=== PATIENT | female | born 1980 | race Caucasian/White ===

== ENCOUNTER 2017-11-11 | Emergency (ER) | payer SELFPAY ==
[2017-11-11 00:01] VITALS: BP 154/90; PULSE 91; RESP 21; TEMP 36.4; O2SAT 94; BMI 41.5
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
[2017-11-11] MEDS: fentaNYL 100 MCG/2 ML Ampul 50 MCG IV (00:20)
[2017-11-11] MEDS: 0.9% Normal Saline 1,000 ML 150 ML IV ×2 (00:20→03:51)
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
[2017-11-11 00:50] LABS: Absolute Lymphocyte Count 5.98 X10^3/ul (0.83-4.51); Absolute Neutrophil Count 21.8 X10^3/uL (2.0-7.7); Basophil# 0.06 X10^3/uL; Basophil% 0.2 % (0-1); Differential Indicated SCAN CRITERIA MET; Eosinophil# 0.43 X10^3/uL; Eosinophils% 1.4 % (0-5); Hemoglobin 13.6 g/dl (12.0-15.0); Lymphocyte # 5.98 X10^3/ul (4.0); Mean Corp Hgb Conc 33.2 g/gl (32-36); Mean Corpuscular Hgb 29.6 pg (27.0-32.0); Mean Corpuscular Volume 89.3 fL (81-99); Mean Platelet Vol. 11.4 fl (6.2-12.0); Monocyte# 1.32 X10^3/uL; Monocyte% 4.4 % (0-10); Neutrophil # 21.78 X10^3/uL (2.7-7.7); Neutrophil % 72.8 % (47-70); POSITIVE COUNT NO; POSITIVE DIFFERENTIAL YES; POSITIVE MORPHOLOGY YES; Platelet Count 308 K/mm3 (150-450); RBC Distribution Width CV 13.6 % (11.6-14.6); RBC Distribution Width SD 44.3 fl (35.1-43.9); Red Blood Count 4.59 M/mm3 (4.2-5.4); White Blood Count 29.9 K/mm3 (4.4-11.0)
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
[2017-11-11 01:06] LABS: Anion Gap 7 (5-15); BUN 13 mg/dL (7-18); BUN/Creat Ratio 19.5 RATIO (10-20); Calcium,Total 8.3 mg/dL (8.5-10.1); Chloride 107 mmol/L (98-107); Creatinine, Serum 0.67 mg/dL (0.55-1.02); EST Glomerular Filtration Rate 106 mL/min (>60); Est Glom Filt Rate - Afr Amer 129 mL/min (>60); Estimated Creatinine Clearance 118.22 ml/min; Glucose 211 mg/dL (70-110); Potassium 3.8 mmol/L (3.5-5.1); Sodium Level 140 mmol/L (136-145)
[2017-11-11 01:09] LABS: International Normalized Ratio 1.1; Prothrombin Time (Protime)PT. 13.4 SECONDS (11.7-14.9)
[2017-11-11 01:10] LABS: Partial Thromboplast Time 28.6 Seconds (24.1-36.2)
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
[2017-11-11 01:12] VITALS: BP 128/73; PULSE 82; RESP 18; O2SAT 94
[2017-11-11 02:10] VITALS: BP 145/80; PULSE 76; RESP 14; O2SAT 92
--- NOTE | 2017-11-11 02:35 | ED.RN ---
[facility] CONTACT FOR TRANSFER OF PATIENT AT THIS TIME
[2017-11-11 02:42] LABS: Bacteria 0 SEEN /hpf (None Seen); Color, Urine Red (Yellow); Glucose, Dipstick 50 mg/dl (Normal); Ketone-Dipstick 5 mg/dl (Negative); Leukocyte Esterase-Dipstick 100 /ul (Negative); Mucous, Urine 0 SEEN /hpf (<or=2+); Nitrite-Dipstick Positive (Negative); Occult Blood-Urine 250 /ul (Negative); Protein-Dipstick 100 mg/dl (Negative); Urine Bilirubin Dipstick Negative (Negative); Urine Clarity Cloudy (Clear); Urine Urobilinogen 1 mg/dl (Normal)
[2017-11-11 02:48] LABS: Red Blood Cells-Urine 25-50 SEEN /hpf (0-5); Squamous Epithelial Cells - UA 5-10 SEEN /hpf (5-10); White Blood Cells 10-25 SEEN /hpf (0-5)
--- NOTE | 2017-11-11 02:54 | ED.RN ---
[facility] CALLED FOR TRANSPORT AT THIS TIME
[2017-11-11 03:08] VITALS: BP 153/79; PULSE 78; PULSE 79; RESP 21; TEMP 37; O2SAT 93; O2SAT 94
[2017-11-11 03:09] VITALS: O2SAT 94
--- NOTE | 2017-11-11 03:20 | NURSING ---
REPORT CALLED TO SHAHANA ROBISON
== END 2017-11-11 04:07 | disposition short-term general hospital (02) ==
PROVIDERS: Emergency Provider Emergency Medicine
DX: S37.012A Minor contusion of left kidney, initial encounter (principal); S37.011A Minor contusion of right kidney, initial encounter; S36.029A Unspecified contusion of spleen, initial encounter; S22.32XA Fracture of one rib, left side, initial encounter for closed fracture; S60.212A Contusion of left wrist, initial encounter; S80.12XA Contusion of left lower leg, initial encounter; S80.11XA Contusion of right lower leg, initial encounter; R51 Headache; M54.2 Cervicalgia; E66.9 Obesity, unspecified; E11.9 Type 2 diabetes mellitus without complications; V89.2XXA Person injured in unspecified motor-vehicle accident, traffic, initial encounter; Y93.9 Activity, unspecified; Y92.9 Unspecified place or not applicable; Z79.84 Long term (current) use of oral hypoglycemic drugs; Z79.4 Long term (current) use of insulin
CPT/HCPCS: 70450; 71045; 71260; 72125; 72170; 73110; 73590; 74177; 80048; 81001; 85025; 85610; 85730; 86850; 86900; 93005; 96361; 96374; 99285; J7030; Q9967; A4216

== ENCOUNTER 2017-11-24 16:32 | Emergency (ER) | payer SELFPAY ==
[2017-11-24 16:32] VITALS: BP 124/86; PULSE 88; RESP 16; TEMP 36.7; O2SAT 97; BMI 36.9
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
== END 2017-11-24 18:32 | disposition home or self-care (01) ==
PROVIDERS: Emergency Provider Emergency Medicine
DX: S22.32XA Fracture of one rib, left side, initial encounter for closed fracture (principal); V89.2XXA Person injured in unspecified motor-vehicle accident, traffic, initial encounter; W19.XXXA Unspecified fall, initial encounter; Y93.9 Activity, unspecified; Y92.9 Unspecified place or not applicable; J98.11 Atelectasis; E66.9 Obesity, unspecified; E11.9 Type 2 diabetes mellitus without complications; Z79.84 Long term (current) use of oral hypoglycemic drugs; Z79.4 Long term (current) use of insulin; Z72.0 Tobacco use
CPT/HCPCS: 71250; 99282

== ENCOUNTER 2017-12-29 18:33 | Emergency (ER) | payer OTHER, SELFPAY ==
[2017-12-29 18:34] VITALS: BP 133/82; PULSE 82; RESP 14; TEMP 36.8; O2SAT 97; BMI 35.9
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
--- NOTE | 2017-12-29 19:24 | ED.DEP ---
ED Disposition - Plan for ED Patient: Chief Complaint: Ear Problem Instructions: ED Otitis Externa Prescriptions: Hydrocodone Bitart/Apap 5-325 [[place] 5/325] 1 tab PO Q6H PRN PRN 3 Days #12 tab PRN Reason: Pain Ciprofloxacin HCl/Dexameth [Ciprodex Otic Suspension] 4 drp RIGHT EAR BID 7 Days drops.susp
[2017-12-29 19:40] VITALS: PULSE 87; RESP 14; O2SAT 96
== END 2017-12-29 19:42 | disposition home or self-care (01) ==
PROVIDERS: Emergency Provider Emergency Medicine
DX: M26.601 Right temporomandibular joint disorder, unspecified (principal); H60.91 Unspecified otitis externa, right ear; Z87.828 Personal history of other (healed) physical injury and trauma; E11.9 Type 2 diabetes mellitus without complications; Z79.4 Long term (current) use of insulin; Z79.84 Long term (current) use of oral hypoglycemic drugs; Z72.0 Tobacco use
CPT/HCPCS: 99282

== ENCOUNTER 2018-03-06 20:05 | Emergency (ER) | payer OTHER, SELFPAY ==
[2018-03-06 20:06] VITALS: BP 121/57; PULSE 76; RESP 20; TEMP 36.7; O2SAT 97; BMI 35.8
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
[2018-03-06 20:57] LABS: Bacteria 0 SEEN /hpf (None Seen); Mucous, Urine 0 SEEN /hpf (<or=2+); White Blood Cells 0 SEEN /hpf (0-5)
[2018-03-06 20:58] LABS: Color, Urine Yellow (Yellow); Glucose, Dipstick Normal (Normal); Ketone-Dipstick Negative (Negative); Leukocyte Esterase-Dipstick Negative /ul (Negative); Nitrite-Dipstick Negative (Negative); Occult Blood-Urine 25 /ul (Negative); Protein-Dipstick Negative (Negative); Specific Gravity, Urine 1.015 (1.002-1.030); Urine Bilirubin Dipstick Negative (Negative); Urine Clarity Clear (Clear); Urine Urobilinogen Normal (Normal)
[2018-03-06] MEDS: 0.9% Normal Saline 1,000 ML 250 ML IV (21:02)
[2018-03-06] MEDS: Ondansetron 4 MG/2 ML Vial IV (21:02)
[2018-03-06] MEDS: Ketorolac 30 MG/ML Syringe IV (21:02)
[2018-03-06 21:12] LABS: Absolute Lymphocyte Count 4.09 X10^3/ul (0.83-4.51); Absolute Neutrophil Count 5.6 X10^3/uL (2.0-7.7); Basophil# 0.05 X10^3/uL; Basophil% 0.5 % (0-1); Eosinophils% 4.6 % (0-5); Hematocrit 46.2 % (37-47); Hemoglobin 15.8 g/dl (12.0-15.0); Lymphocyte # 4.09 X10^3/ul (4.0); Lymphocyte % 37.6 % (19-41); Mean Corp Hgb Conc 34.2 g/gl (32-36); Mean Corpuscular Hgb 29.4 pg (27.0-32.0); Mean Corpuscular Volume 85.9 fL (81-99); Mean Platelet Vol. 11.6 fl (6.2-12.0); Monocyte# 0.63 X10^3/uL; Monocyte% 5.8 % (0-10); Neutrophil # 5.57 X10^3/uL (2.7-7.7); POSITIVE COUNT NO; POSITIVE DIFFERENTIAL NO; POSITIVE MORPHOLOGY NO; Platelet Count 301 K/mm3 (150-450); RBC Distribution Width CV 13.8 % (11.6-14.6); RBC Distribution Width SD 43.1 fl (35.1-43.9); Red Blood Count 5.38 M/mm3 (4.2-5.4); White Blood Count 10.9 K/mm3 (4.4-11.0)
[2018-03-06 21:16] LABS: Red Blood Cells-Urine 0-5 SEEN /hpf (0-5); Squamous Epithelial Cells - UA 0-5 SEEN /hpf (5-10)
[2018-03-06 21:23] LABS: Anion Gap 6 (5-15); BUN 5 mg/dL (7-18); BUN/Creat Ratio 9.6 RATIO (10-20); Calcium,Total 8.7 mg/dL (8.5-10.1); Chloride 103 mmol/L (98-107); Creatinine, Serum 0.52 mg/dL (0.55-1.02); EST Glomerular Filtration Rate 141 mL/min (>60); Est Glom Filt Rate - Afr Amer 171 mL/min (>60); Estimated Creatinine Clearance 140.01 ml/min; Glucose 113 mg/dL (74-106); Potassium 3.6 mmol/L (3.5-5.1); Sodium Level 138 mmol/L (136-145)
[2018-03-06 21:28] LABS: Pregnancy, Serum, hCG Quali. NEGATIVE Negative (0-9 Nonpreg)
[2018-03-06 22:49] VITALS: BP 108/69; PULSE 71; RESP 16; O2SAT 100
== END 2018-03-06 22:51 | disposition home or self-care (01) ==
PROVIDERS: Emergency Provider Emergency Medicine
DX: S22.42XK Multiple fractures of ribs, left side, subsequent encounter for fracture with nonunion (principal); V89.2XXD Person injured in unspecified motor-vehicle accident, traffic, subsequent encounter; R30.0 Dysuria; R35.0 Frequency of micturition; M54.9 Dorsalgia, unspecified; E11.9 Type 2 diabetes mellitus without complications; Z87.891 Personal history of nicotine dependence; Z79.84 Long term (current) use of oral hypoglycemic drugs; Z79.4 Long term (current) use of insulin
CPT/HCPCS: 74176; 80048; 81001; 84703; 85025; 96361; 96374; 96375; 99284; J7030; A4216; J2405

== ENCOUNTER 2018-04-11 14:18 | Emergency (ER) | payer OTHER, SELFPAY ==
[2018-04-11 14:18] VITALS: BP 138/79; PULSE 85; RESP 18; TEMP 37.1; O2SAT 98; BMI 35.8
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
[2018-04-11 17:02] VITALS: BP 132/78; PULSE 76; RESP 16; O2SAT 98
== END 2018-04-11 17:07 | disposition home or self-care (01) ==
LOC: ED 15:29
PROVIDERS: Emergency Provider Emergency Medicine
DX: S80.02XA Contusion of left knee, initial encounter (principal); M25.511 Pain in right shoulder; M54.2 Cervicalgia; W01.0XXA Fall on same level from slipping, tripping and stumbling without subsequent striking against object, initial encounter; W50.0XXA Accidental hit or strike by another person, initial encounter; Y93.9 Activity, unspecified; Y92.9 Unspecified place or not applicable; J45.909 Unspecified asthma, uncomplicated; E11.9 Type 2 diabetes mellitus without complications; Z79.4 Long term (current) use of insulin; Z79.84 Long term (current) use of oral hypoglycemic drugs; Z72.0 Tobacco use
CPT/HCPCS: 72040; 73030; 73564; 99282

== ENCOUNTER 2018-08-22 23:35 | Emergency (ER) | payer OTHER, SELFPAY ==
[2018-08-22 23:36] VITALS: BP 114/87; PULSE 83; RESP 18; TEMP 37; O2SAT 97; BMI 35.5
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
[2018-08-23 01:06] LABS: Bedside Glucose 319 mg/dL (70-110)
[2018-08-23 02:22] VITALS: BP 138/78; PULSE 78; RESP 16; O2SAT 98
--- NOTE | 2018-08-23 02:25 | ED.DEP ---
ED Disposition - Plan for ED Patient: Chief Complaint: Lower Extremity Injury Instructions: ED Sprain Ankle W X Ray, ED Hyperglycemia Diabetic Prescriptions: Glipizide 10 mg PO DAILY #60 tab Metformin HCl 1,000 mg PO BID #60 tab Referrals: Care Physician,No Primary [Primary Care Provider] - Additional Instructions: Follow-up with your doctor on September 07 as scheduled. Continue using ibuprofen for ankle pain. Wear the splint as needed for comfort. Rest the ankle, elevate the leg and apply ice to the ankle 3-4 times a day for 20 minutes each time to help with pain and swelling. Take your diabetic medications as prescribed until you follow-up with your doctor and have a reevaluation for any needed changes. If you have any worsening of your condition or any new concerning symptoms, please return immediately to the emergency department for another evaluation.
== END 2018-08-23 02:32 | disposition home or self-care (01) ==
PROVIDERS: Emergency Provider Emergency Medicine
DX: S93.401A Sprain of unspecified ligament of right ankle, initial encounter (principal); W01.0XXA Fall on same level from slipping, tripping and stumbling without subsequent striking against object, initial encounter; Y93.9 Activity, unspecified; Y92.9 Unspecified place or not applicable; E11.65 Type 2 diabetes mellitus with hyperglycemia; Z91.14 Patient's other noncompliance with medication regimen; Z79.84 Long term (current) use of oral hypoglycemic drugs
CPT/HCPCS: 73590; 73610; 82962; 99283

== ENCOUNTER 2019-01-07 08:19 | Emergency (ER) | payer OTHER, SELFPAY ==
[2019-01-07 08:19] VITALS: BMI 36.9
[2019-01-07 08:21] VITALS: BP 155/100; PULSE 89; RESP 20; TEMP 36.4; O2SAT 98; BMI 35.0
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
--- NOTE | 2019-01-07 08:39 | ED.DCSUM_ITS ---
- ER Visit Summary Date of Service: 01/07/19 Chief Complaint: Right facial pain History of Present Illness: The patient is a 38 F who states she has a history of TMJ pain and since yesterday afternoon she has been crying with pain. She states that all over the right side of her face and into her ear. She states she recently had a right otitis media for which she took antibiotics. She denies any rash. Her pain is worse with chewing. She notes that she has very bad dentition but cannot afford to have her teeth pulled. She denies any new dental pain. No recent rhinorrhea or sinus issues. No fevers. She states my is somewhere and hates me. She denies any physical abuse she denies any emotional abuse. She denies any suicidal or homicidal ideation. Physical Examination: Afebrile vital signs are stable Gen: Well-nourished well-developed Head: Normocephalic atraumatic Eyes: Perrl EOMI ENT: TMs clear no rhinorrhea moist mucous membranes extremely poor dentition. There is no dental abscess noted. There is no trismus. There is no rash of the face or ear canal. There is no neck swelling or significant lymphadenopathy. Neck: Supple no lymphadenopathy no JVD nontender CVS: Regular rate rhythm no murmurs normal S1-S2 Respiratory: No distress clear to auscultation bilaterally chest nontender Abdomen: Soft nontender nondistended normal bowel sounds no masses Back: Nontender Extremity: Nontender no edema Skin: Normal color no rash Neuro: alert orientated ?3 CN II-XII intact normal strength sensation reflexes gait cerebellar Psych: Patient stops crying to give an angry response Emergency Department Course and Treatment: Patient will be given a dose of Toradol and Norflex IM. I will write for Toradol and Flexeril at home. She wishes to see ENT for consultation I will give her ENT medical scientific liaison. She is a diabet ic and states she does not have a primary care physician. She states that she has no time to see one. Patient was advised that she really should establish with one. Impression: 1. Right facial pain This note was generated with [employer] dictation software. It may contain incorrect words, spelling, and punctuation that were not noted in review of the chart prior to signing ED Disposition - Plan for ED Patient: Disposition: Home or Assisted Living Instructions: ED TMJ Syndrome Prescriptions: Ketorolac [Toradol] 10 mg PO Q8H PRN #15 tab PRN Reason: Pain Cyclobenzaprine [Flexeril] 10 mg PO TID PRN #15 tab PRN Reason: Muscle Spasm Referrals: Richard Sandoval MD [STAFF PHYSICIAN] - (CALL FOR ENT EVALUATION OF YOUR TMJ)
[2019-01-07] MEDS: Ketorolac 60 MG/2 ML Vial IM (08:40)
[2019-01-07] MEDS: Orphenadrine 60 MG/2 ML Ampul IM (08:40)
[2019-01-07 09:03] VITALS: BP 145/78; PULSE 80; RESP 16; O2SAT 97
== END 2019-01-07 09:11 | disposition home or self-care (01) ==
LOC: ED 09:06
PROVIDERS: Emergency Provider Emergency Medicine
DX: R51 Headache (principal); E11.9 Type 2 diabetes mellitus without complications; Z72.0 Tobacco use
CPT/HCPCS: 96372; 99282

== ENCOUNTER 2019-04-16 17:10 | Emergency (ER) | payer OTHER, SELFPAY ==
[2019-04-16 17:11] VITALS: BP 107/62; PULSE 84; RESP 16; TEMP 35.7; O2SAT 96; BMI 32.8
[2019-04-16] MEDS: morphine 8 MG/ML Syringe IV (18:39)
[2019-04-16] MEDS: Ondansetron 4 MG/2 ML Vial IV (18:39)
[2019-04-16] MEDS: 0.9% Normal Saline 1,000 ML 1000 ML IV (18:39)
[2019-04-16 18:50] LABS: Bedside Glucose 357 mg/dL (70-110)
[2019-04-16 18:50] LABS: Bedside Glucose 338 mg/dL (70-110)
--- NOTE | 2019-04-16 19:35 | ED.VISSUMM ---
- ER Visit Summary Date of Service: 04/16/19 Chief Complaint: Abscess History of Present Illness: The patient is a 38 F presenting with abscess on her buttock. She states she noticed this on Tuesday. She complains of pain with sitting. She states she noticed drainage from the abscess today. She has been using warm compresses. She has a history of similar complaints. She has a history of diabetes. She presents due to concern of possibly needing antibiotics. Denies other complaints. Physical Examination: Vitals are stable. Patient is afebrile. Alert no acute distress. HEENT exam is unremarkable. Neck is supple. Lungs are clear and equal bilaterally. Heart is regular rate and rhythm. Abdomen is soft nontender nondistended. Right buttock 3 cm abscess with drainage, does not track toward the rectum Extremities are unremarkable. Skin is warm and dry. No focal neurologic deficit. Remainder of exam is unremarkable. Emergency Department Course and Treatment: Abscess is already draining. She was offered I&D. Patient declines this procedure. BGT was 338. She was given IV fluids, morphine, Zofran. She was given Bactrim and Keflex. She is advised to watch this closely for worsening infection. Advised to follow-up with primary care physician. Advised return to ED if worsening complaints. Disposition: Discharge home Impression: Abscess, buttock This note was generated with [employer] dictation software. It may contain incorrect words, spelling, and punctuation that were not noted in review of the chart prior to signing ED Disposition - Plan for ED Patient: Referrals: Care Physician,No Primary [Primary Care Provider] -
--- NOTE | 2019-04-16 19:35 | ED.RN ---
DR. FOSTER SAID I COULD STOP DOING SEPSIS SCREENS ON THIS PATIENT.
[2019-04-16] MEDS: Insulin Lispro 100 UNIT/ML INSULN.PEN 10 UNIT SC (19:40)
[2019-04-16] MEDS: Smz/Tmp Ds Tablet 1 TABLET PO (19:40)
[2019-04-16] MEDS: Cephalexin 250 MG Capsule 500 MG PO (19:41)
[2019-04-16 19:45] VITALS: BP 97/55; PULSE 85; RESP 20; O2SAT 95
[2019-04-16 20:36] LABS: Bedside Glucose 311 mg/dL (70-110)
--- NOTE | 2019-04-16 21:12 | ED.DEP ---
ED Disposition - Plan for ED Patient: Instructions: ABSCESS, Antiobiotic Treatment Only Prescriptions: Smz/Tmp Ds [Bactrim Ds] 1 tablet PO BID #14 tablet Cephalexin [Keflex] 500 mg PO Q6 #40 capsule Referrals: Douglas Gutierrez III, MD [STAFF PHYSICIAN] -
[2019-04-16 21:47] LABS: Anion Gap 6 (5-15); BUN 7 mg/dL (7-18); BUN/Creat Ratio 12.3 RATIO (10-20); Calcium,Total 8.4 mg/dL (8.5-10.1); Chloride 101 mmol/L (98-107); Creatinine, Serum 0.57 mg/dL (0.55-1.02); EST Glomerular Filtration Rate 127 mL/min (>60); Est Glom Filt Rate - Afr Amer 154 mL/min (>60); Glucose 272 mg/dL (74-106); Potassium 3.9 mmol/L (3.5-5.1); Sodium Level 134 mmol/L (136-145)
[2019-04-16 22:03] VITALS: BP 116/53; PULSE 62; RESP 18; O2SAT 93
== END 2019-04-16 22:05 | disposition home or self-care (01) ==
PROVIDERS: Emergency Provider Emergency Medicine
DX: L02.31 Cutaneous abscess of buttock (principal); E11.9 Type 2 diabetes mellitus without complications; Z79.84 Long term (current) use of oral hypoglycemic drugs; Z79.4 Long term (current) use of insulin
CPT/HCPCS: 80048; 82962; 96361; 96372; 96374; 96375; 99284; J7030; A4216; J2405

== ENCOUNTER 2019-04-22 18:03 | Inpatient (IN) | payer OTHER, SELFPAY ==
[2019-04-22] VITALS (10 sets, daily range): BP systolic 117–139; BP diastolic 70–91; PULSE 89–102; RESP 16–18; TEMP 36.9–37.7; O2SAT 92–98; BMI 33.3
--- NOTE | 2019-04-22 | ABS_PTH ---
PATIENT: SYDNEY SILVER LOC: [facility] U#:[id number] AGE/SX: 38/F ROOM: ICU02 RE04/22/[address]: Dr. Krissy Dumont DO : 1980 BED: 1 DIS: 04/25/2019 SPEC #: [id number] RECD: 04/23/19 07:47 STATUS: BOB REQ #: [id number] MARY: 04/22/19 00:[address]: Bryce Huynh DEPT: SURGICAL PATHOLOGY RECD BY: Tc Shepard ENTERED: 04/23/19 11:02 SP TYPE: Abscess OTHR DR: DO Dr. Tevin Driscoll MD Dr. Marc Fiorentino, MD Dr. Richard Guttman, MD Julie Podlogar, SHOT LIGHTER-C Tissues: Perineum, NOS Procedures: PAS Fungus (control) Special Stain Group I Surgery Specimen Level III AFB Stain (control) Comments: @ Ordering doctor for SUIII edited from to @ chelsea GASPAR at 04/23/19 1424 @ Submitting doctor edited from to @ by HUBERT at 04/23/19 1424 HEADER OPERATION: Incision and drainage perirectal abscess PRE-OP DIAGNOSIS: Perirectal abscess TISSUE SUBMITTED: Skin and fat, necrotizing fasciitis MICROSCOPIC DIAGNOSIS Skin and fat, necrotizing fasciitis: Pieces of skin and fibroadipose and fibroconnective tissue with acute inflammation and abscess formation. Special stains for acid fast bacilli and fungi are negative for organisms; matched controls are appropriate. CORRIE:patrick 04/24/19 MICROSCOPIC DESCRIPTION Slides are reviewed. GROSS DESCRIPTION Received in fixative is one container labeled with the patient's name and designated skin and fat, necrotizing fasciitis. The specimen consists of multiple irregular fragments of skin with underlying tissue that in aggregate measure 15 x 13 x 5 cm. Sections of the underlying tissue reveal congested, hemorrhagic and necrotic cut surfaces. Gang Worker sections are submitted in three cassettes. / CORRIE:patrick 04/23/19 TC:2 CPT: 68428, 52947 x2
--- NOTE | 2019-04-22 18:14 | CT_ITS ---
STUDY: CT PELVIS WITHOUT CONTRAST REASON FOR EXAM: Female, 38 years old. Right buttock abscess, one week, leukocytosis, on antibiotics, previously seen April 16. RADIATION DOSAGE (If Supplied By Facility): CTDIvol = ( 28.20 ) mGy, DLP = ( 1169.16 ) mGycm TECHNIQUE: Transaxial imaging of the pelvis was performed without oral contrast, and without intravenous administration of contrast material. Coronal and sagittal 2-D MPR Individualized dose optimization techniques were used for this CT. COMPARISON: CT abdomen and pelvis 03/06/2018, 11/11/2017 FINDINGS: Body wall soft tissues: There is diffuse severe edema throughout the inferior most aspect of the right gluteal superficial soft tissues, involving the subcutaneous fat, extending into the proximal medial thigh, associated with prominent skin thickening, with mild edema extending into the right labia. Moderate edema extending upward in the right inguinal canal. There is no defined abscess. Shotty right and left inguinal lymph nodes not pathologically enlarged. Right iliac chain lymph node just deep to the internal inguinal ring, enlarged, 19 mm. Osseous structures: No acute process. Intrapelvic: Esparza catheter in place. No acute intrapelvic process is evident. CT/Pelvis without IV Contrast IMPRESSION: Extensive cellulitis of the inferior right buttock soft tissues extending into the proximal medial thigh, perineum and right labia. Without abscess. Associated with mild lymphadenopathy. Electronically Signed: Bryce Macedo MD at 19:27 EDT Tel , Service support ,
[2019-04-22] MEDS: 0.9% Normal Saline 1,000 ML 150 ML IV (18:21)
[2019-04-22] MEDS: Ondansetron 4 MG/2 ML Vial IV (18:22)
[2019-04-22] MEDS: Morphine 4 MG/ML Syringe IV (18:23)
[2019-04-22 18:45] LABS: Absolute Lymphocyte Count 1.88 X10^3/ul (0.83-4.51); Absolute Neutrophil Count 14.9 X10^3/uL (2.0-7.7); Basophil# 0.06 X10^3/uL; Basophil% 0.3 % (0-1); Eosinophil# 0.14 X10^3/uL; Eosinophils% 0.7 % (0-5); Hematocrit 40.8 % (37-47); Hemoglobin 14.3 g/dl (12.0-15.0); Lymphocyte # 1.88 X10^3/ul (4.0); Lymphocyte % 9.9 % (19-41); Mean Corpuscular Hgb 30.1 pg (27.0-32.0); Mean Corpuscular Volume 85.9 fL (81-99); Mean Platelet Vol. 12.1 fl (6.2-12.0); Monocyte# 1.66 X10^3/uL; Monocyte% 8.8 % (0-10); Neutrophil # 14.92 X10^3/uL (2.7-7.7); Neutrophil % 78.7 % (47-70); Platelet Count 319 K/mm3 (150-450); RBC Distribution Width CV 13.1 % (11.6-14.6); RBC Distribution Width SD 41.3 fl (35.1-43.9); Red Blood Count 4.75 M/mm3 (4.2-5.4)
[2019-04-22 18:46] LABS: Anion Gap 7 (5-15); BUN 11 mg/dL (7-18); BUN/Creat Ratio 18.1 RATIO (10-20); Calcium,Total 9.1 mg/dL (8.5-10.1); Chloride 98 mmol/L (98-107); Creatinine, Serum 0.61 mg/dL (0.55-1.02); Differential Indicated SCAN CRITERIA MET; EST Glomerular Filtration Rate 117 mL/min (>60); Est Glom Filt Rate - Afr Amer 142 mL/min (>60); Estimated Creatinine Clearance 118.21 ml/min; Glucose 343 mg/dL (74-106); POSITIVE COUNT NO; POSITIVE DIFFERENTIAL YES; POSITIVE MORPHOLOGY NO; Potassium 3.7 mmol/L (3.5-5.1); Sodium Level 130 mmol/L (136-145)
[2019-04-22 19:13] LABS: Differential Comment SCANNED
--- NOTE | 2019-04-22 19:52 | ED.VISSUMM ---
- ER Visit Summary Date of Service: 04/22/19 Chief Complaint: [Abscess on right buttock] History of Present Illness: The patient is a 38 F [resents to the emergency department complaint of an abscess to the right buttock that she has had there for about 9 days. Patient was seen in the emergency department about 6 days ago started on Bactrim and cephalexin. At that time patient states that the wound was draining. Patient states that she is not getting better and now has severe pain and having a hard time getting out of bed secondary to pain. Patient is having a hard time moving around because of the pain. The wound continues to drain. Patient has had subjective fever and sweats at home. Patient is a diabetic. She denies prior surgical history.] Physical Examination: [HEENT-PERRLA, EOMI. Cranial nerves II through XII grossly intact. TMs clear. Mucous membranes moist. No adenopathy. Cardiovascular-regular rate and rhythm without murmur or ectopy Lungs-clear to auscultation, chest wall stable without crepitus or subcu emphysema Abdomen-normoactive bowel sounds, soft, nontender, no rebound or rigidity, no peritoneal signs. Right buttock-patient has diffuse erythema, induration, and cellulitic changes. Patient has blistering of the skin. There is a foul-smelling odor and drainage noted from the wound. Extremities-intact ?4, normal range of motion, normal pulses, atraumatic] Test Results: [CBC with differential obtained showed a white blood cell count of 19,000, hemoglobin 14, hematocrit 41, platelets 319. Chemistries unremarkable. CT scan of the pelvis without contrast showed cellulitic changes however no discrete abscess.] Emergency Department Course and Treatment: [Patient was started on vancomycin and Zosyn. Patient was given morphine and Zofran for pain. Case was discussed with Dr. Bryce Gregorio who is on-call for general surgery who evaluated patient and believes that the wound will require surgical debridement. Patient will be taken to the operating room and then admitted.] Treatment Plan: [to OR for surgical incision and drainage and debridement.] Disposition: [Admit] Impression: [Right buttock abscess/cellulitis] This note was generated with Tomfooleryation software. It may contain incorrect words, spelling, and punctuation that were not noted in review of the chart prior to signing ED Disposition - Plan for ED Patient: Referrals: DanylogYusra blas DIRECTOR OF RESEARCH-C [Primary Care Provider] -
[2019-04-22 20:21] LABS: Bedside Glucose 303 mg/dL (70-110)
[2019-04-22 20:45] LABS: Internal QC Validated? YES +Cl - CLEAR BKGD; Pregnancy, Serum, hCG Quali. NEGATIVE Negative
--- NOTE | 2019-04-22 21:22 | PCM.CONS.GEN ---
Reason for Consult Date of Consultation: 04/22/19 Reason for Consultation: BUTTOCK ABSCESS/RULE OUT NECROTIZING INFECTION History of Present Illness: The patient is a 38 year old F with a 9 day history of a right buttock/peroneal abscess. She was seen in the ER 6 days previously and started on oral antibiotics - Bactrim and Keflex. She is now noting poorly controlled blood glucose, purulent drainage and spreading, painful redness. She presented to the ER. WBC count 19,000, blood glucose>300. CT scan of the pelvis was obtained. There was noted to have diffuse severe edema throughout the inferior aspect of the right gluteal soft tissue areas involving the saphenous fat extending the proximal medial thigh with associated skin thickening and edema extending the right labia. There was edema extending up regarding the right inguinal canal without blood was listed as defined abscess. the patient has a history of type 2 diabetes. She denies other significant past medical history. She has no past surgical history. she smokes with history of one half pack of cigarettes per day. She notes very rare alcohol use. She denies other substances. Past Medical History Past Medical History (Chronic Problems): Chronic Problems Asthma (Chronic) Type 2 diabetes mellitus (Chronic) Allergies clindamycin Allergy (Verified 04/22/19 18:04) Hives BURING AND ITCHING SKIN WITH HIVES Home Medications: Ambulatory Orders Medication Instructions Recorded Glipizide 10 mg PO DAILY #60 tab 08/23/18 Metformin HCl 1,000 mg PO BID #60 tab 08/23/18 Cephalexin [Keflex] 500 mg PO Q6 #40 cap 04/16/19 Insulin NPH Human Isophane 10 units SQ BID 04/16/19 [Novolin N] Smz/Tmp Ds [Bactrim Ds] 1 tab PO BID #14 tab 04/16/19 Surgical History: no surgical history Smoking Status: Current every day smoker - *Family History Maternal History Items: Unknown - Adopted. Paternal History Items: Unknown - Patient is adopted. Review of Systems Constitutional: Reports: Fever, Weakness, Fatigue Cardiovascular: Denies: Chest Pain, Palpitations Respiratory: Denies: Cough Gastrointestinal: Denies: Abdominal Pain, Nausea, Vomiting Genitourinary: Denies: Dysuria Musculoskeletal: Denies: Joint Pain, Joint Tenderness Skin: Reports: Skin Changes Neurological: Denies: Numbness, Tingling, Focal weakness Patient Problems: Active and Suspected Problems Acute right gluteal cellulitis (Acute) - Physical Exam General: Alert, Oriented x3, Cooperative, - - tearful Lungs: Clear to auscultation, Normal air movement Cardiovascular: Regular rate, No murmurs Abdomen: Bowel Sounds Present, Soft, Non Tender Extremities: - - right buttock and perineal area-large spreading bright red erythematous area with 3 sinuses draining purulent reddish brown pus just lateral to the right posterior labial area. This has edema on the entire labia and some edema on the inner thigh Vital Signs Temp Pulse Resp BP Pulse Ox 99.0 F 95 18 121/80 H 97 04/22/19 20:04 04/22/19 20:04 04/22/19 20:04 04/22/19 20:04 04/22/19 20:04 Oxygen Delivery Method Room Air Weight: 93.5 kg Body Mass Index (BMI) 33.3 Finger Stick Blood Glucose 311 Laboratory Tests Past 24 Hrs 04/22/19 04/22/19 04/22/19 18:17 18:17 18:17 WBC 19.0 H RBC 4.75 Hgb 14.3 Hct 40.8 MCV 85.9 MCH 30.1 MCHC 35.0 RDW 13.1 RDW Differential 41.3 Plt Count 319 MPV 12.1 H Immature Gran % (Auto) 1.600 H Neut % (Auto) 78.7 H Lymph % (Auto) 9.9 L [place] % (Auto) 8.8 Eos % (Auto) 0.7 Baso % (Auto) 0.3 Absolute Neuts (auto) 14.9 H Absolute Lymphs (auto) 1.88 Total Counted Not Reportable Differential Comment SCANNED Sodium 130 L Potassium 3.7 Chloride 98 Carbon Dioxide 25.0 Anion Gap 7 BUN 11 Creatinine 0.61 Estim Creat Clear Calc 118.21 Est GFR (MDRD) Af Amer 142 Est GFR (MDRD) Non-Af 117 BUN/Creatinine Ratio 18.1 Glucose 343 H Lactic Acid Calcium 9.1 Serum , Qual NEGATIVE 04/22/19 20:00 WBC RBC Hgb Hct MCV MCH MCHC RDW RDW Differential Plt Count MPV Immature Gran % (Auto) Neut % (Auto) Lymph % (Auto) [place] % (Auto) Eos % (Auto) Baso % (Auto) Absolute Neuts (auto) Absolute Lymphs (auto) Total Counted Differential Comment Sodium Potassium Chloride Carbon Dioxide Anion Gap BUN Creatinine Estim Creat Clear Calc Est GFR (MDRD) Af Amer Est GFR (MDRD) Non-Af BUN/Creatinine Ratio Glucose Lactic Acid Cancelled Calcium Serum , Qual POC Glucose 04/22/19 20:06 POC Glucose 303 H Assessment/Plan All Active Problems Acute right gluteal cellulitis (Acute) abscess, examination most consistent with necrotizing fasciitis Iplan for OR exploration/possible drainage with anticipated wide debridementdebridment. The patient understands the risks, benefits, complications and alternatives to surgical procedure understands that there is a likelihood that she'll have a wide tissue debridement given the patient's clinical findings. The patient consents. we'll plan for broad-spectrum antibiotics-Zosyn and vancomycin area Cultures will be taken. Patient's blood glucoses will be monitored and she will placed on a sliding scale. I will consult hospitalist service for assistance in her management. If this is necrotizing fasciitis is anticipated we will consult plastic surgery for further debridement/management/wound care postoperatively
--- NOTE | 2019-04-22 21:25 | HP.PCM_ITS ---
Problem List (1) Acute right gluteal cellulitis Status: Acute (2) Asthma Status: Chronic (3) Type 2 diabetes mellitus Status: Chronic History of Present Illness Date of Admission: 04/22/19 Chief Complaint: Worsening pain, erythema and drainage of the right buttock infection. The patient is a 38 year old F with past medical history as mentioned above presented to the emergency room because of worsening pain, drainage and redness on the right buttock. Patient was seen in PACU right before going for surgery. Around 9 days ago, patient was seen in the emergency department for right buttock pain, redness and swelling, was discharged on Bactrim and Keflex for acute right gluteal cellulitis. Patient stated that she has been taking Bactrim and Keflex for the last 6 days. She complained of increasing pain on the right buttock, dull aching pain, 7-8 out of 10 in severity, associated with increasing redness, blistering and drainage, also associated with subjective fever,aggravated by even minimal touch or any movement and without relieving factors. He mentioned that the wound continued to drain over the past several days. In the emergency department, she was afebrile, blood pressure on arterial stable, pulse ox was maintained on room air. Routine blood work was remarkable for leukocytosis, sodium of 130, otherwise normal. Her blood sugar was 343. CT scan of the pelvis without contrast revealed extensive cellulitis of the inferior right buttock extending to the proximal medial thigh, perineum and right labia without abscess formation. She is going for surgery at this time and she will be admitted afterwards for acute right gluteal/right buttock cellulitis with suspected abscess, extending into the proximal right medial thigh, perineum and right labia. Past Medical History Past Medical History (Chronic Problems): Chronic Problems Asthma (Chronic) Type 2 diabetes mellitus (Chronic) Allergies clindamycin Allergy (Verified 04/22/19 18:04) Hives BURING AND ITCHING SKIN WITH HIVES Home Medications: Ambulatory Orders Medication Instructions Recorded Glipizide 10 mg PO DAILY #60 tab 08/23/18 Metformin HCl 1,000 mg PO BID #60 tab 08/23/18 Cephalexin [Keflex] 500 mg PO Q6 #40 cap 04/16/19 Insulin NPH Human Isophane 10 units SQ BID 04/16/19 [Novolin N] Smz/Tmp Ds [Bactrim Ds] 1 tab PO BID #14 tab 04/16/19 Surgical History: no surgical history Psychiatric History: No pertinent psych hx 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 Paternal History Items: Unknown - Patient is adopted. Review of Systems Constitutional: Reports: Fever. Denies: Anorexia, Chills, Weakness Eyes: Denies: Blurred vision, Double vision, Drainage, Redness HEENT: Denies: Difficulty Hearing, Ear Pain, Eye Pain, Nasal Congestion, Sore Throat Cardiovascular: Denies: Chest Pain, Chest Pressure, Chest Tightness, Edema, Heaviness, Palpitations, Syncope Respiratory: Denies: Cough, Hemoptysis, Pleuritic Pain, Shortness of Breath, Sputum production, Wheezing Gastrointestinal: Denies: Abdominal Pain, Constipation, Diarrhea, Nausea, Vomiting Genitourinary: Denies: Dysuria, Frequency, Hematuria Musculoskeletal: Reports: Leg Pain, Muscle pain. Denies: Arm Pain, Back Pain Skin: Denies: Dryness, Rash Neurological: Denies: Balance problems, Double vision, Change in Speech, Slurred speech, Confusion, Headaches, Incoordination, Numbness Psychiatric: Denies: Anxiety, Depression Endocrine: Denies: Change in Body Habitus, Polydipsia, Polyuria VTE Information - Inpt Only VTE Present on Admission: No VTE Mechan Device Prophylaxis: SCD's VTE Pharm Prophylaxis ordered?: No Patient Problems: Active and Suspected Problems Acute right gluteal cellulitis (Acute) - Physical Exam General: Alert, Oriented x3, Cooperative, - - She is in mild to moderate pain, anxious going for surgery. HEENT: Atraumatic, PERRLA, EOMI, Normocephalic Oral: Moist Mucosa, No Gingival or Mucosal Lesions/ Ulcerations Neck: Supple, No JVD, Negative Carotid Bruits, Trachea Midline, Thyroid Normal Size and Texture Lungs: Clear to auscultation, Normal air movement, No rhonchi, No wheeze, No rales, Diminished Cardiovascular: Regular rate, Regular Rhythm, Normal S1, Normal S2, PMI Normal Abdomen: Bowel Sounds Present, Soft, Non Tender, Non-Distended, No Hepato- splenomegaly, Obese Extremities: No clubbing, No cyanosis, No edema Skin: No rashes, Ulcer/ Wound, - - Right buttock/right posterior thigh: Diffuse erythema and edema with induration involving the right buttock area extending to the right posterior thigh with blistering of the skin, drainage and foul- smelling order. Lymphatic: No Cervical, Supraclavicular, or Inguinal Adenopathy Neurological: Cranial nerves II-XII grossly intact, Motor Exam 5/5 strength throughout Psych/Mental Status: Normal Affect, Appropriate, Alert and oriented to time, place, person, mood and affect Vital Signs Temp Pulse Resp BP Pulse Ox 99.0 F 95 18 121/80 H 97 04/22/19 20:04 04/22/19 20:04 04/22/19 20:04 04/22/19 20:04 04/22/19 20:04 Oxygen Delivery Method Room Air Weight: 206 lb 2.115 oz Body Mass Index (BMI) 33.3 Finger Stick Blood Glucose 311 Laboratory Tests Past 24 Hrs 04/22/19 04/22/19 04/22/19 18:17 18:17 18:17 WBC 19.0 H RBC 4.75 Hgb 14.3 Hct 40.8 MCV 85.9 MCH 30.1 MCHC 35.0 RDW 13.1 RDW Differential 41.3 Plt Count 319 MPV 12.1 H Immature Gran % (Auto) 1.600 H Neut % (Auto) 78.7 H Lymph % (Auto) 9.9 L [place] % (Auto) 8.8 Eos % (Auto) 0.7 Baso % (Auto) 0.3 Absolute Neuts (auto) 14.9 H Absolute Lymphs (auto) 1.88 Total Counted Not Reportable Differential Comment SCANNED Sodium 130 L Potassium 3.7 Chloride 98 Carbon Dioxide 25.0 Anion Gap 7 BUN 11 Creatinine 0.61 Estim Creat Clear Calc 118.21 Est GFR (MDRD) Af Amer 142 Est GFR (MDRD) Non-Af 117 BUN/Creatinine Ratio 18.1 Glucose 343 H Lactic Acid Calcium 9.1 Serum , Qual NEGATIVE 04/22/19 20:00 WBC RBC Hgb Hct MCV MCH MCHC RDW RDW Differential Plt Count MPV Immature Gran % (Auto) Neut % (Auto) Lymph % (Auto) [place] % (Auto) Eos % (Auto) Baso % (Auto) Absolute Neuts (auto) Absolute Lymphs (auto) Total Counted Differential Comment Sodium Potassium Chloride Carbon Dioxide Anion Gap BUN Creatinine Estim Creat Clear Calc Est GFR (MDRD) Af Amer Est GFR (MDRD) Non-Af BUN/Creatinine Ratio Glucose Lactic Acid Cancelled Calcium Serum , Qual POC Glucose 04/22/19 20:06 POC Glucose 303 H Clinical Impression(s) from Imaging Studies Pelvis CT 04/22/19 18:14 IMPRESSION: Extensive cellulitis of the inferior right buttock soft tissues extending into the proximal medial thigh, perineum and right labia. Without abscess. Associated with mild lymphadenopathy. Electronically Signed: Bryce Macedo MD at 19:27 EDT Tel , Service support , Assessment/Plan All Active Problems Acute right gluteal cellulitis (Acute) This is a 38 years old female patient presented to the emergency room because of worsening right buttock pain, redness and swelling with drainage and open wound, found to have acute right gluteal/right posterior thigh extensive cellulitis with possible abscess with failure of outpatient treatment and she is going for surgery at this time. #1 acute extensive right gluteal/right posterior and medial thigh cellulitis/probable abscess: Patient was on Bactrim and Keflex for several days, no improvement. Her vital signs are stable, no sepsis or severe sepsis. She is going for surgery at this time. Plan: Admit to PCU, keep on n.p.o., IV fluids, blood culture, urine culture, MRSA wound screen, start IV Zosyn and IV cefazolin, general surgery consult, IV morphine PRN, IV antiemetics, Tylenol as needed, repeat CBC and BMP tomorrow morning, PT OT evaluation and treatment. #2 uncontrolled type 2 diabetes mellitus: Patient mentioned that his sugar has been in the 300s always. Plan: N.p.o. for now, IV fluids, insulin sliding scale, Lantus 10 units subcu twice daily, check hemoglobin A1c, Accu-Cheks every 6 hours. #3 asthma: Clinically stable, pulse ox is maintained on room air. Plan for albuterol as needed. #4 DVT prophylaxis: SCDs. This note was generated with CoScaleation software. It may contain incorrect words, spelling, and punctuation that were not noted in checking the note before signing. Code Visit Inpatient E&M: 52059 Init Hosp L3
--- NOTE | 2019-04-22 22:47 | OP.PCM_ITS ---
Report of Operation Date of Procedure: 04/22/19 Pre-Operative Diagnosis: necrotizing fasciitis - right perineal/buttock Post-Operative Diagnosis: necrotizing fasciitis - likely from right bartholins abscess Surgery/Procedure Performed:: debridment of necrotizing fasciitis - right buttock, perineum, labia, thigh dancing instructor: Jennifer Moreno Type of Anesthesia:: General Anesthesiologist: Earline Troy - [id number] Specimen's removed: TISSUE FOR PATH AND CULTURE Estimated Blood Loss (mL): 150 Fluids Replaced: 1000 Description of Procedure: The patient was brought to the operating suite. Sign in was performed verifying patient, site, procedure, position, and DVT prophylaxis with SCDs. Patient received Zosyn for antibiotic treatment for a known infection Following induction of general anesthetic. The patient was transferred to supine position to the prone jackknife position with care being taken to avoid pressure points. The patient?s perineal area was then prepped and draped in the usual fashion. Timeout was performed verifying patient, site, procedure, and position. External examination demonstrated a swollenindurated area of skin extending rather laterally on her right gluteal area and along the right vagina labial area extending into the inner right thigh. There were 3 open sites draining reddish brown purulent material just lateral to the posterior fornix and lateral to the vagina opening consistent with origin of a Bartholin's gland abscess. The tissue was somewhat spongy and crepitant feeling. 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 Wide debridement up to about two thirds the width of the buttock was performed due to significant undermining and advancement of the necrotizing fasciitis area. Debridement was taken down to the gluteal muscles. Dissection was then carried along the right labial area and extended into the inner medial right thigh. All necrotic material that was visualized was debrided. There was noted to be deep tracking along the right lateral aspect of the vagina of necrotic tissue but this did not seem to track in the retrorectal plane. After all debridement was performed there was one bleeding site on the medial tract which was controlled with 3-0 Vicryl suture. The remaining controlled with electrocautery. The site was packed with Betadine soaked gauze and dressing applied. The patient was returned to the supine position. There was an anterior area of blistering on the anterior labia. This was opened and dissected again yielding a degree of necrotizing tissue until healthy tissue was encountered. This was packed with Betadine soaked gauze. Dressing was held in place with mesh pants. The patient was extubated and brought to recovery in stable condition. - Admit VTE Documentation VTE Present on Admission: No VTE Mechan Device Prophylaxis: SCD's
[2019-04-22 23:11] LABS: Bedside Glucose 320 mg/dL (70-110)
--- NOTE | 2019-04-22 23:58 | PCM.RX.CS ---
Consult Pharmacy has been consulted to manage selected antiobiotic: Vancomycin Type of Consult: New start Suspected Infection: Skin/Soft tissue Prior Doses of Antibiotics Received/Current Regimen: Medications Vancomycin HCl 1,500 mg/ (Sodium Chloride) 530 mls @ 250 mls/hr IV Q12H GLORIA Discontinued Medications Vancomycin HCl 1,500 mg/ (Sodium Chloride) 530 mls @ 250 mls/hr IV X1 ONE Stop: 04/22/19 21:52 Last Admin: 04/22/19 21:24 Dose: 250 mls/hr Labs: Sodium 130 mmol/L (136-145) L 04/22/19 18:17 Potassium 3.7 mmol/L (3.5-5.1) 04/22/19 18:17 Chloride 98 mmol/L (98-107) 04/22/19 18:17 Carbon Dioxide 25.0 mmol/L (21.0-32.0) 04/22/19 18:17 7 (5-15) 04/22/19 18:17 BUN 11 mg/dL (7-18) 04/22/19 18:17 0.61 mg/dL (0.55-1.02) 04/22/19 18:17 Est GFR (MDRD) Af Amer 142 mL/min (>60) 04/22/19 18:17 Est GFR (MDRD) Non-Af 117 mL/min (>60) 04/22/19 18:17 18.1 RATIO (10-20) 04/22/19 18:17 Glucose 343 mg/dL (74-106) H 04/22/19 18:17 Weight used for dosin.5 kg Estimated Creatinine Clearance: 118 Goal Trough: 10-15 mcg/mL Pharmacy Plan for Drug Dosing: Pharmacy Service will continue to monitor and adjust dosing as required. Follow-Up Labs: Trough Vancomycin Labs to be done on [date and time ordered]: 04/24/19 @0900
[2019-04-23] VITALS (7 sets, daily range): BP systolic 119–136; BP diastolic 55–81; PULSE 87–95; RESP 16–18; TEMP 37.1–38.1; O2SAT 94–97
[2019-04-23] MEDS: Insulin Lispro 100 UNIT/ML INSULN.PEN SC ×5 (00:26→22:46)
[2019-04-23] MEDS: 0.9% Normal Saline 1,000 ML 100 ML IV ×2 (00:35→14:38)
[2019-04-23 00:36] LABS: Bedside Glucose 379 mg/dL (70-110)
[2019-04-23 00:53] LABS: M R Staph aureus DNA By PCR Negative (Negative); Probe Check PASS; Specimen Processing Control PASS; Staph aureus DNA By PCR NEGATIVE (Negative)
[2019-04-23 01:39] LABS: Hemoglobin A1c 11.6 % (4.2-6.3)
[2019-04-23 06:24] LABS: Absolute Lymphocyte Count 1.77 X10^3/ul (0.83-4.51); Absolute Neutrophil Count 14.7 X10^3/uL (2.0-7.7); Anion Gap 5 (5-15); BUN 11 mg/dL (7-18); BUN/Creat Ratio 22.5 RATIO (10-20); Basophil# 0.06 X10^3/uL; Basophil% 0.3 % (0-1); Calcium,Total 8.5 mg/dL (8.5-10.1); Chloride 104 mmol/L (98-107); Creatinine, Serum 0.49 mg/dL (0.55-1.02); EST Glomerular Filtration Rate 151 mL/min (>60); Eosinophil# 0.13 X10^3/uL; Eosinophils% 0.7 % (0-5); Est Glom Filt Rate - Afr Amer 183 mL/min (>60); Estimated Creatinine Clearance 147.16 ml/min; Glucose 304 mg/dL (74-106); Hematocrit 37.3 % (37-47); Hemoglobin 12.5 g/dl (12.0-15.0); Lymphocyte # 1.77 X10^3/ul (4.0); Lymphocyte % 9.5 % (19-41); Mean Corp Hgb Conc 33.5 g/gl (32-36); Mean Corpuscular Hgb 29.1 pg (27.0-32.0); Mean Corpuscular Volume 86.7 fL (81-99); Monocyte% 9.1 % (0-10); Neutrophil # 14.73 X10^3/uL (2.7-7.7); Neutrophil % 78.6 % (47-70); Platelet Count 288 K/mm3 (150-450); Potassium 4.1 mmol/L (3.5-5.1); RBC Distribution Width CV 13.3 % (11.6-14.6); RBC Distribution Width SD 41.1 fl (35.1-43.9); Sodium Level 134 mmol/L (136-145); White Blood Count 18.7 K/mm3 (4.4-11.0)
[2019-04-23 07:02] LABS: POSITIVE COUNT NO; POSITIVE MORPHOLOGY NO
[2019-04-23 07:04] LABS: Differential Indicated SCAN CRITERIA MET; POSITIVE DIFFERENTIAL YES
--- NOTE | 2019-04-23 07:16 | PCM.PROGNOTE ---
Patient Problems: Active and Suspected Problems Acute right gluteal cellulitis (Acute) Subjective: The patient is a 38-year-old female with a past medical history of asthma, diabetes mellitus type 2, obesity who presented to the emergency room complaining of worsening pain and drainage from a right buttock infection. She had previously been seen in the emergency room 9 days prior and was placed on Bactrim and Keflex. A CT scan of the pelvis without contrast showed extensive cellulitis of the inferior right buttock extending to the proximal medial thigh, perineum and right labia without abscess formation. Zosyn and vancomycin were administered in the emergency department. She was taken to surgery by Dr. Huynh for debridement of necrotizing fasciitis of the right buttock, perineum, labia and thigh. Afebrile, vital signs stable Pulse ox is 94 to 96% on 3 L nasal cannula. White blood cell count today is 18.7 with 79% neutrophils and 1.8% immature granulocytes. Sodium has improved and is 134 today, up from 130 yesterday. Creatinine is stable and is 0.49. Hemoglobin A1c is 11.6. Blood sugars are not adequately controlled PCR for staph aureus and MRSA are negative. Blood cultures and wound cultures are pending. she tells me that she has depression and Borderline personality disorder. She has never had surgery before. She has not seen her primary care physician and probably 6 months and she checks her blood sugars at home but states they are always high. She denies nausea. Her main complaint today is pain. she has called her mother and her (who is on house arrest) to come be with her for support. Denies any illicit drug use. Objective: PHYSICAL EXAM: GENERAL: alert, oriented X 3, semi-Cooperative, she is anxious and afraid ORAL: dry mucosa, she has thrush NECK: No JVD, supple, trachea midline LUNGS: CTA, symmetric chest expansion HEART: RRR, Normal S1 and S2, no rub, no gallop ABDOMEN: soft, NT, ND, BS present, no guarding with palpation EXTREMITIES: no edema, no cyanosis, no calf tenderness SKIN: there is extensive debridement of the R buttock in the ischial area and this extends into the R labia and the upper R thigh, no odor with the dressing change, no purulent DC observed, the wound base is red with no necrotic tissue observed. NEUROLOGIC: no focal neurologic deficits PSYCH: histrionic, yelling, cursing....but ultimately with a lot of verbal support was able to have the dressing changed. - Physical Exam Vital Signs Temp Pulse Resp BP Pulse Ox 98.8 F 93 18 121/73 H 95 04/23/19 05:00 04/23/19 05:00 04/23/19 05:00 04/23/19 05:00 04/23/19 05:00 Oxygen Flow Rate (L/min) 3 Oxygen Delivery Method Nasal Cannula Weight: 206 lb 2.115 oz Body Mass Index (BMI) 33.3 Finger Stick Blood Glucose 320 Intake and Output for Last 24 Hours 04/21/19 04/22/19 04/23/19 23:59 23:59 23:59 Intake Total 1000 / 1000 916 / 916 Output Total 425 / 425 350 / 350 Balance 575 / 575 566 / 566 Laboratory Tests Past 24 Hrs 04/22/19 04/22/19 04/22/19 18:17 18:17 18:17 WBC 19.0 H RBC 4.75 Hgb 14.3 Hct 40.8 MCV 85.9 MCH 30.1 MCHC 35.0 RDW 13.1 RDW Differential 41.3 Plt Count 319 MPV 12.1 H Immature Gran % (Auto) 1.600 H Neut % (Auto) 78.7 H Lymph % (Auto) 9.9 L [place] % (Auto) 8.8 Eos % (Auto) 0.7 Baso % (Auto) 0.3 Absolute Neuts (auto) 14.9 H Absolute Lymphs (auto) 1.88 Total Counted Not Reportable Differential Comment SCANNED Sodium 130 L Potassium 3.7 Chloride 98 Carbon Dioxide 25.0 Anion Gap 7 BUN 11 Creatinine 0.61 Estim Creat Clear Calc 118.21 Est GFR (MDRD) Af Amer 142 Est GFR (MDRD) Non-Af 117 BUN/Creatinine Ratio 18.1 Glucose 343 H Hemoglobin A1c Lactic Acid Calcium 9.1 Serum , Qual NEGATIVE S.aureus Protein A PCR MRSA (PCR) 04/22/19 04/22/19 04/22/19 18:17 20:00 22:58 WBC RBC Hgb Hct MCV MCH MCHC RDW RDW Differential Plt Count MPV Immature Gran % (Auto) Neut % (Auto) Lymph % (Auto) [place] % (Auto) Eos % (Auto) Baso % (Auto) Absolute Neuts (auto) Absolute Lymphs (auto) Total Counted Differential Comment Sodium Potassium Chloride Carbon Dioxide Anion Gap BUN Creatinine Estim Creat Clear Calc Est GFR (MDRD) Af Amer Est GFR (MDRD) Non-Af BUN/Creatinine Ratio Glucose Hemoglobin A1c 11.6 H Lactic Acid Cancelled Calcium Serum , Qual S.aureus Protein A PCR NEGATIVE MRSA (PCR) Negative 04/23/19 04/23/19 05:32 05:32 WBC 18.7 H RBC 4.30 Hgb 12.5 Hct 37.3 MCV 86.7 MCH 29.1 MCHC 33.5 RDW 13.3 RDW Differential 41.1 Plt Count 288 MPV 12.0 Immature Gran % (Auto) 1.800 H Neut % (Auto) 78.6 H Lymph % (Auto) 9.5 L [place] % (Auto) 9.1 Eos % (Auto) 0.7 Baso % (Auto) 0.3 Absolute Neuts (auto) 14.7 H Absolute Lymphs (auto) 1.77 Total Counted Not Reportable Differential Comment Sodium 134 L Potassium 4.1 Chloride 104 Carbon Dioxide 25.0 Anion Gap 5 BUN 11 Creatinine 0.49 L Estim Creat Clear Calc 147.16 Est GFR (MDRD) Af Amer 183 Est GFR (MDRD) Non-Af 151 BUN/Creatinine Ratio 22.5 H Glucose 304 H Hemoglobin A1c Lactic Acid Calcium 8.5 Serum , Qual S.aureus Protein A PCR MRSA (PCR) POC Glucose 04/23/19 04/22/19 04/22/19 00:24 23:05 20:06 POC Glucose 379 H 320 H 303 H Medical Necessity - Tobacco Use Smoking Status: Current every day smoker Tobacco Use: Cigarettes Assessment/Plan All Active Problems Acute right gluteal cellulitis (Acute) Impressions 1. necrotizing fasciitis of the R buttock, thigh, labia and perineum in and uncontrolled diabetic 2. DM II - uncontrolled 3. borderline personality disorder 4. THrush 5. Asthma 6. Morbid obesity 7. Acute respiratory insufficiency with hypoxemia - possible left base infiltrate on CXR Consult Dr. House from infectious disease..... Continue Zosyn and Vacno for now but, will defer to Dr. House's opinion on appropriate antibiotics MS 6 mg prior to dressing change and IV Ativan Add scheduled mealtime insulin and increase the SSI to high Currently NPO until Dr. Parker decides if she will need to go back to surgery today....if not will start 18 dejon carb controlled diet. Consult the pediatric dermatologist Start Matthew BID, Zinc and vitamin C she refused the CXR Due to borderline personality disorder care will be complicated......she refuses things and is not especially cooperative. Code Visit Inpatient E&M: 99007 Subs Hosp L3
--- NOTE | 2019-04-23 07:41 | RAD_ITS ---
STUDY: X-RAY CHEST REASON FOR EXAM: Female, 38 years old. Hypoxia TECHNIQUE: AP portable semierect chest. COMPARISON: Chest x-ray 11/11/2017, CT chest 11/24/2017 FINDINGS: Bandlike airspace opacities in the left lower lobe may be atelectatic or developing infiltrate. Projecting over the left hilum, circumscribed lucency measuring approximate 5 7 x 4.4 cm, airspace of uncertain significance. No similar structure was seen on prior CT chest. Left upper lung clear. Right lung clear. No cardiomegaly. No apparent aortomegaly. No acute osseous or upper abdominal process. RAD/Chest 1 View (Portable) IMPRESSION: Lucent airspace projecting over the left hilum of uncertain significance. Bandlike opacities left lung base which may reflect infiltrate, scar or atelectasis. CT chest recommended. Electronically Signed: Bryce Macedo MD at 12:02 EDT Tel , Service support ,
[2019-04-23 08:10] LABS: AST(SGOT) 10 U/L (15-37); Alanine Aminotransfer ALT/SGPT 13 U/L (13-56); Albumin, Serum 1.8 g/dL (3.2-5.0); Alkaline Phosphatase 153 U/L (45-117); Bilirubin, Direct 0.09 mg/dL (0.00-0.30); Cholesterol 124 mg/dL (200); Globulin 4.7 g/dL (2.2-4.2); High Density Lipoprotein 16 mg/dL; Magnesium 1.8 mg/dL (1.6-2.6); Phosphorus 3.1 mg/dL (2.5-4.9); Protein, Total 6.5 g/dL (6.4-8.2); Triglycerides 181 mg/dL; Very Low Density Lipoprotein 36 mg/dL (5-40)
[2019-04-23] MEDS: Morphine 2 MG/ML Syringe IV ×2 (08:33→14:35)
[2019-04-23] MEDS: 0.9% NaCl Peripheral Flush Adult/Peds IV ×2 (09:09→10:35)
[2019-04-23] MEDS: Morphine 4 MG/ML Syringe IV (09:09)
--- NOTE | 2019-04-23 10:03 | NEWVISION ---
wound photo: right gluteal/perineal area
--- NOTE | 2019-04-23 10:04 | NURSING ---
wound photo: right gluteal/perineal area
--- NOTE | 2019-04-23 10:05 | NURSING ---
wound photo: right labia
--- NOTE | 2019-04-23 10:06 | CON.PCM_ITS ---
Reason for Consult: Necrotizing soft tissue infection in the perineum Consulted by: Dr. Dumont History of Present Illness: The patient is a 38 year old F [] This is a 38-year-old white female with past medical history poorly controlled diabetes mellitus who was initially seen in the emergency department last Tuesday, 16 April because of a developing boil in her perineum. Patient was evaluated and sent home on oral antibiotics in the form of Keflex plus Bactrim. Over the course of the week the boil started draining she developed increasing erythema and pain in the perineum area and right buttocks. Patient was reevaluated in the emergency room and was subsequent admitted yesterday. She was taken to surgery for surgical debridement of a necrotizing skin and soft tissue infection on the right buttocks and perineal area. Operative note from Dr. Huynh reviewed. Intraoperative cultures are pending from last night. Currently is alert and responsive. No cardiopulmonary distress no gastrointestinal symptoms. On parenteral antimicrobial therapy and form vancomycin plus Zosyn. - Medical History Past Medical History (Chronic Problems): Chronic Problems Asthma (Chronic) Type 2 diabetes mellitus (Chronic) Allergies/Adverse Reactions: Allergies clindamycin Allergy (Verified 04/22/19 18:04) Hives BURING AND ITCHING SKIN WITH HIVES Home Medications: Ambulatory Orders Medication Instructions Recorded Glipizide 10 mg PO DAILY #60 tab 08/23/18 Metformin HCl 1,000 mg PO BID #60 tab 08/23/18 Cephalexin [Keflex] 500 mg PO Q6 #40 cap 04/16/19 Insulin NPH Human Isophane 10 units SQ BID 04/16/19 [Novolin N] Smz/Tmp Ds [Bactrim Ds] 1 tab PO BID #14 tab 04/16/19 Vital Signs Temp Pulse Resp BP Pulse Ox 98.8 F 93 18 121/73 H 95 04/23/19 05:00 04/23/19 05:00 04/23/19 05:00 04/23/19 05:00 04/23/19 05:00 Oxygen Flow Rate (L/min) 3 Oxygen Delivery Method Nasal Cannula Weight: 93.5 kg Body Mass Index (BMI) 33.3 Finger Stick Blood Glucose 320 Laboratory Tests Past 24 Hrs 04/22/19 04/22/19 04/22/19 18:17 18:17 18:17 WBC 19.0 H RBC 4.75 Hgb 14.3 Hct 40.8 MCV 85.9 MCH 30.1 MCHC 35.0 RDW 13.1 RDW Differential 41.3 Plt Count 319 MPV 12.1 H Immature Gran % (Auto) 1.600 H Neut % (Auto) 78.7 H Lymph % (Auto) 9.[address] [place] % (Auto) 8.8 Eos % (Auto) 0.7 Baso % (Auto) 0.3 Absolute Neuts (auto) 14.9 H Absolute Lymphs (auto) 1.88 Total Counted Not Reportable Differential Comment SCANNED Diff Path Review Sodium 130 L Potassium 3.7 Chloride 98 Carbon Dioxide 25.0 Anion Gap 7 BUN 11 Creatinine 0.61 Estim Creat Clear Calc 118.21 Est GFR (MDRD) Af Amer 142 Est GFR (MDRD) Non-Af 117 BUN/Creatinine Ratio 18.1 Glucose 343 H Hemoglobin A1c Lactic Acid Calcium 9.1 Phosphorus Magnesium Total Bilirubin Direct Bilirubin AST ALT Alkaline Phosphatase Total Protein Albumin Globulin Triglycerides Cholesterol LDL Cholesterol VLDL Cholesterol HDL Cholesterol Serum , Qual NEGATIVE S.aureus Protein A PCR MRSA (PCR) 04/22/19 04/22/19 04/22/19 18:17 20:00 22:58 WBC RBC Hgb Hct MCV MCH MCHC RDW RDW Differential Plt Count MPV Immature Gran % (Auto) Neut % (Auto) Lymph % (Auto) [place] % (Auto) Eos % (Auto) Baso % (Auto) Absolute Neuts (auto) Absolute Lymphs (auto) Total Counted Differential Comment Diff Path Review Sodium Potassium Chloride Carbon Dioxide Anion Gap BUN Creatinine Estim Creat Clear Calc Est GFR (MDRD) Af Amer Est GFR (MDRD) Non-Af BUN/Creatinine Ratio Glucose Hemoglobin A1c 11.6 H Lactic Acid Cancelled Calcium Phosphorus Magnesium Total Bilirubin Direct Bilirubin AST ALT Alkaline Phosphatase Total Protein Albumin Globulin Triglycerides Cholesterol LDL Cholesterol VLDL Cholesterol HDL Cholesterol Serum , Qual S.aureus Protein A PCR NEGATIVE MRSA (PCR) Negative 04/23/19 04/23/19 04/23/19 05:32 05:32 05:32 WBC 18.7 H RBC 4.30 Hgb 12.5 Hct 37.3 MCV 86.7 MCH 29.1 MCHC 33.5 RDW 13.3 RDW Differential 41.1 Plt Count 288 MPV 12.0 Immature Gran % (Auto) 1.800 H Neut % (Auto) 78.6 H Lymph % (Auto) 9.[address] [place] % (Auto) 9.1 Eos % (Auto) 0.7 Baso % (Auto) 0.3 Absolute Neuts (auto) 14.7 H Absolute Lymphs (auto) 1.77 Total Counted Not Reportable Differential Comment COMMENT Diff Path Review May foll Sodium 134 L Potassium 4.1 Chloride 104 Carbon Dioxide 25.0 Anion Gap 5 BUN 11 Creatinine 0.49 L Estim Creat Clear Calc 147.16 Est GFR (MDRD) Af Amer 183 Est GFR (MDRD) Non-Af 151 BUN/Creatinine Ratio 22.5 H Glucose 304 H Hemoglobin A1c Lactic Acid Calcium 8.5 Phosphorus 3.1 Magnesium 1.8 Total Bilirubin 0.30 Direct Bilirubin 0.09 AST 10 L ALT 13 Alkaline Phosphatase 153 H Total Protein 6.5 Albumin 1.8 L Globulin 4.7 H Triglycerides 181 Cholesterol 124 LDL Cholesterol 72 VLDL Cholesterol 36 HDL Cholesterol 16 L Serum , Qual S.aureus Protein A PCR MRSA (PCR) - Other Studies Radiology: [] Other Studies: [] Route of nutrition/ use of supplements: [] Nutritional Intake: [] IV Site: [] Esparza Catheter: [] Alert and oriented does not appear toxic oral mucosa dry lungs are clear heart exam S1-S2 abdomen soft no focal tenderness. Postop dressings are in place in the right buttocks and perineal area. - Assessment/Plan Antibiotics: [] Assessment/Plan: [] Active and Suspected Problems Acute right gluteal cellulitis (Acute) Necrotizing soft tissue infection of the perineum as well as right buttocks in a diabetic host. At this point we will continue empiric antibiotics in the form of vancomycin plus Zosyn and follow closely. Also closely follow the microbiological data.
[2019-04-23] MEDS: NYSTATIN 500,000 UNIT/5 ML UDC 500000 UNIT PO ×4 (10:12→21:09)
--- NOTE | 2019-04-23 10:35 | CASEMGMT ---
RN CM Assessment Presentation: Necrotizing soft tissue infection perineum/buttocks. I/D, IV antibiotics, wound care. Intro role of CM and purpose of RN CM assessment to patient. She is presently calm and able to participate, however physician said pt had outburst during dressing changes. Hx of depression and borderline personality disorder. Demographics, PCP and Pharmacy verified. Discussed LTAC as recommended discharge level of care. Explained purpose of LTAC related to pt's condition and locations of [facility] and [place]. Pt has concerns that her is on house arrest and will not be able to visit. Also has concerns that she may lose her job with lengthy recovery. RN CM let pt know SW could speak with her tomorrow re: home and financial situations re: her likely long recovery. Pt states she would like to speak with SW tomorrow. May need to return to surgery today. Emotional support given, questions answered. PCP: Yusra Podlogar, [employer] OPERATOR Specialists: Dr. Huynh, surgcornelius, Dr. Alvarez, ID Preferred Pharmacy: [facility] Michael Insurance: MMO Prescription Benefit: yes LNOK: , Chauncey Rojo Living Arrangements: Lives in mobile home, 3 steps into home with her . Prior to admission, pt was independent. Transportation: drives DME: none HHC: none SW referral: Pt with mental health issues, financial issues surrounding long recovery needed. Patient DC goals: unknown DC PLAN: Per physician- LTAC is recommended level of care on dc. Helen JARAMILLO RN ACM
[2019-04-23 12:26] LABS: Bedside Glucose 259 mg/dL (70-110)
--- NOTE | 2019-04-23 12:46 | PN.SURG_ITS ---
Patient Problems: Active and Suspected Problems Acute right gluteal cellulitis (Acute) Subjective: very thirsty, refuses to move to examine wound due to thirst and discomfort - Physical Exam General: Alert, Oriented x3 Lungs: Normal air movement, - - decreased bases Cardiovascular: Regular rate, No murmurs Abdomen: Bowel Sounds Present, Soft Skin: - - dressing in place, declined allowing me to examine area Vital Signs Temp Pulse Resp BP Pulse Ox 98.9 F 87 18 120/66 94 04/23/19 10:00 04/23/19 10:00 04/23/19 10:00 04/23/19 10:00 04/23/19 10:00 Oxygen Flow Rate (L/min) 3 Oxygen Delivery Method Nasal Cannula Weight: 93.5 kg Body Mass Index (BMI) 33.3 Finger Stick Blood Glucose 320 Intake and Output for Last 24 Hours 04/21/19 04/22/19 04/23/19 23:59 23:59 23:59 Intake Total 1000 / 1000 2354 / 2354 Output Total 425 / 425 700 / 700 Balance 575 / 575 1654 / 1654 Microbiology Past 72 Hours 04/22/19 22:58 Gram Stain - Final Wound Abcess - Aerobic & Anaerobic Swabs 04/22/19 22:58 Gram Stain - Final Aspirate - Buttock Laboratory Tests Past 24 Hrs 04/22/19 04/22/19 04/22/19 18:17 18:17 18:17 WBC 19.0 H RBC 4.75 Hgb 14.3 Hct 40.8 MCV 85.9 MCH 30.1 MCHC 35.0 RDW 13.1 RDW Differential 41.3 Plt Count 319 MPV 12.1 H Immature Gran % (Auto) 1.600 H Neut % (Auto) 78.7 H Lymph % (Auto) 9.9 L [place] % (Auto) 8.8 Eos % (Auto) 0.7 Baso % (Auto) 0.3 Absolute Neuts (auto) 14.9 H Absolute Lymphs (auto) 1.88 Total Counted Not Reportable Differential Comment SCANNED Diff Path Review Sodium 130 L Potassium 3.7 Chloride 98 Carbon Dioxide 25.0 Anion Gap 7 BUN 11 Creatinine 0.61 Estim Creat Clear Calc 118.21 Est GFR (MDRD) Af Amer 142 Est GFR (MDRD) Non-Af 117 BUN/Creatinine Ratio 18.1 Glucose 343 H Hemoglobin A1c Lactic Acid Calcium 9.1 Phosphorus Magnesium Total Bilirubin Direct Bilirubin AST ALT Alkaline Phosphatase Total Protein Albumin Globulin Triglycerides Cholesterol LDL Cholesterol VLDL Cholesterol HDL Cholesterol Serum , Qual NEGATIVE S.aureus Protein A PCR MRSA (PCR) 04/22/19 04/22/19 04/22/19 18:17 20:00 22:58 WBC RBC Hgb Hct MCV MCH MCHC RDW RDW Differential Plt Count MPV Immature Gran % (Auto) Neut % (Auto) Lymph % (Auto) [place] % (Auto) Eos % (Auto) Baso % (Auto) Absolute Neuts (auto) Absolute Lymphs (auto) Total Counted Differential Comment Diff Path Review Sodium Potassium Chloride Carbon Dioxide Anion Gap BUN Creatinine Estim Creat Clear Calc Est GFR (MDRD) Af Amer Est GFR (MDRD) Non-Af BUN/Creatinine Ratio Glucose Hemoglobin A1c 11.6 H Lactic Acid Cancelled Calcium Phosphorus Magnesium Total Bilirubin Direct Bilirubin AST ALT Alkaline Phosphatase Total Protein Albumin Globulin Triglycerides Cholesterol LDL Cholesterol VLDL Cholesterol HDL Cholesterol Serum , Qual S.aureus Protein A PCR NEGATIVE MRSA (PCR) Negative 04/23/19 04/23/19 04/23/19 05:32 05:32 05:32 WBC 18.7 H RBC 4.30 Hgb 12.5 Hct 37.3 MCV 86.7 MCH 29.1 MCHC 33.5 RDW 13.3 RDW Differential 41.1 Plt Count 288 MPV 12.0 Immature Gran % (Auto) 1.800 H Neut % (Auto) 78.6 H Lymph % (Auto) 9.5 L [place] % (Auto) 9.1 Eos % (Auto) 0.7 Baso % (Auto) 0.3 Absolute Neuts (auto) 14.7 H Absolute Lymphs (auto) 1.77 Total Counted Not Reportable Differential Comment COMMENT Diff Path Review May foll Sodium 134 L Potassium 4.1 Chloride 104 Carbon Dioxide 25.0 Anion Gap 5 BUN 11 Creatinine 0.49 L Estim Creat Clear Calc 147.16 Est GFR (MDRD) Af Amer 183 Est GFR (MDRD) Non-Af 151 BUN/Creatinine Ratio 22.5 H Glucose 304 H Hemoglobin A1c Lactic Acid Calcium 8.5 Phosphorus 3.1 Magnesium 1.8 Total Bilirubin 0.30 Direct Bilirubin 0.09 AST 10 L ALT 13 Alkaline Phosphatase 153 H Total Protein 6.5 Albumin 1.8 L Globulin 4.7 H Triglycerides 181 Cholesterol 124 LDL Cholesterol 72 VLDL Cholesterol 36 HDL Cholesterol 16 L Serum , Qual S.aureus Protein A PCR MRSA (PCR) POC Glucose 04/23/19 04/23/19 04/22/19 12:13 00:24 23:05 POC Glucose 259 H 379 H 320 H 04/22/19 20:06 POC Glucose 303 H Medical Necessity - Tobacco Use Smoking Status: Current every day smoker Tobacco Use: Cigarettes Assessment/Plan All Active Problems Acute right gluteal cellulitis (Acute) POD #1 s/p wide debridement for necrotizing fasciitis from right bouttock/right labia and inner thigh I performed OR exploration wide debridement. Discussed finding with Dr. Parker and consulted him for continued wound evaluation/debridement. anticipate need for additional OR evaluation/debridement. patient unhappy about prospect of needing additional procedures. we'll plan for broad-spectrum antibiotics-Zosyn and vancomycin. ID consult noted. await cultures Patient's blood glucoses will be monitored and she will placed on a sliding scale. Patient with oral thursh - will start nystatin QID I will consult hospitalist service for assistance in her management. If this is necrotizing fasciitis is anticipated we will consult plastic surgery for further debridement/management/wound care postoperatively
--- NOTE | 2019-04-23 15:18 | CASEMGMT ---
Social Work Note SW received referral from RN LEONID Crenshaw for MH and financial. SW will follow up with pt tomorrow. Azalia Veronica MED SPEC, MUTUAL FUND ANALYST
[2019-04-23 16:25] LABS: Bedside Glucose 186 mg/dL (70-110)
[2019-04-23] MEDS: Ascorbic Acid 500 MG Tablet PO (17:28)
[2019-04-23] MEDS: Glucerna Shake 120 ML LIQUID PO ×2 (17:33→21:13)
[2019-04-23] MEDS: morphine 10 MG/ML Syringe 6 MG IV (19:02)
[2019-04-23] MEDS: LORazepam 2 MG/ML Syringe 1 MG IV (19:02)
[2019-04-23] MEDS: Senna/Docusate Sodium 1 Tablet 2 TABLET PO (21:09)
--- NOTE | 2019-04-23 21:19 | CON.PCM_ITS ---
Reason for Consult Date of Consultation: 04/23/19 Reason for Consultation: Recent open surgical necrotizing diabetic infection right gluteal area extending to perineal, vulval, and thigh areas. REFERRING PHYSICIAN: Dr. Huynh. CRIMINAL INVESTIGATIVE AGENT: Dr. Parker. History of Present Illness: The patient is a 38 year old F with a history of poorly controlled diabetes mellitus who presented with a 9 day history of a right buttock/perineal abscess. She went to the ED and was started on Bactrim and Keflex. The area worsened with increasing purulent drainage, pain, swelling, and redness. She presented to the ER. WBC count 19,000, blood glucose>300. CT scan of the pelvis was obtained. There was noted to have diffuse severe edema throughout the inferior aspect of the right gluteal soft tissue areas involving the saphenous fat extending the proximal medial thigh with associated skin thickening and edema extending the right labia. There was edema extending up regarding the right inguinal canal without blood was listed as defined abscess. She was urgently taken to surgery on 04/22/[address] Huynh where she underwent debridement of necrotizing fasciitis - right buttock, perineum, labia, thigh. She is currently on Vancomycin and Zosyn. I was asked to evaluate this patient for complex wound care to be continued after discharge at the [facility] and for surgical options for wound closure in the future with skin grafting and to evaluate closely for any progression of the infection for additional operative debridement. WBC today has improved slightly to 18.7. Her HgbA1c was 11.6. Past Medical History Past Medical History (Chronic Problems): Chronic Problems Smoker (Chronic) Asthma (Chronic) Type 2 diabetes mellitus (Chronic) Allergies clindamycin Allergy (Verified 04/22/19 18:04) Hives BURING AND ITCHING SKIN WITH HIVES Current Medications Acetaminophen (Tylenol) 650 mg PO Q6H PRN PRN PRN Reason: Mild Pain (1-3)/Temp > 100.7 F Albuterol Sulfate (Ventolin Aerosols) 2.5 mg INHALATION Q4H PRN PRN PRN Reason: Shortness of Breath/Wheezing Ascorbic Acid (Vitamin C) 500 mg PO BIDCM [facility] Last Admin: 04/23/19 17:28 Dose: 500 mg Documented by: Dextrose (D50w Syringe) 0 gm IV X1 PRN; Protocol PRN Reason: Hypoglycemia Glucagon () 1 mg IM .X1 PRN PRN Reason: Hypoglycemia Sodium Chloride () 1,000 mls @ 100 mls/hr IV .Q10H [facility] Last Admin: 04/23/19 14:38 Dose: 100 mls/hr Documented by: Piperacillin Sod/Tazobactam (Sod 3.375 gm/ Sodium Chloride) 50 mls @ 12.5 mls/hr IV Q8 [facility] Last Admin: 04/23/19 21:13 Dose: 12.5 mls/hr Documented by: Vancomycin HCl 750 mg/ Sodium (Chloride) 265 mls @ 250 mls/hr IV PRN PRN Vancomycin HCl 1,500 mg/ (Sodium Chloride) 530 mls @ 250 mls/hr IV Q12H [facility] Last Admin: 04/23/19 21:09 Dose: 250 mls/hr Documented by: Insulin Glargine (Lantus ([facility])) 20 units SC BID [facility] Last Admin: 04/23/19 12:14 Dose: 20 units Documented by: Insulin Human Lispro (Humalog Kwikpen ([facility])) 0 unit SC Q6 [facility]; Protocol Last Admin: 04/23/19 17:29 Dose: 3 units Documented by: Lorazepam (Ativan) 1 mg IV UD [facility] Last Admin: 04/23/19 19:02 Dose: 1 mg Documented by: Magnesium Hydroxide (Milk Of Magnesia) 30 ml PO DAILY PRN PRN PRN Reason: Constipation Morphine Sulfate () 2 mg IV Q3H PRN PRN PRN Reason: Severe pain (7-10/10) Last Admin: 04/23/19 14:35 Dose: 2 mg Documented by: Morphine Sulfate () 6 mg IV UD [facility] Last Admin: 04/23/19 19:02 Dose: 6 mg Documented by: Multivitamins (Multivitamin) 1 tablet PO DAILYCM [facility] Nutritional Formula (Matthew - Haines Flavor) 1 packet PO BIDCM [facility] Last Admin: 04/23/19 17:28 Dose: 1 packet Documented by: Nutritional Formula (Lactose Free) (Glucerna Shake) 120 ml PO 4X/DAY [facility] Last Admin: 04/23/19 21:13 Dose: 120 ml Documented by: Nystatin (Nystatin) 500,000 unit PO 4X/DAY [facility] Last Admin: 04/23/19 21:09 Dose: 500,000 unit Documented by: Ondansetron HCl (Zofran) 4 mg IV Q8H PRN PRN PRN Reason: NAUSEA/VOMITING Oxycodone HCl (Oxyir) 5 mg PO Q4H PRN PRN PRN Reason: Moderate Pain (pain scale 4-5) Senna/Docusate Sodium (Senokot-S, Genevieve-Colace) 2 tablet PO BID [facility] Last Admin: 04/23/19 21:09 Dose: 2 tablet Documented by: Sodium Chloride () 10 - 40 ml IV UD PRN PRN Reason: SALINE FLUSH Last Admin: 04/23/19 10:35 Dose: 20 ml Documented by: Zinc Sulfate (Zinc Sulfate) 220 mg PO DAILY [facility] Last Admin: 04/23/19 17:28 Dose: 220 mg Documented by: Home Medications: Ambulatory Orders Medication Instructions Recorded Glipizide 10 mg PO DAILY #60 tab 08/23/18 Metformin HCl 1,000 mg PO BID #60 tab 08/23/18 Cephalexin [Keflex] 500 mg PO Q6 #40 cap 04/16/19 Insulin NPH Human Isophane 10 units SQ BID 04/16/19 [Novolin N] Smz/Tmp Ds [Bactrim Ds] 1 tab PO BID #14 tab 04/16/19 Surgical History: no surgical history Psychiatric History: No pertinent psych hx [employer]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 Paternal History Items: Unknown - Patient is adopted. Review of Systems Comment: Constitutional: Reports: Fever. Denies: Anorexia, Chills, Weakness. Eyes: Denies: Blurred vision, Double vision, Drainage, Redness. HEENT: Denies: Difficulty Hearing, Ear Pain, Eye Pain, Nasal Congestion, Sore Throat. Cardiovascular: Denies: Chest Pain, Chest Pressure, Chest Tightness, Edema, Heaviness, Palpitations, Syncope. Respiratory: Denies: Cough, Hemoptysis, Pleuritic Pain, Shortness of Breath, Sputum production, Wheezing. Gastrointestinal: Denies: Abdominal Pain, Constipation, Diarrhea, Nausea, Vomiting. Genitourinary: Denies: Dysuria, Frequency, Hematuria. Musculoskeletal: Reports: Leg Pain, Muscle pain. Denies: Arm Pain, Back Pain. Skin: Denies: Dryness, Rash. Neurological: Denies: Balance problems, Double vision, Change in Speech, Slurred speech, Confusion, Headaches, Incoordination, Numbness. Psychiatric: Denies: Anxiety, Depression. Endocrine: Denies: Change in Body Habitus, Polydipsia, Polyuria Patient Problems: Active and Suspected Problems Necrotizing fasciitis of pelvic region and thigh (Acute) Complicated open wound of right thigh (Acute) necrotizing diabetes infection right gluteal, perineal, medial thigh, and vulval areas Open wound of vulva with complication (Acute) necrotizing diabetes infection right gluteal, perineal, medial thigh, and vulval areas Open wound of right buttock with complication (Acute) necrotizing diabetes infection right gluteal, perineal, medial thigh, and vulval areas Necrotizing soft tissue infection (Acute) Acute right gluteal cellulitis (Acute) - Physical Exam General: Alert, Oriented x3, Cooperative. HEENT: PERRLA, EOMI. Oral: Moist Mucosa. Neck: Supple, Nontender. No cervical adenopathy. Lungs: Clear to auscultation. Cardiovascular: Regular rate, Regular Rhythm. Abdomen: Soft, Non-Distended. Extremities: No clubbing, No cyanosis. Mild edema right thigh. Skin: No rashes, Ulcer/ Wound, - - Large open wound right gluteal area extending into perineum. Measures 15 x 5 cm. Exposed subcutaneous tissue appears viable. Could not appreciate any progression of a necrotizing process. There is tenderness in the wound. There is a separate wound in the right labial area. Exposed subcutaneous tissue appears viable. Could not appreciate any progression of a necrotizing process. Minimal redness noted in the periwound area. No purulent drainage seen. No odor appreciated. Lymphatic: No Cervical, Supraclavicular, or Inguinal Adenopathy Neurological: Cranial nerves II-XII grossly intact. Psych/Mental Status: Normal Affect, Appropriate, Alert and oriented to time, arie ce, person, mood and affect. Vital Signs Temp Pulse Resp BP Pulse Ox 100.6 F H 93 16 136/67 H 97 04/23/19 20:02 04/23/19 20:02 04/23/19 20:02 04/23/19 20:02 04/23/19 20:02 Oxygen Flow Rate (L/min) 2 Oxygen Delivery Method Nasal Cannula Weight: 206 lb 2.115 oz Body Mass Index (BMI) 33.3 Finger Stick Blood Glucose 320 Intake and Output for Last 24 Hours 04/21/19 04/22/19 04/23/19 23:59 23:59 23:59 Intake Total 1000 / 1000 3866 / 3866 Output Total 425 / 425 1000 / 1000 Balance 575 / 575 2866 / 2866 Microbiology Past 72 Hours 04/22/19 22:58 Gram Stain - Final Wound Abcess - Aerobic & Anaerobic Swabs 04/22/19 22:58 Gram Stain - Final Aspirate - Buttock Laboratory Tests Past 24 Hrs 04/22/19 04/22/19 04/23/19 18:17 22:58 05:32 WBC 18.7 H RBC 4.30 Hgb 12.5 Hct 37.3 MCV 86.7 MCH 29.1 MCHC 33.5 RDW 13.3 RDW Differential 41.1 Plt Count 288 MPV 12.0 Immature Gran % (Auto) 1.800 H Neut % (Auto) 78.6 H Lymph % (Auto) 9.5 L Lyon % (Auto) 9.1 Eos % (Auto) 0.7 Baso % (Auto) 0.3 Absolute Neuts (auto) 14.7 H Absolute Lymphs (auto) 1.77 Total Counted Not Reportable Differential Comment COMMENT Diff Path Review May foll Sodium Potassium Chloride Carbon Dioxide Anion Gap BUN Creatinine Estim Creat Clear Calc Est GFR (MDRD) Af Amer Est GFR (MDRD) Non-Af BUN/Creatinine Ratio Glucose Hemoglobin A1c 11.6 H Calcium Phosphorus Magnesium Total Bilirubin Direct Bilirubin AST ALT Alkaline Phosphatase Total Protein Albumin Globulin Triglycerides Cholesterol LDL Cholesterol VLDL Cholesterol HDL Cholesterol S.aureus Protein A PCR NEGATIVE MRSA (PCR) Negative 04/23/19 04/23/19 05:32 05:32 WBC RBC Hgb Hct MCV MCH MCHC RDW RDW Differential Plt Count MPV Immature Gran % (Auto) Neut % (Auto) Lymph % (Auto) Lyon % (Auto) Eos % (Auto) Baso % (Auto) Absolute Neuts (auto) Absolute Lymphs (auto) Total Counted Differential Comment Diff Path Review Sodium 134 L Potassium 4.1 Chloride 104 Carbon Dioxide 25.0 Anion Gap 5 BUN 11 Creatinine 0.49 L Estim Creat Clear Calc 147.16 Est GFR (MDRD) Af Amer 183 Est GFR (MDRD) Non-Af 151 BUN/Creatinine Ratio 22.5 H Glucose 304 H Hemoglobin A1c Calcium 8.5 Phosphorus 3.1 Magnesium 1.8 Total Bilirubin 0.30 Direct Bilirubin 0.09 AST 10 L ALT 13 Alkaline Phosphatase 153 H Total Protein 6.5 Albumin 1.8 L Globulin 4.7 H Triglycerides 181 Cholesterol 124 LDL Cholesterol 72 VLDL Cholesterol 36 HDL Cholesterol 16 L S.aureus Protein A PCR MRSA (PCR) POC Glucose 04/23/19 04/23/19 04/23/19 16:18 12:13 00:24 POC Glucose 186 H 259 H 379 H 04/22/19 23:05 POC Glucose 320 H Diagnostic Data Pelvis CT 04/22/19 18:14 IMPRESSION: Extensive cellulitis of the inferior right buttock soft tissues extending into the proximal medial thigh, perineum and right labia. Without abscess. Associated with mild lymphadenopathy. Electronically Signed: Bryce Macedo MD at 19:27 EDT Tel , Service support , Chest X-Ray 04/23/19 07:41 IMPRESSION: Lucent airspace projecting over the left hilum of uncertain significance. Bandlike opacities left lung base which may reflect infiltrate, scar or atelectasis. CT chest recommended. Electronically Signed: Bryce Macedo MD at 12:02 EDT Tel , Service support , Assessment/Plan All Active Problems Necrotizing fasciitis of pelvic region and thigh (Acute) Complicated open wound of right thigh (Acute) Open wound of vulva with complication (Acute) Open wound of right buttock with complication (Acute) Necrotizing soft tissue infection (Acute) Acute right gluteal cellulitis (Acute) 1. Necrotizing diabetes infection right gluteal, perineal, medial thigh, and vulval areas. 2. s/p debridement of necrotizing fasciitis - right buttock, perineum, labia, thigh. 3. Diabetes mellitus. 4. Smoker. CT Pelvis reviewed. Wound looks clean at the present time. No clinical evidence of progression of the necrotizing process. Tolerated the dressing change with some pain. May need to go to an ECF at discharge as the wound care would be difficult at home at this time. Difficult area for a wound VAC. Continue Vancomycin and Zosyn. Operative culture pending thus far. MRSA Wound DNA by PCR was negative. Anticipate increased metabolic demands from the infection and the large wound. Will check a Prealbumin and encourage nutritional supplementation with protein to help the healing process. Will continue to monitor her wounds clinically very closely for any progression of the necrotizing process. If suspected, would need further operative debridement. Being aggressive is important since further progression of the necrotizing process may put the extremity at risk for amputation as well as being potentially life threatening. Will also follow the WBC and the temperature for additional information in the decision making process. Ultimately the decision to proceed with further operative debridement is a clinical one. The wound is close to the anal opening. Will need to take a shower after each bowel movement to minimize stool contamination in the wound. If stool contamination becomes a problem, then a diverting colostomy would be necessary. After discharge, can followup at the Wound Center. If there is a plateau in the healing process, can proceed with delayed closure with skin grafting. Patient was informed of the risks and complications of the procedure including alternatives to surgery. These were discussed with the patient personally. Patient voices understanding and wishes to proceed. She voices understanding that if further surgery is necessary, the wound would be made larger with the need for a possible diverting colostomy. Encouraged patient to stop smoking as it may have deleterious effects on wound healing. Discussed with the patient that poorly controlled diabetes (HgbA1c 11.6) increases the risk of potentially life threatening infections. She will see her PCP more frequently in the future to work on better diabetes control. Code Visit Inpatient E&M: 90633 Init Hosp L2 - ICD-10 - M79.89, M72.6, E11.9, S31.819A, S31.40xA, S71.101A, F17.200
[2019-04-23 22:56] LABS: Bedside Glucose 251 mg/dL (70-110)
[2019-04-24] VITALS (12 sets, daily range): BP systolic 107–153; BP diastolic 55–77; PULSE 81–111; RESP 16–23; TEMP 36.7–37.4; O2SAT 95–100; BMI 33.3
--- NOTE | 2019-04-24 | ABS_PTH ---
PATIENT: SYDNEY SILVER LOC: [facility] U#:[id number] AGE/SX: 38/F ROOM: ICU02 RE04/22/[address]: Dr. Krissy Dumont DO : 1980 BED: 1 DIS: 04/25/2019 SPEC #: [id number] RECD: 04/24/19 16:37 STATUS: BOB REQ #: [id number] MARY: 04/24/19 00:[address]: Bryce Huynh DEPT: SURGICAL PATHOLOGY RECD BY: Tc Shepard ENTERED: 04/25/19 14:01 SP TYPE: Abscess OTHR DR: DO Dr. Tevin Driscoll MD Dr. Marc Fiorentino, MD Dr. Richard Guttman, MD Julie Podlogroopa, CAR RUNNER-C Tissues: Lower extremity, NOS Procedures: Surgery Specimen Level III Comments: @ Ordering doctor for SUIII edited from to @ by HUBERT at 04/25/19 1516 @ Submitting doctor edited from to @ by JOSEOD at 04/25/19 1516 HEADER OPERATION: Surgical preparation right perineum, gluteal, medial thigh PRE-OP DIAGNOSIS: Necrotizing diabetic infection right gluteal area extending to perineal, vulva and thigh areas TISSUE SUBMITTED: Necrotizing diabetic debrided tissue right gluteal area extending to perineal, vulva and thigh areas MICROSCOPIC DIAGNOSIS Necrotizing debrided tissue right gluteal, sacral, vulva and medial thigh areas: Pieces of skin and fibroadipose tissue with acute inflammation and abscess formation. CORRIE:patrick 04/27/19 COMMENT Please make reference to previous specimen ([id number]) skin and fat, necrotizing fasciitis with diagnosis of pieces of skin and fibroadipose and fibroconnective tissue with acute inflammation and abscess formation and special stains for acid fast bacilli and fungi are negative for organisms; matched controls are appropriate. MICROSCOPIC DESCRIPTION Slides are reviewed. GROSS DESCRIPTION Received in fixative is one container labeled with the patient's name and designated necrotizing debrided tissue right gluteal, sacral, vulva and medial thigh areas. The specimen consists of multiple pieces of skin with underlying tissue that in aggregate measure 26 x 17 x 5 cm. Operators Teacher sections are submitted in three cassettes. / CORRIE:patrick 04/25/19 TC:2 CPT: 98884
[2019-04-24 00:16] LABS: Bedside Glucose 313 mg/dL (70-110)
[2019-04-24] MEDS: 0.9% Normal Saline 1,000 ML 100 ML IV ×4 (00:50→19:00)
[2019-04-24] MEDS: oxyCODONE 5 MG Tablet PO ×3 (02:07→22:25)
[2019-04-24] MEDS: Insulin Lispro 100 UNIT/ML INSULN.PEN SC ×4 (05:29→22:35)
[2019-04-24 05:35] LABS: Bedside Glucose 216 mg/dL (70-110)
[2019-04-24 06:47] LABS: Absolute Lymphocyte Count 2.48 X10^3/ul (0.83-4.51); Basophil# 0.06 X10^3/uL; Basophil% 0.5 % (0-1); Eosinophil# 0.28 X10^3/uL; Eosinophils% 2.3 % (0-5); Hematocrit 32.4 % (37-47); Hemoglobin 10.6 g/dl (12.0-15.0); Lymphocyte # 2.48 X10^3/ul (4.0); Mean Corp Hgb Conc 32.7 g/gl (32-36); Mean Corpuscular Hgb 29.4 pg (27.0-32.0); Mean Corpuscular Volume 89.8 fL (81-99); Mean Platelet Vol. 11.6 fl (6.2-12.0); Monocyte# 1.21 X10^3/uL; Monocyte% 9.8 % (0-10); Neutrophil # 7.99 X10^3/uL (2.7-7.7); Neutrophil % 64.6 % (47-70); Platelet Count 262 K/mm3 (150-450); RBC Distribution Width CV 13.6 % (11.6-14.6); RBC Distribution Width SD 44.7 fl (35.1-43.9); Red Blood Count 3.61 M/mm3 (4.2-5.4); White Blood Count 12.4 K/mm3 (4.4-11.0)
[2019-04-24 06:54] LABS: ALB/GLOB Ratio 0.3 RATIO (0.9-2.4); AST(SGOT) 21 U/L (15-37); Alanine Aminotransfer ALT/SGPT 18 U/L (13-56); Albumin, Serum 1.5 g/dL (3.2-5.0); Alkaline Phosphatase 139 U/L (45-117); Anion Gap 6 (5-15); BUN 10 mg/dL (7-18); BUN/Creat Ratio 28.7 RATIO (10-20); Calcium,Total 8.2 mg/dL (8.5-10.1); Chloride 105 mmol/L (98-107); Creatinine, Serum 0.35 mg/dL (0.55-1.02); EST Glomerular Filtration Rate 223 mL/min (>60); Est Glom Filt Rate - Afr Amer 270 mL/min (>60); Estimated Creatinine Clearance 206.02 ml/min; Globulin 4.3 g/dL (2.2-4.2); Glucose 230 mg/dL (74-106); Potassium 3.8 mmol/L (3.5-5.1); Prealbumin 3.4 mg/dL (20.0-40.0); Protein, Total 5.8 g/dL (6.4-8.2); Sodium Level 139 mmol/L (136-145)
--- NOTE | 2019-04-24 07:03 | PCM.PROGNOTE ---
Patient Problems: Active and Suspected Problems Acute right gluteal cellulitis (Acute) Subjective: Postoperative day #2 Antibiotic day #3 Zosyn and vancomycin T-max 100.6 ?F at 8 PM on 04/23/2019. Afebrile this morning. Vital signs are stable. The O2 has been weaned down to 2 L and she is maintaining an oxygen saturation of 97 to 99%. Fluid balance on 04/23/2019 was +3911. Fluid balance since admission is +5137. All lab was reviewed. Albumin is 1.5 today. LFTs are unremarkable. Not requiring much for pain control - Physical Exam General: Alert, Oriented x3, Cooperative Oral: Moist Mucosa Lungs: Clear to auscultation - initially had coarse rales in the bases but, this resolved after a few deep breaths Cardiovascular: Regular rate, Regular Rhythm, Normal S1, Normal S2, No murmurs, No Ectopic Activity, No Gallop Abdomen: Bowel Sounds Present, Soft, Non-Distended, Tender - in the lower R quadrant Extremities: No clubbing, No cyanosis, Edema - some edema of the hands Skin: - - I did not visualize the wound today.......it was seen by Dr. Parker, please see his dictation Vital Signs Temp Pulse Resp BP Pulse Ox 98.9 F 83 16 126/66 H 99 04/24/19 02:00 04/24/19 02:00 04/24/19 02:00 04/24/19 02:00 04/24/19 02:00 Oxygen Flow Rate (L/min) 2 Oxygen Delivery Method Nasal Cannula Weight: 206 lb 2.115 oz Body Mass Index (BMI) 33.3 Finger Stick Blood Glucose 320 Intake and Output for Last 24 Hours 04/22/19 04/23/19 04/24/19 23:59 23:59 23:59 Intake Total 1000 / 1000 5311.3 / 5311.3 1001 / 1001 Output Total 425 / 425 1400 / 1400 350 / 350 Balance 575 / 575 3911.3 / 3911.3 651 / 651 Microbiology Past 72 Hours 04/22/19 22:58 Gram Stain - Final Wound Abcess - Aerobic & Anaerobic Swabs 04/22/19 22:58 Gram Stain - Final Aspirate - Buttock Laboratory Tests Past 24 Hrs 04/23/19 04/23/19 04/24/19 05:32 05:32 05:55 WBC Pending RBC Pending Hgb Pending Hct Pending MCV Pending MCH Pending MCHC Pending RDW Pending RDW Differential Pending Plt Count Pending Neut % (Auto) Pending Absolute Neuts (auto) Pending Total Counted Pending Differential Comment COMMENT Diff Path Review May foll Sodium Potassium Chloride Carbon Dioxide Anion Gap BUN Creatinine Estim Creat Clear Calc Est GFR (MDRD) Af Amer Est GFR (MDRD) Non-Af BUN/Creatinine Ratio Glucose Hemoglobin A1c Calcium Phosphorus 3.1 Magnesium 1.8 Total Bilirubin 0.30 Direct Bilirubin 0.09 AST 10 L ALT 13 Alkaline Phosphatase 153 H Total Protein 6.5 Albumin 1.8 L Globulin 4.7 H Albumin/Globulin Ratio Prealbumin Triglycerides 181 Cholesterol 124 LDL Cholesterol 72 VLDL Cholesterol 36 HDL Cholesterol 16 L 04/24/19 04/24/19 05:55 05:55 WBC RBC Hgb Hct MCV MCH MCHC RDW RDW Differential Plt Count Neut % (Auto) Absolute Neuts (auto) Total Counted Differential Comment Diff Path Review Sodium 139 Potassium 3.8 Chloride 105 Carbon Dioxide 28.0 Anion Gap 6 BUN 10 Creatinine 0.35 L Estim Creat Clear Calc 206.02 Est GFR (MDRD) Af Amer 270 Est GFR (MDRD) Non-Af 223 BUN/Creatinine Ratio 28.7 H Glucose 230 H Hemoglobin A1c Pending Calcium 8.2 L Phosphorus Magnesium Total Bilirubin 0.30 Direct Bilirubin AST 21 ALT 18 Alkaline Phosphatase 139 H Total Protein 5.8 L Albumin 1.5 L Globulin 4.3 H Albumin/Globulin Ratio 0.3 L Prealbumin 3.4 L Triglycerides Cholesterol LDL Cholesterol VLDL Cholesterol HDL Cholesterol POC Glucose 04/24/19 04/23/19 04/23/19 05:28 22:45 16:18 POC Glucose 216 H 251 H 186 H 04/23/19 04/23/19 12:13 06:57 POC Glucose 259 H 313 H Medical Necessity - Tobacco Use Smoking Status: Current every day smoker Tobacco Use: Cigarettes Assessment/Plan All Active Problems Acute right gluteal cellulitis (Acute) Impressions 1. necrotizing fasciitis of the R buttock, thigh, labia and perineum in and uncontrolled diabetic 2. DM II - uncontrolled 3. borderline personality disorder 4. THrush 5. Asthma 6. Morbid obesity 7. Acute respiratory insufficiency with hypoxemia - possible left base infiltrate on CXR Continue vancomycin and Zosyn Discussed with Dr. Parker. Temp to 100.6 earlier this morning so he will be taking her back to surgery for further debridement Recheck lab in the a.m. depending on the results of the surgery may need to transfer to a higher level of care
[2019-04-24 07:05] LABS: POSITIVE COUNT YES; POSITIVE DIFFERENTIAL NO; POSITIVE MORPHOLOGY YES
[2019-04-24 08:21] LABS: Hemoglobin A1c 11.3 % (4.2-6.3)
[2019-04-24 09:22] LABS: Vancomycin, Trough Level 4.6 ug/mL (5.0-15.0)
--- NOTE | 2019-04-24 10:30 | PN.ID_ITS ---
Patient Problems: Active and Suspected Problems Acute right gluteal cellulitis (Acute) Subjective: Feeling ok, pain improved, no fever, no n/v/d. - Physical Exam General: Alert, Cooperative, No apparent distress Lungs: Clear to auscultation, Normal air movement Cardiovascular: Regular rate, Regular Rhythm Abdomen: Soft, Non Tender, Non-Distended Skin: Ulcer/ Wound - reviewed photos Vital Signs Temp Pulse Resp BP Pulse Ox 98.7 F 81 18 121/68 H 96 04/24/19 08:50 04/24/19 08:50 04/24/19 08:50 04/24/19 08:50 04/24/19 08:50 Oxygen Flow Rate (L/min) 2 Oxygen Delivery Method Nasal Cannula Weight: 93.5 kg Body Mass Index (BMI) 33.3 Finger Stick Blood Glucose 320 Intake and Output for Last 24 Hours 04/22/19 04/23/19 04/24/19 23:59 23:59 23:59 Intake Total 1000 / 1000 5311.3 / 5311.3 1001 / 1001 Output Total 425 / 425 1400 / 1400 350 / 350 Balance 575 / 575 3911.3 / 3911.3 651 / 651 Microbiology Past 72 Hours 04/22/19 22:58 Gram Stain - Final Wound Abcess - Aerobic & Anaerobic Swabs Wound Culture - Preliminary Mixed Gram Positive Organisms 04/22/19 22:58 Gram Stain - Final Aspirate - Buttock Wound Culture - Preliminary Mixed Gram Positive Organisms Laboratory Tests Past 24 Hrs 04/24/19 04/24/19 04/24/19 05:55 05:55 05:55 WBC 12.4 H RBC 3.61 L Hgb 10.6 L Hct 32.4 L MCV 89.8 MCH 29.4 MCHC 32.7 RDW 13.6 RDW Differential 44.7 H Plt Count 262 MPV 11.6 Immature Gran % (Auto) 2.800 H Neut % (Auto) 64.6 Lymph % (Auto) 20.0 Beckham % (Auto) 9.8 Eos % (Auto) 2.3 Baso % (Auto) 0.5 Absolute Neuts (auto) 8.0 H Absolute Lymphs (auto) 2.48 Total Counted Not Reportable Sodium 139 Potassium 3.8 Chloride 105 Carbon Dioxide 28.0 Anion Gap 6 BUN 10 Creatinine 0.35 L Estim Creat Clear Calc 206.02 Est GFR (MDRD) Af Amer 270 Est GFR (MDRD) Non-Af 223 BUN/Creatinine Ratio 28.7 H Glucose 230 H Hemoglobin A1c 11.3 H Calcium 8.2 L Total Bilirubin 0.30 AST 21 ALT 18 Alkaline Phosphatase 139 H Total Protein 5.8 L Albumin 1.5 L Globulin 4.3 H Albumin/Globulin Ratio 0.3 L Prealbumin 3.4 L Vancomycin Trough 04/24/19 08:55 WBC RBC Hgb Hct MCV MCH MCHC RDW RDW Differential Plt Count MPV Immature Gran % (Auto) Neut % (Auto) Lymph % (Auto) Beckham % (Auto) Eos % (Auto) Baso % (Auto) Absolute Neuts (auto) Absolute Lymphs (auto) Total Counted Sodium Potassium Chloride Carbon Dioxide Anion Gap BUN Creatinine Estim Creat Clear Calc Est GFR (MDRD) Af Amer Est GFR (MDRD) Non-Af BUN/Creatinine Ratio Glucose Hemoglobin A1c Calcium Total Bilirubin AST ALT Alkaline Phosphatase Total Protein Albumin Globulin Albumin/Globulin Ratio Prealbumin Vancomycin Trough 4.6 L POC Glucose 04/24/19 04/23/19 04/23/19 05:28 22:45 16:18 POC Glucose 216 H 251 H 186 H 04/23/19 04/23/19 12:13 06:57 POC Glucose 259 H 313 H Medical Necessity - Tobacco Use Smoking Status: Current every day smoker Tobacco Use: Cigarettes Route of nutrition/ use of supplements: [] Nutritional Intake: [] IV Site: [] Esparza Catheter: [] - Assessment/Plan Antibiotics: [] Assessment/Plan: [] Active and Suspected Problems Acute right gluteal cellulitis (Acute) Necrotizing fasciitis of perineum - taken to OR 04/[address] Huynh. Surg cx with mixed flower. On vanc/zosyn. If wound is having ongoing necrosis, will need iv clinda 900mg q8h and repeat debridement. Will follow
--- NOTE | 2019-04-24 10:44 | PCM.PN.SRG ---
Patient Problems: Active and Suspected Problems Acute right gluteal cellulitis (Acute) Subjective: more comfortable today - Physical Exam General: Alert, Oriented x3, Cooperative Extremities: - - dressing in place Vital Signs Temp Pulse Resp BP Pulse Ox 98.7 F 81 18 121/68 H 96 04/24/19 08:50 04/24/19 08:50 04/24/19 08:50 04/24/19 08:50 04/24/19 08:50 Oxygen Flow Rate (L/min) 2 Oxygen Delivery Method Nasal Cannula Weight: 93.5 kg Body Mass Index (BMI) 33.3 Finger Stick Blood Glucose 320 Intake and Output for Last 24 Hours 04/22/19 04/23/19 04/24/19 23:59 23:59 23:59 Intake Total 1000 / 1000 5311.3 / 5311.3 1001 / 1001 Output Total 425 / 425 1400 / 1400 350 / 350 Balance 575 / 575 3911.3 / 3911.3 651 / 651 Microbiology Past 72 Hours 04/22/19 22:58 Gram Stain - Final Wound Abcess - Aerobic & Anaerobic Swabs Wound Culture - Preliminary Mixed Gram Positive Organisms 04/22/19 22:58 Gram Stain - Final Aspirate - Buttock Wound Culture - Preliminary Mixed Gram Positive Organisms Laboratory Tests Past 24 Hrs 04/24/19 04/24/19 04/24/19 05:55 05:55 05:55 WBC 12.4 H RBC 3.61 L Hgb 10.6 L Hct 32.4 L MCV 89.8 MCH 29.4 MCHC 32.7 RDW 13.6 RDW Differential 44.7 H Plt Count 262 MPV 11.6 Immature Gran % (Auto) 2.800 H Neut % (Auto) 64.6 Lymph % (Auto) 20.0 Taylor % (Auto) 9.8 Eos % (Auto) 2.3 Baso % (Auto) 0.5 Absolute Neuts (auto) 8.0 H Absolute Lymphs (auto) 2.48 Total Counted Not Reportable Sodium 139 Potassium 3.8 Chloride 105 Carbon Dioxide 28.0 Anion Gap 6 BUN 10 Creatinine 0.35 L Estim Creat Clear Calc 206.02 Est GFR (MDRD) Af Amer 270 Est GFR (MDRD) Non-Af 223 BUN/Creatinine Ratio 28.7 H Glucose 230 H Hemoglobin A1c 11.3 H Calcium 8.2 L Total Bilirubin 0.30 AST 21 ALT 18 Alkaline Phosphatase 139 H Total Protein 5.8 L Albumin 1.5 L Globulin 4.3 H Albumin/Globulin Ratio 0.3 L Prealbumin 3.4 L Vancomycin Trough 04/24/19 08:55 WBC RBC Hgb Hct MCV MCH MCHC RDW RDW Differential Plt Count MPV Immature Gran % (Auto) Neut % (Auto) Lymph % (Auto) Taylor % (Auto) Eos % (Auto) Baso % (Auto) Absolute Neuts (auto) Absolute Lymphs (auto) Total Counted Sodium Potassium Chloride Carbon Dioxide Anion Gap BUN Creatinine Estim Creat Clear Calc Est GFR (MDRD) Af Amer Est GFR (MDRD) Non-Af BUN/Creatinine Ratio Glucose Hemoglobin A1c Calcium Total Bilirubin AST ALT Alkaline Phosphatase Total Protein Albumin Globulin Albumin/Globulin Ratio Prealbumin Vancomycin Trough 4.6 L POC Glucose 04/24/19 04/23/19 04/23/19 05:28 22:45 16:18 POC Glucose 216 H 251 H 186 H 04/23/19 04/23/19 12:13 06:57 POC Glucose 259 H 313 H Medical Necessity - Tobacco Use Smoking Status: Current every day smoker Tobacco Use: Cigarettes Assessment/Plan All Active Problems Acute right gluteal cellulitis (Acute) POD #1 s/p wide debridement for necrotizing fasciitis from right bottock/right labia and inner thigh I performed OR exploration wide debridement. Dr. Parker consulted for continued wound evaluation/debridement. Dr Parker noted area seemed well debrided. Jennifer will plan for dressing, possible wound vac. we'll plan for broad-spectrum antibiotics-Zosyn and vancomycin. ID consult noted. await cultures Patient's blood glucoses will be monitored and she will placed on a sliding scale. Patient with oral thursh - started nystatin QID - notes significant improvment in mouth discomfort
[2019-04-24] MEDS: morphine 10 MG/ML Syringe 6 MG IV (11:09)
[2019-04-24] MEDS: LORazepam 2 MG/ML Syringe 1 MG IV (11:12)
[2019-04-24] MEDS: 0.9% NaCl Peripheral Flush Adult/Peds IV ×2 (11:15→20:21)
--- NOTE | 2019-04-24 11:27 | PCM.RX.CS ---
Consult Pharmacy has been consulted to manage selected antiobiotic: Vancomycin Type of Consult: Follow-up Suspected Infection: Skin/Soft tissue Prior Doses of Antibiotics Received/Current Regimen: 4 Labs: Sodium 139 mmol/L (136-145) 04/24/19 05:55 Potassium 3.8 mmol/L (3.5-5.1) 04/24/19 05:55 Chloride 105 mmol/L (98-107) 04/24/19 05:55 Carbon Dioxide 28.0 mmol/L (21.0-32.0) 04/24/19 05:55 6 (5-15) 04/24/19 05:55 BUN 10 mg/dL (7-18) 04/24/19 05:55 0.35 mg/dL (0.55-1.02) L 04/24/19 05:55 Est GFR (MDRD) Af Amer 270 mL/min (>60) 04/24/19 05:55 Est GFR (MDRD) Non-Af 223 mL/min (>60) 04/24/19 05:55 28.7 RATIO (10-20) H 04/24/19 05:55 Glucose 230 mg/dL (74-106) H 04/24/19 05:55 Vancomycin Trough 4.6 ug/mL (5.0-15.0) L 04/24/19 08:55 REPEAT TROUGH LEVEL PRIOR TO 4TH DOSE OF NEW REGIMEN Microbiology: Microbiology 04/22/19 22:58 Wound Abcess - Aerobic & Anaerobic Swabs Gram Stain - Final 04/22/19 22:58 Wound Abcess - Aerobic & Anaerobic Swabs Wound Culture - Preliminary Mixed Gram Positive Organisms 04/22/19 22:58 Aspirate - Buttock Gram Stain - Final 04/22/19 22:58 Aspirate - Buttock Wound Culture - Preliminary Mixed Gram Positive Organisms Weight used for dosin.5 kg Estimated Creatinine Clearance: 206 Goal Trough: 10-15 mcg/mL - NEW DOSE 1250MG IVPB Q8H, TROUGH ORDERED PRIOR TO 4TH NEW DOSE Pharmacy Plan for Drug Dosing: Pharmacy Service will continue to monitor and adjust dosing as required.
[2019-04-24 13:10] LABS: Bedside Glucose 208 mg/dL (70-110)
--- NOTE | 2019-04-24 13:16 | PCA ---
pt off floor
--- NOTE | 2019-04-24 14:54 | NURSING ---
report called to icu
--- NOTE | 2019-04-24 14:59 | PCM.PN.SRG ---
Subjective: Patient complains of wound pain. She spiked a temp last night to 100.6. - Physical Exam General: Alert, Oriented x3 HEENT: PERRLA, EOMI Oral: Moist Mucosa Neck: Supple Lungs: Clear to auscultation Cardiovascular: Regular rate, Regular Rhythm Abdomen: Soft, Non-Distended Extremities: No clubbing, No cyanosis, Edema - mild edema right thigh. Skin: Ulcer/ Wound - Large open wound right gluteal area extending into perineum. Measures 15 x 5 cm. There is exudate present in the subcutaneous tissue and purulent drainage is noted. There is more of an odor than yesterday. Also purulent drainage is noted coming from the separate wound in the right labial area. There is evidence of progression of the necrotizing process. There is increased tenderness in the wound. Further operative intervention was recommended urgently. Neurological: Cranial nerves II-XII grossly intact Psych/Mental Status: Normal Affect, Appropriate Vital Signs Temp Pulse Resp BP Pulse Ox 98.1 F 89 16 125/75 H 95 04/24/19 11:45 04/24/19 11:45 04/24/19 11:45 04/24/19 11:45 04/24/19 11:45 100.6 F 04/23/19 20:02 Oxygen Flow Rate (L/min) 2 Oxygen Delivery Method Nasal Cannula Weight: 206 lb 2.115 oz Body Mass Index (BMI) 33.3 Finger Stick Blood Glucose 320 Intake and Output for Last 24 Hours 04/22/19 04/23/19 04/24/19 23:59 23:59 23:59 Intake Total 1000 / 1000 5311.3 / 5311.3 1001 / 1001 Output Total 425 / 425 1400 / 1400 475 / 475 Balance 575 / 575 3911.3 / 3911.3 526 / 526 Microbiology Past 72 Hours 04/22/19 22:58 Gram Stain - Final Wound Abcess - Aerobic & Anaerobic Swabs Wound Culture - Preliminary Mixed Gram Positive Organisms 04/22/19 22:58 Gram Stain - Final Aspirate - Buttock Wound Culture - Preliminary Mixed Gram Positive Organisms Laboratory Tests Past 24 Hrs 04/24/19 04/24/19 04/24/19 05:55 05:55 05:55 WBC 12.4 H RBC 3.61 L Hgb 10.6 L Hct 32.4 L MCV 89.8 MCH 29.4 MCHC 32.7 RDW 13.6 RDW Differential 44.7 H Plt Count 262 MPV 11.6 Immature Gran % (Auto) 2.800 H Neut % (Auto) 64.6 Lymph % (Auto) 20.0 [place] % (Auto) 9.8 Eos % (Auto) 2.3 Baso % (Auto) 0.5 Absolute Neuts (auto) 8.0 H Absolute Lymphs (auto) 2.48 Total Counted Not Reportable Sodium 139 Potassium 3.8 Chloride 105 Carbon Dioxide 28.0 Anion Gap 6 BUN 10 Creatinine 0.35 L Estim Creat Clear Calc 206.02 Est GFR (MDRD) Af Amer 270 Est GFR (MDRD) Non-Af 223 BUN/Creatinine Ratio 28.7 H Glucose 230 H Hemoglobin A1c 11.3 H Calcium 8.2 L Total Bilirubin 0.30 AST 21 ALT 18 Alkaline Phosphatase 139 H Total Protein 5.8 L Albumin 1.5 L Globulin 4.3 H Albumin/Globulin Ratio 0.3 L Prealbumin 3.4 L Vancomycin Trough 04/24/19 08:55 WBC RBC Hgb Hct MCV MCH MCHC RDW RDW Differential Plt Count MPV Immature Gran % (Auto) Neut % (Auto) Lymph % (Auto) [place] % (Auto) Eos % (Auto) Baso % (Auto) Absolute Neuts (auto) Absolute Lymphs (auto) Total Counted Sodium Potassium Chloride Carbon Dioxide Anion Gap BUN Creatinine Estim Creat Clear Calc Est GFR (MDRD) Af Amer Est GFR (MDRD) Non-Af BUN/Creatinine Ratio Glucose Hemoglobin A1c Calcium Total Bilirubin AST ALT Alkaline Phosphatase Total Protein Albumin Globulin Albumin/Globulin Ratio Prealbumin Vancomycin Trough 4.6 L POC Glucose 04/24/19 04/24/19 04/23/19 11:07 05:28 22:45 POC Glucose 208 H 216 H 251 H 04/23/19 04/23/19 16:18 06:57 POC Glucose 186 H 313 H Medical Necessity - Tobacco Use Smoking Status: Current every day smoker Tobacco Use: Cigarettes Assessment/Plan All Active Problems Necrotizing fasciitis of pelvic region and thigh (Acute) Complicated open wound of right thigh (Acute) Open wound of vulva with complication (Acute) Open wound of right buttock with complication (Acute) Necrotizing soft tissue infection (Acute) Acute right gluteal cellulitis (Acute) 1. Necrotizing diabetes infection right gluteal, perineal, medial thigh, and vulval areas, clinically worsening. 2. s/p debridement of necrotizing fasciitis - right buttock, perineum, labia, thigh. 3. Diabetes mellitus. 4. Smoker. Upon examination of the wound this morning, there is exudate present in the subcutaneous tissue and purulent drainage is noted. There is more of an odor than yesterday. Also purulent drainage is noted coming from the separate wound in the right labial area. There is evidence of progression of the necrotizing process. There is increased tenderness in the wound. Further operative intervention was recommended urgently, to be done today. Tolerated the dressing change with pain. It was loosely dressed since she will be going to surgery urgently, and the wound will be redressed at the end of the procedure. Being aggressive is important since further progression of the necrotizing process may put the extremity at risk for amputation as well as being potentially life threatening. Depending on how large the wound is after surgery today, she may need to be transferred to a tertiary Burn Center for more aggressive wound care with the [facility] and for better control of her pain since increased doses of IV analgesia can be given. Continue Vancomycin and Zosyn. Operative culture pending thus far. MRSA Wound DNA by PCR was negative. Anticipate increased metabolic demands from the infection and the large wound. Prealbumin was 3.4. Encourage nutritional supplementation with protein to help the healing process. The wound is close to the anal opening. Will need to take a shower after each bowel movement to minimize stool contamination in the wound. If stool contamination becomes a problem, then a diverting colostomy would be necessary. Also if additional operative debridement extends to the anal opening and muscular sphincter, then a diverting colostomy would be necessary. After discharge, can followup at the Wound Center. If there is a plateau in the healing process, can proceed with delayed closure with skin grafting. Patient was informed of the risks and complications of the procedure including alternatives to surgery. These were discussed with the patient personally. Patient voices understanding and wishes to proceed. She voices understanding that the wound would be made larger with the need for a possible diverting colostomy. Encouraged patient to stop smoking as it may have deleterious effects on wound healing. Discussed with the patient that poorly controlled diabetes (HgbA1c 11.6) increases the risk of potentially life threatening infections. She will see her PCP more frequently in the future to work on better diabetes control. Code Visit Inpatient E&M: 56123 Subs Hosp L3 - ICD-10 - M79.89, M72.6, E11.9, S31.819A, S31.40xA, S71.101A, F17.200
--- NOTE | 2019-04-24 15:46 | OP.PCM_ITS ---
Report of Operation Date of Procedure: 04/24/19 Pre-Operative Diagnosis: 1. Necrotizing diabetes infection right gluteal, perianal, perineal, medial thigh, and vulval areas. 2. Diabetes mellitus. 3. Smoker. Post-Operative Diagnosis: 1. Necrotizing diabetes infection right gluteal, perianal (involving muscular sphincter), perineal, medial thigh, and vulval (mons pubis and genitocrural area extending to vaginal mucosa) areas. 2. Diabetes mellitus. 3. Smoker. Surgery/Procedure Performed:: Surgical preparation right gluteal, perianal (involving muscular sphincter), perineal, medial thigh, and vulval (mons pubis and genitocrural area extending to vaginal mucosa) areas (500 cm2) with incision and drainage and excisional debridement necrotizing diabetic infection and partial vulvectomy (including deep subcutaneous tissue). Description of Surgical Findings:: The patient is a 38 year old F with a history of poorly controlled diabetes mellitus who presented with a 9 day history of a right buttock/perineal abscess. She went to the ED and was started on Bactrim and Keflex. The area worsened with increasing purulent drainage, pain, swelling, and redness. She presented to the ER. WBC count 19,000, blood glucose>300. CT scan of the pelvis was obtained. There was noted to have diffuse severe edema throughout the inferior aspect of the right gluteal soft tissue areas involving the saphenous fat extending the proximal medial thigh with associated skin thickening and edema extending the right labia. There was edema extending up regarding the right inguinal canal without blood was listed as defined abscess. She was urgently taken to surgery on 04/22/[address] Huynh where she underwent debridement of necrotizing fasciitis - right buttock, perineum, labia, thigh. She is currently on Vancomycin and Zosyn. I was asked to evaluate this patient for complex wound care to be continued after discharge at the Wound Center and for surgical options for wound closure in the future with skin grafting and to evaluate closely for any progression of the infection for additional operative debridement. WBC today has improved slightly to 18.7. Her HgbA1c was 11.6. I saw her on 04/23/19 and the wound looked stable with no clinical evidence of further necrosis. However later in the evening, she spiked a temperature to 100.6. When I saw her the next day, there was exudate present and further evidence of progression of the necrotizing process. Further operative intervention was recommended urgently. Patient was informed of the risks and complications of the procedure including alternatives to surgery. These were discussed with the patient personally. Patient voices understanding and wishes to proceed. It was discussed with her that the wound will be made larger from the surgical excision and the patient voices understanding. IV Fluids - 1000 ml. Urine Output - 125 ml. Size of defect right gluteal, perianal, perineal, medial thigh and vulval areas - 20 x 25 x 5 cm. airbrush artist photography: None Type of Anesthesia:: General Specimen's removed: Necrotizing diabetes infection right gluteal, perianal (involving muscular sphincter), perineal, medial thigh, and vulval (mons pubis and genitocrural area extending to vaginal mucosa) areas to Pathology and Microbiology. Drains: None. Estimated Blood Loss (mL): 750 ml. Fluids Replaced: 1125 ml (IV Fluids 1000 ml and Urine Output 125 ml). Description of Procedure: Patient was taken to OR in supine position and was placed under general anesthesia. She was placed in the lithotomy position as her legs were placed in stirrups. The right gluteal, perineal, perianal, medial thigh and vulval areas were prepped and draped in the usual fashion. SCD's were placed for DVT prophylaxis. Perioperative antibiotics were given intravenously. There was purulent drainage coming from the vulva. There was redness and induration on the medial thigh. Incisions were made around the previous wound extending from the right gluteal area to the medial thigh to the perianal area and perineal area. There was some necrosis of the anal muscular sphincter which was excised and debrided. The area of induration on the medial thigh was excised and debrided. No pus pockets were seen. Rather there was extensive pus infiltrated through the tissue. I opened up the previous incision on the vulva and there was soupy black necrotic tissue along with purulent drainage that extended superiorly to the mons pubis and medially to the vaginal mucosa and laterally to the genitocrural crease. The necrotizing process extended deep to the pelvic bone and was excised and debrided. On the medial thigh the necrotizing process was excised and debrided down to the muscle. The fascia was inflamed yet viable. The underlying muscle was viable. The incision and drainage of the necrotizing infection coupled with the excision and debridement of the necrotic tissue was quite bloody. The blood loss was estimated at 750 ml. Hemostasis was obtained with electrocautery. The large resultant wound measured 25 x 20 x 5 cm or 500 cm2. The large wound was irrigated with saline in a pulsatile fashion. I used 2000 ml of saline. Tissue that was excised and debrided was sent to Pathology for analysis to rule out carcinoma and to Microbiology for culture. A positive culture may necessitate antibiotic modification. With the extension of the infection to the anal muscular sphincter, the patient will need a diverting colostomy. With the severity of the infection, there is the real possibility over the next 24-48 hours that additional surgical debridement may be necessary. If so, further excision would involve the vagina with a vaginectomy and would be best served at a tertiary center with Gynecological Oncology. Also if there is further necrosis deeper to the pelvic bone, there are major vessels to the extremity in this area that may necessitate an amputation at the hip. These proximal amputations can be quite bloody and would be best served at a tertiary center. Also with the massive size of the resultant wound, postop wound care will be difficult secondary to pain. More adequate pain control with higher doses of Morphine that is usually given along with more aggressive wound care with whirlpool treatments, she would be best served at a tertiary Burn Center. With the amount of blood loss as well as the need for closer monitoring of the wound and the need for higher doses of IV analgesia, will have her go to the ICU postoperatively in serious condition. Will also check a Type and Cross some PRBC that may need to be transfused depending on the Hgb levels postop. The large wound was then dressed with Mepitel nonadherent dressing followed by Kerlix gauze and Betadine followed by dry Kerlix gauze and ABD pads compression dressing. Will begin Dakin's dressing changes tomorrow. Grafts/Implants Used: None. - Complications With the amount of blood loss and the large size of the wound and the need for large amounts of IV analgesia for pain control, will need close monitoring postop in the ICU. With the proximity of the wound to the anal opening and involvement of the muscular sphincter, the patient will need a diverting colostomy. The large size of the wound (500 cm2) can result in difficulty with adequate pain relief as well as providing adequate wound care secondary to the pain issue and would be best served with transfer to a tertiary Burn Center. - Admit VTE Documentation VTE Present on Admission: No VTE Mechan Device Prophylaxis: SCD's VTE Pharm Prophylaxis ordered?: Yes Code Visit Surgery Charges CPT - 21334 ICD-10 - M79.89, M72.6, E11.9, S31.819A, F17.200 94164 M79.89, M72.6, E11.9, S71.101A, F17.200, S31.819A 24792 M79.89, M72.6, E11.9, S31.40xA, F17.200, S31.819A, S71.101A
[2019-04-24] MEDS: Insulin Lispro 100 UNIT/ML INSULN.PEN 8 UNIT SC (17:51)
[2019-04-24] MEDS: NYSTATIN 500,000 UNIT/5 ML UDC 500000 UNIT PO ×2 (17:52→22:26)
[2019-04-24] MEDS: Ascorbic Acid 500 MG Tablet PO (17:53)
[2019-04-24 18:11] LABS: Hematocrit 31.5 % (37-47); Hemoglobin 10.1 g/dl (12.0-15.0); Mean Corp Hgb Conc 32.1 g/gl (32-36); Mean Corpuscular Hgb 28.9 pg (27.0-32.0); Mean Corpuscular Volume 90.3 fL (81-99); Mean Platelet Vol. 11.6 fl (6.2-12.0); Platelet Count 302 K/mm3 (150-450); RBC Distribution Width CV 13.5 % (11.6-14.6); Red Blood Count 3.49 M/mm3 (4.2-5.4); White Blood Count 14.8 K/mm3 (4.4-11.0)
[2019-04-24 18:11] LABS: Bedside Glucose 221 mg/dL (70-110)
[2019-04-24 18:15] LABS: Scan Indicated on CBC? Y/N NO
[2019-04-24] MEDS: Morphine 2 MG/ML Syringe IV (20:21)
[2019-04-24] MEDS: Senna/Docusate Sodium 1 Tablet 2 TABLET PO (22:27)
[2019-04-24 22:46] LABS: Bedside Glucose 227 mg/dL (70-110)
[2019-04-25] VITALS (14 sets, daily range): BP systolic 92–130; BP diastolic 51–84; PULSE 85–102; RESP 12–22; TEMP 36.4–37.4; O2SAT 92–99
[2019-04-25] MEDS: Morphine 2 MG/ML Syringe IV ×3 (02:01→12:56)
[2019-04-25 03:56] LABS: Hematocrit 27.8 % (37-47); Mean Corp Hgb Conc 32.4 g/gl (32-36); Mean Corpuscular Hgb 29.1 pg (27.0-32.0); Platelet Count 282 K/mm3 (150-450); RBC Distribution Width CV 13.5 % (11.6-14.6); RBC Distribution Width SD 43.8 fl (35.1-43.9); Red Blood Count 3.09 M/mm3 (4.2-5.4); White Blood Count 14.7 K/mm3 (4.4-11.0)
[2019-04-25 03:58] LABS: Differential Indicated MANUAL DIFF; POSITIVE COUNT YES; POSITIVE DIFFERENTIAL NO; POSITIVE MORPHOLOGY YES
[2019-04-25 04:10] LABS: Anion Gap 8 (5-15); BUN 7 mg/dL (7-18); BUN/Creat Ratio 23.3 RATIO (10-20); Calcium,Total 7.9 mg/dL (8.5-10.1); Chloride 103 mmol/L (98-107); EST Glomerular Filtration Rate 266 mL/min (>60); Est Glom Filt Rate - Afr Amer 321 mL/min (>60); Estimated Creatinine Clearance 240.36 ml/min; Glucose 155 mg/dL (74-106); Potassium 3.6 mmol/L (3.5-5.1); Prealbumin 4.5 mg/dL (20.0-40.0); Sodium Level 141 mmol/L (136-145)
[2019-04-25] MEDS: 0.9% NaCl Peripheral Flush Adult/Peds IV ×2 (04:53→07:56)
[2019-04-25 05:14] LABS: Anisocytosis 1+; Eosinophil 2 % (0-5); Hypochromasia 1+; Lymphocyte 13 % (19-41); Metamyelocyte 3 % (0-1); Monocyte 2 % (0-10); Neutrophil-Band 4 % (0-5); Neutrophil-Segmented 76 % (47-70); Platelet Estimate ADEQUATE (ADEQ); Platelet Morphology LARGE; Total Cells Counted 100 (MANUAL DIFF)
[2019-04-25 05:15] LABS: Microcytosis 1+; Polychromasia RARE
[2019-04-25 05:17] LABS: Absolute Lymphocyte Count 1.91 X10^3/ul (0.83-4.51); Absolute Neutrophil Count 11.8 X10^3/uL (2.0-7.7)
[2019-04-25] MEDS: oxyCODONE 5 MG Tablet PO (06:17)
[2019-04-25] MEDS: Enoxaparin 30 MG/0.3 ML Syringe SC (06:20)
[2019-04-25 06:35] LABS: Bedside Glucose 173 mg/dL (70-110)
[2019-04-25] MEDS: Insulin Lispro 100 UNIT/ML INSULN.PEN SC ×3 (07:52→12:21)
[2019-04-25] MEDS: 0.9% Normal Saline 1,000 ML 100 ML IV (07:53)
[2019-04-25] MEDS: metroNIDAZOLE 500 MG/100 ML BAG 100 MG IV (07:54)
[2019-04-25] MEDS: LORazepam 2 MG/ML Syringe 1 MG IV (07:59)
[2019-04-25] MEDS: morphine 10 MG/ML Syringe 6 MG IV (07:59)
[2019-04-25] MEDS: Morphine 4 MG/ML Syringe IV (08:22)
--- NOTE | 2019-04-25 09:20 | CASEMGMT ---
SW spoke w/pt's mother, then pt in room in regard to financial concerns. SW explained to pt's mother and then to pt that she should follow up with her human resources department in regard to looking into disability, and to see if there is any paperwork she would need to complete. Pt is very sleepy, though she seems to understand. Pt's mother also states understanding. Pt's mother is hopeful to speak w/the physician today, SW explained will speak w/physician in regard to speaking w/pt and mother. SW will follow up shortly w/physician to speak w/pt and family when able. JUVE Brady
--- NOTE | 2019-04-25 09:20 | NURSING ---
wound photo: right buttock/chang anal
--- NOTE | 2019-04-25 09:21 | NURSING ---
wound photo: right medial thigh/perineal
--- NOTE | 2019-04-25 09:21 | CASEMGMT ---
Transfer review for [facility] facilities if transfer is recommended. Burn Centers: [facility], [facility] (accepts adults), [facility], [facility], [facility], [facility], [facility], [facility], [facility]
--- NOTE | 2019-04-25 09:29 | CASEMGMT ---
JOE participated in ICU rounds this morning. JOE spoke w/Tessy, the custodialhospice home health aide([phone]). She states that the pt will be able to return to the custodial, and that they are training the staff on how to manage a colostomy now. JOE asked Tessy to fax over the guardianship papers, she states will do so along with a living will. JOE will continue to follow for discharge planning needs. UJVE Brady
[2019-04-25] MEDS: Multivitamins,Therapeutic Tablet 1 TABLET PO (09:36)
[2019-04-25] MEDS: Ascorbic Acid 500 MG Tablet PO (09:37)
[2019-04-25 09:50] LABS: Pathologist Review Reviewed
--- NOTE | 2019-04-25 10:01 | PCM.PN.SRG ---
Patient Problems: Active and Suspected Problems Acute right gluteal cellulitis (Acute) Subjective: feeling better - Physical Exam General: Alert, Oriented x3, Cooperative Lungs: Clear to auscultation, Normal air movement Cardiovascular: Regular rate, No murmurs Abdomen: Bowel Sounds Present, Soft Extremities: - - dressing in place, patient requests not to exam wound Vital Signs Temp Pulse Resp BP Pulse Ox 99.4 F H 89 20 H 92/63 94 04/25/19 00:00 04/25/19 06:00 04/25/19 06:00 04/25/19 06:00 04/25/19 06:00 Oxygen Flow Rate (L/min) 2 Oxygen Delivery Method Nasal Cannula Weight: 97.5 kg Body Mass Index (BMI) 33.3 Finger Stick Blood Glucose 320 Intake and Output for Last 24 Hours 04/23/19 04/24/19 04/25/19 23:59 23:59 23:59 Intake Total 5311.3 / 5311.3 1441 / 2421 2117 / 2117 Output Total 1400 / 1400 650 / 1150 950 / 950 Balance 3911.3 / 3911.3 791 / 1271 1167 / 1167 Microbiology Past 72 Hours 04/22/19 18:29 Blood Culture - Preliminary Blood Culture (Wb) - Anticubital Left No growth in 48 hours. 04/22/19 18:17 Blood Culture - Preliminary Blood Culture (Wb) - Left Hand No growth in 48 hours. 04/22/19 22:58 Gram Stain - Final Wound Abcess - Aerobic & Anaerobic Swabs Wound Culture - Preliminary Mixed Gram Positive Organisms 04/22/19 22:58 Gram Stain - Final Aspirate - Buttock Wound Culture - Preliminary Mixed Gram Positive Organisms Laboratory Tests Past 24 Hrs 04/24/19 04/24/19 04/24/19 05:55 17:50 17:50 WBC 14.8 H RBC 3.49 L Hgb 10.1 L Hct 31.5 L MCV 90.3 MCH 28.9 MCHC 32.1 RDW 13.5 RDW Differential 44.0 H Plt Count 302 MPV 11.6 Neut % (Auto) Absolute Neuts (auto) Absolute Lymphs (auto) Total Counted Neutrophils % (Manual) Band Neutrophils % Lymphocytes % (Manual) Monocytes % (Manual) Eosinophils % (Manual) Metamyelocytes % Diff Path Review Reviewed Platelet Estimate Plt Morphology Comment Polychromasia Hypochromasia Anisocytosis Microcytosis Sodium Potassium Chloride Carbon Dioxide Anion Gap BUN Creatinine Estim Creat Clear Calc Est GFR (MDRD) Af Amer Est GFR (MDRD) Non-Af BUN/Creatinine Ratio Glucose Calcium Prealbumin Blood Type O NEGATIVE Antibody Screen TNP Antigen Identification Crossmatch See Detail 04/24/19 04/24/19 04/24/19 17:50 17:50 17:50 WBC RBC Hgb Hct MCV MCH MCHC RDW RDW Differential Plt Count MPV Neut % (Auto) Absolute Neuts (auto) Absolute Lymphs (auto) Total Counted Neutrophils % (Manual) Band Neutrophils % Lymphocytes % (Manual) Monocytes % (Manual) Eosinophils % (Manual) Metamyelocytes % Diff Path Review Platelet Estimate Plt Morphology Comment Polychromasia Hypochromasia Anisocytosis Microcytosis Sodium Potassium Chloride Carbon Dioxide Anion Gap BUN Creatinine Estim Creat Clear Calc Est GFR (MDRD) Af Amer Est GFR (MDRD) Non-Af BUN/Creatinine Ratio Glucose Calcium Prealbumin Blood Type Antibody Screen NEGATIVE Antigen Identification C ANTIGEN - NEGATIVE Jka ANTIGEN - POSITIVE Crossmatch 04/25/19 04/25/19 03:40 03:40 WBC 14.7 H RBC 3.09 L Hgb 9.0 L Hct 27.8 L MCV 90.0 MCH 29.1 MCHC 32.4 RDW 13.5 RDW Differential 43.8 Plt Count 282 MPV 11.0 Neut % (Auto) Not Reportable Absolute Neuts (auto) 11.8 H Absolute Lymphs (auto) 1.91 Total Counted 100 Neutrophils % (Manual) 76 H Band Neutrophils % 4 Lymphocytes % (Manual) 13 L Monocytes % (Manual) 2 Eosinophils % (Manual) 2 Metamyelocytes % 3 H Diff Path Review May foll Platelet Estimate ADEQUATE Plt Morphology Comment LARGE Polychromasia RARE Hypochromasia 1+ Anisocytosis 1+ Microcytosis 1+ Sodium 141 Potassium 3.6 Chloride 103 Carbon Dioxide 30.0 Anion Gap 8 BUN 7 Creatinine 0.30 L Estim Creat Clear Calc 240.36 Est GFR (MDRD) Af Amer 321 Est GFR (MDRD) Non-Af 266 BUN/Creatinine Ratio 23.3 H Glucose 155 H Calcium 7.9 L Prealbumin 4.5 L Blood Type Antibody Screen Antigen Identification Crossmatch POC Glucose 07/03/19 07/02/19 07/02/19 06:29 22:29 17:48 POC Glucose 173 H 227 H 221 H 04/24/19 11:07 POC Glucose 208 H Medical Necessity - Tobacco Use Smoking Status: Current every day smoker Tobacco Use: Cigarettes Assessment/Plan All Active Problems Acute right gluteal cellulitis (Acute) POD #3 & 1 s/p wide debridement for necrotizing fasciitis from right bottock/right labia and inner thigh I performed OR exploration wide debridement. Dr. Parker consulted for continued wound evaluation/debridement. Dr Parker noted area seemed well debrided on initially POD 1. He reevaluated the wound yesterday and decided to return to OR. performed much wider reexcision. He will assess today to decide if patinet should be transferred to a tertiary care center we'll plan for broad-spectrum antibiotics-Zosyn and vancomycin. ID consult noted. await cultures Patient's blood glucoses will be monitored and she will placed on a sliding scale. Patient with oral thursh - started nystatin QID - notes significant improvement in mouth discomfort
[2019-04-25 10:03] LABS: Pathologist Review Reviewed
[2019-04-25] MEDS: Glucerna Shake 120 ML LIQUID PO (10:18)
[2019-04-25] MEDS: NYSTATIN 500,000 UNIT/5 ML UDC 500000 UNIT PO (10:18)
--- NOTE | 2019-04-25 10:50 | PCM.DC.SUM ---
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 poor dentition with multiple missing and broken off teeth Borderline personality disorder Hospital Course and Treatment Imaging Results: Clinical Impression(s) from Imaging Studies Pelvis CT 04/22/19 18:14 IMPRESSION: Extensive cellulitis of the inferior right buttock soft tissues extending into the proximal medial thigh, perineum and right labia. Without abscess. Associated with mild lymphadenopathy. Electronically Signed: Bryce Macedo MD at 19:27 EDT Tel , Service support , Chest X-Ray 04/23/19 07:41 IMPRESSION: Lucent airspace projecting over the left hilum of uncertain significance. Bandlike opacities left lung base which may reflect infiltrate, scar or atelectasis. CT chest recommended. Electronically Signed: Bryce Macedo MD at 12:02 EDT Tel , Service support , Laboratory Results - last 24 hr 04/23/19 04/24/19 04/24/19 05:32 05:55 11:07 WBC RBC Hgb Hct MCV MCH MCHC RDW RDW Differential Plt Count MPV Neut % (Auto) Absolute Neuts (auto) Absolute Lymphs (auto) Total Counted Neutrophils % (Manual) Band Neutrophils % Lymphocytes % (Manual) Monocytes % (Manual) Eosinophils % (Manual) Metamyelocytes % Diff Path Review Reviewed Reviewed Platelet Estimate Plt Morphology Comment Polychromasia Hypochromasia Anisocytosis Microcytosis Sodium Potassium Chloride Carbon Dioxide Anion Gap BUN Creatinine Estim Creat Clear Calc Est GFR (MDRD) Af Amer Est GFR (MDRD) Non-Af BUN/Creatinine Ratio Glucose Calcium Prealbumin POC Glucose 208 H Blood Type Antibody Screen Antigen Identification Crossmatch 04/24/19 04/24/19 04/24/19 17:48 17:50 17:50 WBC 14.8 H RBC 3.49 L Hgb 10.1 L Hct 31.5 L MCV 90.3 MCH 28.9 MCHC 32.1 RDW 13.5 RDW Differential 44.0 H Plt Count 302 MPV 11.6 Neut % (Auto) Absolute Neuts (auto) Absolute Lymphs (auto) Total Counted Neutrophils % (Manual) Band Neutrophils % Lymphocytes % (Manual) Monocytes % (Manual) Eosinophils % (Manual) Metamyelocytes % Diff Path Review Platelet Estimate Plt Morphology Comment Polychromasia Hypochromasia Anisocytosis Microcytosis Sodium Potassium Chloride Carbon Dioxide Anion Gap BUN Creatinine Estim Creat Clear Calc Est GFR (MDRD) Af Amer Est GFR (MDRD) Non-Af BUN/Creatinine Ratio Glucose Calcium Prealbumin POC Glucose 221 H Blood Type O NEGATIVE Antibody Screen TNP Antigen Identification Crossmatch See Detail 04/24/19 04/24/19 04/24/19 17:50 17:50 17:50 WBC RBC Hgb Hct MCV MCH MCHC RDW RDW Differential Plt Count MPV Neut % (Auto) Absolute Neuts (auto) Absolute Lymphs (auto) Total Counted Neutrophils % (Manual) Band Neutrophils % Lymphocytes % (Manual) Monocytes % (Manual) Eosinophils % (Manual) Metamyelocytes % Diff Path Review Platelet Estimate Plt Morphology Comment Polychromasia Hypochromasia Anisocytosis Microcytosis Sodium Potassium Chloride Carbon Dioxide Anion Gap BUN Creatinine Estim Creat Clear Calc Est GFR (MDRD) Af Amer Est GFR (MDRD) Non-Af BUN/Creatinine Ratio Glucose Calcium Prealbumin POC Glucose Blood Type Antibody Screen NEGATIVE Antigen Identification C ANTIGEN - NEGATIVE Jka ANTIGEN - POSITIVE Crossmatch 04/24/19 04/25/19 04/25/19 22:29 03:40 03:40 WBC 14.7 H RBC 3.09 L Hgb 9.0 L Hct 27.8 L MCV 90.0 MCH 29.1 MCHC 32.4 RDW 13.5 RDW Differential 43.8 Plt Count 282 MPV 11.0 Neut % (Auto) Not Reportable Absolute Neuts (auto) 11.8 H Absolute Lymphs (auto) 1.91 Total Counted 100 Neutrophils % (Manual) 76 H Band Neutrophils % 4 Lymphocytes % (Manual) 13 L Monocytes % (Manual) 2 Eosinophils % (Manual) 2 Metamyelocytes % 3 H Diff Path Review May foll Platelet Estimate ADEQUATE Plt Morphology Comment LARGE Polychromasia RARE Hypochromasia 1+ Anisocytosis 1+ Microcytosis 1+ Sodium 141 Potassium 3.6 Chloride 103 Carbon Dioxide 30.0 Anion Gap 8 BUN 7 Creatinine 0.30 L Estim Creat Clear Calc 240.36 Est GFR (MDRD) Af Amer 321 Est GFR (MDRD) Non-Af 266 BUN/Creatinine Ratio 23.3 H Glucose 155 H Calcium 7.9 L Prealbumin 4.5 L POC Glucose 227 H Blood Type Antibody Screen Antigen Identification Crossmatch 04/25/19 06:29 WBC RBC Hgb Hct MCV MCH MCHC RDW RDW Differential Plt Count MPV Neut % (Auto) Absolute Neuts (auto) Absolute Lymphs (auto) Total Counted Neutrophils % (Manual) Band Neutrophils % Lymphocytes % (Manual) Monocytes % (Manual) Eosinophils % (Manual) Metamyelocytes % Diff Path Review Platelet Estimate Plt Morphology Comment Polychromasia Hypochromasia Anisocytosis Microcytosis Sodium Potassium Chloride Carbon Dioxide Anion Gap BUN Creatinine Estim Creat Clear Calc Est GFR (MDRD) Af Amer Est GFR (MDRD) Non-Af BUN/Creatinine Ratio Glucose Calcium Prealbumin POC Glucose 173 H Blood Type Antibody Screen Antigen Identification Crossmatch Microbiology 04/22/19 22:58 Wound Abcess - Aerobic & Anaerobic Swabs Gram Stain - Final 04/22/19 22:58 Wound Abcess - Aerobic & Anaerobic Swabs Wound Culture - Preliminary Gram positive rebecca Gram positive rebecca#2 Staphylococcus species GPC Poss Enterococcus sp Yeast Like Organism 04/22/19 22:58 Aspirate - Buttock Gram Stain - Final 04/22/19 22:58 Aspirate - Buttock Wound Culture - Preliminary Gram positive rebecca Gram positive rebecca#2 GPC Poss Enterococcus sp Gram positive organism Staphylococcus species Yeast Like Organism 04/22/19 18:29 Blood Culture (Wb) - Anticubital Left Blood Culture - Preliminary No growth in 48 hours. 04/22/19 18:17 Blood Culture (Wb) - Left Hand Blood Culture - Preliminary No growth in 48 hours. Consultations 04/22/19 23:09 Consult: Onc/Wound/induction furnace operator Routine Comment: Dr. Bryce Huynh-F general surgery Dr. Jaspreet Parker-plastic surgery Dr. Leif House and Dr. Greg Garcia-infectious disease Dr. Lv Ward-senior web engineer Operations: - - I&D and debridement of all devitalized tiisue on 04/[address] Bryce Huynh and on 04/24/[address] Jaspreet Parker Procedures: None Summary of Care Provided: The patient is a 38-year-old female with a past medical history of asthma, diabetes mellitus type 2, borderline personality disorder, tobacco dependence and morbid obesity who presented to the emergency room complaining of worsening pain and drainage from a right buttock infection. She had previously been seen in the emergency room 9 days prior and was placed on Bactrim and Keflex. A CT scan of the pelvis without contrast showed extensive cellulitis of the inferior right buttock extending to the proximal medial thigh, perineum and right labia without abscess formation. Zosyn and vancomycin were administered in the emergency department. White blood cell count was increased at 19 with a left shift. Hemoglobin and platelets were within normal limits. Sodium was low at 130 but the remainder of the electrolytes were unremarkable. BUN was 11 and the creatinine was 0.61. Hemoglobin A1c was 11.6. Serum was negative. Drainage from the wound was negative for staph aureus and MRSA. She was taken to surgery by Dr. Huynh on 04/22 for debridement of necrotizing fasciitis of the right buttock, perineum, labia and thigh. Dr. Jaspreet Parker was consulted for further debridement. At 10 PM on 04/23/2019 she spiked a temperature to 100.6 ?F. She was taken back to the OR on 04/24/[address] Parker who performed surgical preparation right gluteal, perianal (involving muscular sphincter), perineal, medial thigh, and vulval (mons pubis and genitocrural area extending to vaginal mucosa) areas (500 cm2) with incision and drainage and excisional debridement necrotizing diabetic infection with partial vulvectomy (including deep subcutaneous tissue). The size of the defect postoperatively was 20 x 25 x 5 cm. The estimated blood loss was 750 cc. She was transferred to the intensive care unit following the procedure. Dr. Garcia recommended adding Clindamycin if she had necrosis at the time of the second surgery. She is allergic to Clindamycin and gets hives. She was started on Flagyl instead. On 04/25/2019 the T-max was 99.4. Vital signs were stable with a blood pressure of 92/63 following pain medication...... prior to pain medication the blood pressure was 109/58 with a heart rate of 91. She was 94 to 97% saturated on a 2 L nasal cannula. The dressing was changed by the wound care nurse and Dr. Parker and I observed. The debridement is extensive and the Vascular bundle in the femoral area is close to being exposed. There are some dark areas due to cautery and fat necrosis and I suspect she will need further debridement. There was no obvious pus and no odor. Culture results from admission are growing 2 gram-positive rods, a Staphylococcus species, possible enterococcus species and a yeastlike organism. Dr. Parker related to me that if she needed further debridement he would not be able to do it secondary to the proximity of the debridement to the anal sphincter and the femoral vascular bundle. She will need a diverting colostomy. He recommended transfer to a burn unit because she will require extensive dressing changes and excellent wound care. I contacted [facility] and spoke to Dr. Jaspal Lambert who accepted the patient in transfer. PHYSICAL EXAM: GENERAL: alert, oriented X 3, Cooperative ORAL: moist mucosa, tongue is coated but the thrush is improving. Very poor dentition with multiple missing teeth and broken teeth. NECK: No JVD, supple, trachea midline LUNGS: CTA, symmetric chest expansion, diminished....recently medicated with MS and Ativan for the dressing change HEART: RRR, Normal S1 and S2, no rub, no gallop, no murmur ABDOMEN: soft, NT, ND, BS present, no guarding with palpation EXTREMITIES: no edema, no cyanosis, no calf tenderness SKIN: please see the disscussion above for the description of the wound NEUROLOGIC: no focal neurologic deficits PSYCH: appropriate This note was generated with [employer] dictation software. It may contain incorrect words, spelling, and punctuation that were not noted in checking the note before signing. Patient Problems: Active and Suspected Problems Acute right gluteal cellulitis (Acute) - Physical Exam Vital Signs Temp Pulse Resp BP Pulse Ox 99.4 F H 89 20 H 92/63 94 04/25/19 00:00 04/25/19 06:00 04/25/19 06:00 04/25/19 06:00 04/25/19 06:00 Oxygen Flow Rate (L/min) 2 Oxygen Delivery Method Nasal Cannula Weight: 214 lb 15.211 oz Body Mass Index (BMI) 33.3 Finger Stick Blood Glucose 320 Intake and Output for Last 24 Hours 04/23/19 04/24/19 04/25/19 23:59 23:59 23:59 Intake Total 5311.3 / 5311.3 1441 / 2421 2117 / 2117 Output Total 1400 / 1400 650 / 1150 950 / 950 Balance 3911.3 / 3911.3 791 / 1271 1167 / 1167 Microbiology Past 72 Hours 04/22/19 18:29 Blood Culture - Preliminary Blood Culture (Wb) - Anticubital Left No growth in 48 hours. 04/22/19 18:17 Blood Culture - Preliminary Blood Culture (Wb) - Left Hand No growth in 48 hours. 04/22/19 22:58 Gram Stain - Final Wound Abcess - Aerobic & Anaerobic Swabs Wound Culture - Preliminary Mixed Gram Positive Organisms 04/22/19 22:58 Gram Stain - Final Aspirate - Buttock Wound Culture - Preliminary Mixed Gram Positive Organisms Laboratory Tests Past 24 Hrs 04/23/19 04/24/19 04/24/19 05:32 05:55 17:50 WBC 14.8 H RBC 3.49 L Hgb 10.1 L Hct 31.5 L MCV 90.3 MCH 28.9 MCHC 32.1 RDW 13.5 RDW Differential 44.0 H Plt Count 302 MPV 11.6 Neut % (Auto) Absolute Neuts (auto) Absolute Lymphs (auto) Total Counted Neutrophils % (Manual) Band Neutrophils % Lymphocytes % (Manual) Monocytes % (Manual) Eosinophils % (Manual) Metamyelocytes % Diff Path Review Reviewed Reviewed Platelet Estimate Plt Morphology Comment Polychromasia Hypochromasia Anisocytosis Microcytosis Sodium Potassium Chloride Carbon Dioxide Anion Gap BUN Creatinine Estim Creat Clear Calc Est GFR (MDRD) Af Amer Est GFR (MDRD) Non-Af BUN/Creatinine Ratio Glucose Calcium Prealbumin Blood Type Antibody Screen Antigen Identification Crossmatch 04/24/19 04/24/19 04/24/19 17:50 17:50 17:50 WBC RBC Hgb Hct MCV MCH MCHC RDW RDW Differential Plt Count MPV Neut % (Auto) Absolute Neuts (auto) Absolute Lymphs (auto) Total Counted Neutrophils % (Manual) Band Neutrophils % Lymphocytes % (Manual) Monocytes % (Manual) Eosinophils % (Manual) Metamyelocytes % Diff Path Review Platelet Estimate Plt Morphology Comment Polychromasia Hypochromasia Anisocytosis Microcytosis Sodium Potassium Chloride Carbon Dioxide Anion Gap BUN Creatinine Estim Creat Clear Calc Est GFR (MDRD) Af Amer Est GFR (MDRD) Non-Af BUN/Creatinine Ratio Glucose Calcium Prealbumin Blood Type O NEGATIVE Antibody Screen TNP NEGATIVE Antigen Identification C ANTIGEN - NEGATIVE Crossmatch See Detail 04/24/19 04/25/19 04/25/19 17:50 03:40 03:40 WBC 14.7 H RBC 3.09 L Hgb 9.0 L Hct 27.8 L MCV 90.0 MCH 29.1 MCHC 32.4 RDW 13.5 RDW Differential 43.8 Plt Count 282 MPV 11.0 Neut % (Auto) Not Reportable Absolute Neuts (auto) 11.8 H Absolute Lymphs (auto) 1.91 Total Counted 100 Neutrophils % (Manual) 76 H Band Neutrophils % 4 Lymphocytes % (Manual) 13 L Monocytes % (Manual) 2 Eosinophils % (Manual) 2 Metamyelocytes % 3 H Diff Path Review May foll Platelet Estimate ADEQUATE Plt Morphology Comment LARGE Polychromasia RARE Hypochromasia 1+ Anisocytosis 1+ Microcytosis 1+ Sodium 141 Potassium 3.6 Chloride 103 Carbon Dioxide 30.0 Anion Gap 8 BUN 7 Creatinine 0.30 L Estim Creat Clear Calc 240.36 Est GFR (MDRD) Af Amer 321 Est GFR (MDRD) Non-Af 266 BUN/Creatinine Ratio 23.3 H Glucose 155 H Calcium 7.9 L Prealbumin 4.5 L Blood Type Antibody Screen Antigen Identification Jka ANTIGEN - POSITIVE Crossmatch POC Glucose 04/25/19 04/24/19 04/24/19 06:29 22:29 17:48 POC Glucose 173 H 227 H 221 H 04/24/19 11:07 POC Glucose 208 H Home Medications: Medications to take at Discharge Glipizide 10 mg PO DAILY #60 tab 08/23/18 Metformin HCl 1,000 mg PO BID #60 tab 08/23/18 Cephalexin [Keflex] 500 mg PO Q6 #40 cap 04/16/19 Insulin NPH Human Isophane [Novolin N] 10 units SQ BID 04/16/19 Smz/Tmp Ds [Bactrim Ds] 1 tab PO BID #14 tab 04/16/19 Primary Care Physician: Yusra Connors NP-C [Primary Care Provider] - Disposition: Acute care Hospital - [facility] burn unit Minutes spent on discharge:: 45 Patient Condition:: Guarded Medical Necessity - Tobacco Use Smoking Status: Current every day smoker Tobacco Use: Cigarettes Meaningful Use Info Meaningful Use Diagnoses (Choose all that apply): None applicable Code Visit Inpatient E&M: 20691 Disch Hosp
--- NOTE | 2019-04-25 11:16 | NURSING ---
Discussed patient with Dr Dumont who decided to transfer patient to [place]. States she already talked with the doctor up there and they accepted pt. wound photos printed and will be sent with patient.
--- NOTE | 2019-04-25 11:17 | PN.SURG_ITS ---
Subjective: Postop #1 Patient complains of pain in her large operative wound. She was given IV analgesia for the dressing change and tolerated it reasonably well. We are planning Dana's dressing changes later today. - Physical Exam General: Alert, Oriented x3 HEENT: PERRLA, EOMI Oral: Moist Mucosa Neck: Supple Abdomen: Soft, Non-Distended Extremities: Edema - mild edema right thigh. Skin: Ulcer/ Wound - Large wound involving the right gluteal, perineal, perianal, mid thigh, and vulval areas. No evidence of progression of her necrotizing process. Will need to observe closely. Neurological: Cranial nerves II-XII grossly intact Psych/Mental Status: Normal Affect Vital Signs Temp Pulse Resp BP Pulse Ox 99.4 F H 89 20 H 92/63 97 04/25/19 00:00 04/25/19 06:00 04/25/19 06:00 04/25/19 06:00 04/25/19 07:00 Oxygen Flow Rate (L/min) 3 Oxygen Delivery Method Nasal Cannula Weight: 214 lb 15.211 oz Body Mass Index (BMI) 33.3 Finger Stick Blood Glucose 320 Intake and Output for Last 24 Hours 04/23/19 04/24/19 04/25/19 23:59 23:59 23:59 Intake Total 5311.3 / 5311.3 1441 / 2421 2117 / 2117 Output Total 1400 / 1400 650 / 1150 950 / 950 Balance 3911.3 / 3911.3 791 / 1271 1167 / 1167 Microbiology Past 72 Hours 04/22/19 18:29 Blood Culture - Preliminary Blood Culture (Wb) - Anticubital Left No growth in 48 hours. 04/22/19 18:17 Blood Culture - Preliminary Blood Culture (Wb) - Left Hand No growth in 48 hours. 04/22/19 22:58 Gram Stain - Final Wound Abcess - Aerobic & Anaerobic Swabs Wound Culture - Preliminary Mixed Gram Positive Organisms 04/22/19 22:58 Gram Stain - Final Aspirate - Buttock Wound Culture - Preliminary Mixed Gram Positive Organisms Laboratory Tests Past 24 Hrs 04/23/19 04/24/19 04/24/19 05:32 05:55 17:50 WBC 14.8 H RBC 3.49 L Hgb 10.1 L Hct 31.5 L MCV 90.3 MCH 28.9 MCHC 32.1 RDW 13.5 RDW Differential 44.0 H Plt Count 302 MPV 11.6 Neut % (Auto) Absolute Neuts (auto) Absolute Lymphs (auto) Total Counted Neutrophils % (Manual) Band Neutrophils % Lymphocytes % (Manual) Monocytes % (Manual) Eosinophils % (Manual) Metamyelocytes % Diff Path Review Reviewed Reviewed Platelet Estimate Plt Morphology Comment Polychromasia Hypochromasia Anisocytosis Microcytosis Sodium Potassium Chloride Carbon Dioxide Anion Gap BUN Creatinine Estim Creat Clear Calc Est GFR (MDRD) Af Amer Est GFR (MDRD) Non-Af BUN/Creatinine Ratio Glucose Calcium Prealbumin Blood Type Antibody Screen Antigen Identification Crossmatch 04/24/19 04/24/19 04/24/19 17:50 17:50 17:50 WBC RBC Hgb Hct MCV MCH MCHC RDW RDW Differential Plt Count MPV Neut % (Auto) Absolute Neuts (auto) Absolute Lymphs (auto) Total Counted Neutrophils % (Manual) Band Neutrophils % Lymphocytes % (Manual) Monocytes % (Manual) Eosinophils % (Manual) Metamyelocytes % Diff Path Review Platelet Estimate Plt Morphology Comment Polychromasia Hypochromasia Anisocytosis Microcytosis Sodium Potassium Chloride Carbon Dioxide Anion Gap BUN Creatinine Estim Creat Clear Calc Est GFR (MDRD) Af Amer Est GFR (MDRD) Non-Af BUN/Creatinine Ratio Glucose Calcium Prealbumin Blood Type O NEGATIVE Antibody Screen TNP NEGATIVE Antigen Identification C ANTIGEN - NEGATIVE Crossmatch See Detail 04/24/19 04/25/19 04/25/19 17:50 03:40 03:40 WBC 14.7 H RBC 3.09 L Hgb 9.0 L Hct 27.8 L MCV 90.0 MCH 29.1 MCHC 32.4 RDW 13.5 RDW Differential 43.8 Plt Count 282 MPV 11.0 Neut % (Auto) Not Reportable Absolute Neuts (auto) 11.8 H Absolute Lymphs (auto) 1.91 Total Counted 100 Neutrophils % (Manual) 76 H Band Neutrophils % 4 Lymphocytes % (Manual) 13 L Monocytes % (Manual) 2 Eosinophils % (Manual) 2 Metamyelocytes % 3 H Diff Path Review May foll Platelet Estimate ADEQUATE Plt Morphology Comment LARGE Polychromasia RARE Hypochromasia 1+ Anisocytosis 1+ Microcytosis 1+ Sodium 141 Potassium 3.6 Chloride 103 Carbon Dioxide 30.0 Anion Gap 8 BUN 7 Creatinine 0.30 L Estim Creat Clear Calc 240.36 Est GFR (MDRD) Af Amer 321 Est GFR (MDRD) Non-Af 266 BUN/Creatinine Ratio 23.3 H Glucose 155 H Calcium 7.9 L Prealbumin 4.5 L Blood Type Antibody Screen Antigen Identification Jka ANTIGEN - POSITIVE Crossmatch POC Glucose 04/25/19 04/24/19 04/24/19 06:29 22:29 17:48 POC Glucose 173 H 227 H 221 H 04/24/19 11:07 POC Glucose 208 H Medical Necessity - Tobacco Use Smoking Status: Current every day smoker Tobacco Use: Cigarettes Assessment/Plan All Active Problems Necrotizing fasciitis of pelvic region and thigh (Acute) Complicated open wound of right thigh (Acute) Open wound of vulva with complication (Acute) Open wound of right buttock with complication (Acute) Necrotizing soft tissue infection (Acute) Acute right gluteal cellulitis (Acute) 1. Necrotizing diabetes infection right gluteal, perineal, medial thigh, and vulval areas, clinically worsening. 2. s/p debridement of necrotizing fasciitis - right buttock, perineum, labia, thigh. 3. Diabetes mellitus. 4. Smoker. 5. s/p surgical preparation right gluteal, perianal (involving muscular sphincter), perineal, medial thigh, and vulval (mons pubis and genitocrural area extending to vaginal mucosa) areas (500 cm2) with incision and drainage and excisional debridement necrotizing diabetic infection and partial vulvectomy (including deep subcutaneous tissue). 6. Anemia of chronic disease, acute on chronic. The wound is clinically stable at this time. No progression of the necrotizing process noted. Will need to observe closely. Tolerated the dressing change with IV analgesia reasonably well today. Depending on how large the wound is after surgery today, she may need to be transferred to a tertiary Burn Center for more aggressive wound care with the [facility] and for better control of her pain since increased doses of IV analgesia can be given. Continue Vancomycin and Zosyn. Operative culture pending thus far. MRSA Wound DNA by PCR was negative. Anticipate increased metabolic demands from the infection and the large wound. Prealbumin was 3.4. Encourage nutritional supplementation with protein to help the healing process. The wound is close to the anal opening. Will need to take a shower after each bowel movement to minimize stool contamination in the wound. She will need a diverting colostomy would be necessary. After discharge, can followup at the Wound Center. If there is a plateau in the healing process, can proceed with delayed closure with skin grafting. Encouraged patient to stop smoking as it may have deleterious effects on wound healing. Discussed with the patient that poorly controlled diabetes (HgbA1c 11.6) increases the risk of potentially life threatening infections. She will see her PCP more frequently in the future to work on better diabetes control. She has anemia of chronic disease. Hgb decreased from 10.1 to 9.0. She had 750 ml of blood loss during her urgent surgery yesterday. Will continue to monitor. Will recheck daily. If it drifts down closer to 8, will need PRBC transfusion. Since there is the possibility over the next day or two that further operative debridement may be necessary. If so, evaluation by Gynecological Oncology would be necessary as well as the possibility of an amputation which can be quite bloody at the hip. Also the large size of the wound necessitates more complex wound care then can be provided at a small [facility]. Being transferred to a tertiary Burn Center will allow higher doses of IV Morphine and allow more aggressive whirlpool therapy to help keep this large wound clean during the healing process.
[2019-04-25 12:21] LABS: Bedside Glucose 193 mg/dL (70-110)
[2019-04-25 14:34] LABS: Pathologist Review Reviewed
== END 2019-04-25 13:05 | disposition designated cancer center or children's hospital (05) | DRG 463 ==
LOC: ED 19:20 → AC 20:21 → SDC 20:26 → MS3 21:44 → SDC 04-24 07:46 → MS3 04-24 11:27 → ICU 04-24 15:27
PROVIDERS: Surgery; Admitting Provider Hospitalist; Emergency Provider Emergency Medicine; Family Provider Nurse Practitioner Primary Care; PCP Nurse Practitioner Primary Care; Referring Provider Surgery; Visit Provider Internal Medicine
PROC: 0JBL0ZZ Excision of Right Upper Leg Subcutaneous Tissue and Fascia, Open Approach (ICD-10-PCS; CPT 46040; principal; 2019-04-22 20:45)
PROC: 0UBM0ZZ Excision of Vulva, Open Approach (ICD-10-PCS; principal; 2019-04-24 12:00)
DX: M72.6 Necrotizing fasciitis (principal); J18.9 Pneumonia, unspecified organism; B37.0 Candidal stomatitis; D62 Acute posthemorrhagic anemia; J98.11 Atelectasis; E11.65 Type 2 diabetes mellitus with hyperglycemia; J45.909 Unspecified asthma, uncomplicated; F17.210 Nicotine dependence, cigarettes, uncomplicated; E66.01 Morbid (severe) obesity due to excess calories; N76.89 Other specified inflammation of vagina and vulva; F60.3 Borderline personality disorder; Z68.33 Body mass index [BMI] 33.0-33.9, adult; Z79.4 Long term (current) use of insulin; Z88.1 Allergy status to other antibiotic agents
CPT/HCPCS: 36415; 51702; 71045; 72192; 80048; 80053; 80061; 80076; 80202; 82962; 83036; 83735; 84100; 84134; 84703; 85025; 85027; 86850; 86900; 86902; 86905; 87015; 87040; 87070; 87075; 87077; 87102; 87106; 87116; 87176; 87186; 87205; 87206; 87640; 88304; 88312; 97802; 99285; 99406; J7030; J7040; J7050; A4216; J2405

== ENCOUNTER 2021-03-28 12:38 | Emergency (ER) | payer OTHER, SELFPAY ==
[2019-04-24 11:45] VITALS: BMI 33.3
[2021-03-28 12:40] VITALS: BP 161/94; PULSE 85; RESP 18; TEMP 36.7; O2SAT 98; BMI 30.7
--- NOTE | 2021-03-28 13:04 | EDS_ITS ---
HPI History of Present Illness Chief Complaint: Other, Pain/Inj Detail of Chief Complaint: Bilateral hip pain Informant: patient Onset/Context/Timing Onset: Weeks Context: Gradual Onset Timing: Waxes and wanes Current Severity: Moderate Maximum Severity: Severe Narrative Narrative: Patient presents with a 6-week history of bilateral hip pain that radiates to the left leg greater than right. Patient states that she will leave work after being on her feet for 8 hours in tears secondary to pain. She is having difficulty sleeping and cannot get comfortable. She points to the greater trochanter area of both hips and states the pain goes down her legs. She will note dilated blood vessels in her legs after being on her feet all day. [facility] Medical History Asthma Type 2 diabetes mellitus Home Medications glipizide 10 mg PO DAILY #60 tab 08/23/18 [Rx Last Taken Unknown] metformin 1,000 mg PO BID #60 tab 08/23/18 [Rx Last Taken Unknown] cephalexin 500 mg PO Q6 #40 cap 04/16/19 [Rx Last Taken Unknown] insulin NPH isoph U-100 human 10 units SQ BID 04/16/19 [History Last Taken Unknown] sulfamethoxazole-trimethoprim 1 tab PO BID #14 tab 04/16/19 [Rx Last Taken Unknown] naproxen [Naprosyn] 500 mg PO BID PRN #20 tab 03/28/21 [Rx Last Taken Unknown] prednisone 40 mg PO DAILY #8 tab 03/28/21 [Rx Last Taken Unknown] Allergy/AdvReac Type Severity Reaction Status Date / Time clindamycin Allergy Hives Verified 03/28/21 12:42 Social History Smoking Status: Current every day smoker tobacco type: cigarettes ROS ROS ED Constitutional Constitutional ED: Denies chills or fever(s) Eyes Eyes: Denies change in vision ENT ENT ED: Denies sore throat Cardiovascular Cardiovascular: Denies chest pain Respiratory/Chest Respiratory/Chest: Denies cough or dyspnea Gastrointestinal Gastrointestinal: Denies abdominal pain, diarrhea, nausea or vomiting Genitourinary Genitourinary ED: Denies dysuria Musculoskeletal Musculoskeletal: Reports other Details: Bilateral hip and leg pain ; Denies back pain Integumentary Denies rash Neurologic Neurologic: Denies headache(s) or weakness Psychiatric Psychiatric: Denies anxiety or depression Endocrine Endocrinology: Denies polydipsia or polyuria Allergic/Immunologic Allergic/Immunologic ED: Denies urticaria EXAM Physical Exam Const Vital Signs: 03/28/21 12:40 Temperature 98.0 F Temperature Source Temporal Pulse Rate 85 Respiratory Rate 18 Blood Pressure 161/94 H Blood Pressure Mean 116 Pulse Ox 98 Oxygen Delivery Method Room Air Positive well nourished and well developed General Appearance ED: well developed Eyes PERRL and EOMs intact bilaterally Neck supple Chest Wall inspection of chest normal and palpation of chest normal Resp normal respiratory effort and clear to auscultation bilaterally Cardio regular rate and regular rhythm GI normal to inspection, nondistended, normoactive bowel sounds Palpation: soft Back/Spine no CVA tenderness Back/Spine Narrative: Mild tenderness in the low lumbar paraspinal muscles and over the SI joints of the pelvis. Extremity normal to inspection Extremity Narrative: Mild muscular tenderness of the bilateral calves. No significant edema noted. Strong distal pulses. Neuro oriented x3 and no sensory deficits noted Sensorium / Orientation: alert Motor Exam: strength 5/5 throughout Psych mental status grossly normal Skin no rashes or lesions noted MDM MDM MDM Narrative Medical decision making narrative: Because of the leg cramping electrolytes are obtained. Pelvis and bilateral hip x-rays are obtained. Patient was given Toradol and p.o. prednisone. Lab Data Attestation: I reviewed the patient's lab results. Labs: Laboratory Results - last 24 hr 03/28/21 03/28/21 13:20 13:20 WBC 13.1 H RBC 5.39 Hgb 15.9 H Hct 47.2 H MCV 87.6 MCH 29.5 MCHC 33.7 RDW Std Deviation 41.3 RDW Coeff of Grabiel 12.8 Plt Count 272 MPV 12.0 Immature Gran % (Auto) 0.700 Neut % (Auto) 60.6 Lymph % (Auto) 28.8 Bailey % (Auto) 5.8 Eos % (Auto) 3.4 Baso % (Auto) 0.7 Absolute Neuts (auto) 8.0 H Absolute Lymphs (auto) 3.78 Nucleated RBC % 0 Sodium 135 L Potassium 4.3 Chloride 100 Carbon Dioxide 29.0 Anion Gap 6 BUN 6 L Creatinine 0.70 Estim Creat Clear Calc 101.01 Est GFR (MDRD) Af Amer 119 Est GFR (MDRD) Non-Af 98 BUN/Creatinine Ratio 8.5 L Glucose 339 H Calcium 9.4 Radiography Diagnostic Testing: Radiology Impression Hip/Pelvis X-Ray 03/28/21 14:14 IMPRESSION: No erosive process. No malalignment. Electronically Signed: Yash Hutton MD ([place]) at 14:35 EDT , Service support , Treatment and Re-Evaluation Comments:: Pelvis and hip x-rays are reviewed by myself. Per my interpretation no acute findings. Radiology interpretation is also reviewed. Patient's pain is better controlled on repeat evaluation. She will be given a prescription for naproxen and 4 additional days of steroid. She was advised that her blood sugars will elevate. She will be written for outpatient venous ultrasounds of her legs as she presents on a Tuesday afternoon when this is not available. She will fo llow-up with her primary care physician through [facility]. Discharge Plan Triage Chief Complaint: Other, Pain/Inj ED Provider: Saige Wagner Dx/Rx/DC Orders Clinical Impression: Bilateral leg cramps, Back pain Instructions: ED Back Pain (Acute or Chronic), ED Leg Spasm Prescriptions: New naproxen [Naprosyn] 500 mg tablet 500 mg PO BID PRN (Reason: pain) Qty: 20 RF: 0 prednisone 20 MG tablet 40 mg PO DAILY Qty: 8 RF: 0 No Action metformin 1,000 MG tablet 1,000 mg PO BID Qty: 60 RF: 0 glipizide 5 MG tablet 10 mg PO DAILY Qty: 60 RF: 0 insulin NPH isoph U-100 human 100 UNIT/ML suspension 10 units SQ BID RF: 0 sulfamethoxazole-trimethoprim 1 TABLET tablet 1 tab PO BID Qty: 14 RF: 0 cephalexin 500 MG capsule 500 mg PO Q6 Qty: 40 RF: 0 Primary Care Provider: Care Physician,No Primary Referrals: [facility]ilyn Pruitt [NON-STAFF] - As soon as possible Care Physician,No Primary [Primary Care Provider] - Disposition Disposition: Home, self care
[2021-03-28 13:26] LABS: Absolute Lymphocyte Count 3.78 X10^3/uL (0.83-4.51); Basophil# 0.09 X10^3/uL; Basophil% 0.7 % (0-1); Eosinophil# 0.44 X10^3/uL; Eosinophils% 3.4 % (0-5); Hematocrit 47.2 % (37-47); Hemoglobin 15.9 g/dL (12.0-15.0); Lymphocyte # 3.78 X10^3/ul (0.83-4.51); Lymphocyte % 28.8 % (19-41); Mean Corp Hgb Conc 33.7 g/dL (32-36); Mean Corpuscular Hgb 29.5 pg (27.0-32.0); Mean Corpuscular Volume 87.6 fL (81-99); Monocyte# 0.76 X10^3/uL; Monocyte% 5.8 % (0-10); NRBC Flagged by Analyzer 0 % (0-5); Neutrophil # 7.95 X10^3/uL (2.7-7.7); Neutrophil % 60.6 % (47-70); Platelet Count 272 K/mm3 (150-450); RBC Distribution Width CV 12.8 % (11.6-14.6); RBC Distribution Width SD 41.3 fl (35.1-43.9); Red Blood Count 5.39 M/mm3 (4.2-5.4); White Blood Count 13.1 K/mm3 (4.4-11.0)
[2021-03-28] MEDS: 0.9% Normal Saline 1,000 ML 1000 ML IV (13:27)
[2021-03-28] MEDS: Ketorolac 30 MG/ML Syringe IV (13:27)
[2021-03-28] MEDS: predniSONE 20 MG Tablet 40 MG PO (13:28)
[2021-03-28 13:39] LABS: Anion Gap 6 (5-15); BUN 6 mg/dL (7-18); BUN/Creat Ratio 8.5 RATIO (10-20); Calcium,Total 9.4 mg/dL (8.5-10.1); Chloride 100 mmol/L (98-107); EST Glomerular Filtration Rate 98 mL/min (>60); Est Glom Filt Rate - Afr Amer 119 mL/min (>60); Estimated Creatinine Clearance 101.01 ml/min; Glucose 339 mg/dL (74-106); Potassium 4.3 mmol/L (3.5-5.1); Sodium Level 135 mmol/L (136-145)
--- NOTE | 2021-03-28 14:14 | RAD_ITS ---
STUDY: X-RAY - PELVIS AND BILATERAL HIPS REASON FOR EXAM: Female, 40 years old. Pain in the bilateral hips since January. TECHNIQUE: AP view of the pelvis.? 2 views of the right hip, and 2 views of the left hip were obtained. COMPARISON: None. FINDINGS: There is a non-specific bowel gas pattern. Normal visualized soft tissue structures. Surgical clip and defect of the medial upper thigh/medial region. Normal bilateral iliac wings, sacroiliac joints and visualized sacrum. Normal bilateral superior and inferior pubic rami. Normal pubic symphysis. Normal bilateral ischial tuberosities. Normal visualized right femoral head. Normal right acetabulum. Normal right hip joint. Normal visualized left femoral head. Normal left acetabulum. Normal left hip joint. RAD/Hips B/L min 2 views w/ Pelvis IMPRESSION: No erosive process. No malalignment. Electronically Signed: Yash Hutton MD ([place]) at 14:35 EDT , Service support ,
[2021-03-28 14:56] VITALS: BP 142/89; PULSE 76; RESP 18; O2SAT 98
== END 2021-03-28 14:58 | disposition home or self-care (01) ==
PROVIDERS: Emergency Provider Emergency Medicine
DX: R25.2 Cramp and spasm (principal); M54.9 Dorsalgia, unspecified; M25.552 Pain in left hip; M25.551 Pain in right hip; E11.9 Type 2 diabetes mellitus without complications; J45.909 Unspecified asthma, uncomplicated; Z79.4 Long term (current) use of insulin; F17.210 Nicotine dependence, cigarettes, uncomplicated
CPT/HCPCS: 73521; 80048; 85025; 96361; 96374; 99283; J7030; A4216

== ENCOUNTER 2021-06-30 13:30 | Emergency (ER) | payer OTHER, SELFPAY ==
[2021-06-30 13:31] VITALS: BP 141/78; PULSE 92; RESP 16; TEMP 36.3; O2SAT 96; BMI 28.8
--- NOTE | 2021-06-30 13:45 | RAD_ITS ---
STUDY: X-RAY - LEFT FOOT CLINICAL: Female, 40 years old. 1 1/2 week history of pain overlying the left fifth toe. TECHNIQUE: 3 view(s) of the foot. COMPARISON: None. FINDINGS: There is an enthesophyte involving the posterior superior calcaneus at the site of insertion of the Achilles tendon. Normal visualized subtalar, talonavicular, calcaneocuboid, tarsal and tarsometatarsal articulations. Normal metatarsi. Normal metatarsophalangeal joint of the great toe. Normal tibial and fibular sesamoid bones. Normal interphalangeal joint of the great toe. Normal phalanges of the great toe. Normal second through fifth metatarsophalangeal joints. Normal interphalangeal joints and phalanges of the lesser toes. The soft tissue structures are unremarkable. RAD/Foot min 3 Views IMPRESSION: Normal x-ray examination of the foot. Electronically Signed: Osmani Stevens MD at 13:59 EDT , Service support ,
--- NOTE | 2021-06-30 14:57 | EDS_ITS ---
HPI History of Present Illness Chief Complaint: Lower Extremity Injury Informant: patient Narrative Narrative: Patient is a 40-year-old female with history of poorly controlled diabetes mellitus as well as necrotizing fasciitis presenting with 1/2 weeks of worsening left fifth toe pain. Patient denies any injury. She states the pain radiates to her leg. Sure to have some redness proximal to the toe today which triggered her to come in. She is been taking Aleve with minimal relief of her pain. She states the pain feels like a burning sensation and she is unsure if she is developing neuropathy. Is worse with any movement. No associated fever, chills or any other symptoms. No other complaints at this time. [facility] Medical History Asthma Type 2 diabetes mellitus Home Medications metformin 1,000 mg PO BID #60 tab 08/23/18 [Rx Last Taken Unknown] insulin NPH isoph U-100 human 10 units SQ BID 04/16/19 [History Last Taken Unknown] cephalexin 500 mg PO Q6 #40 cap 06/30/21 [Rx Last Taken Unknown] gabapentin 300 mg PO BID PRN #30 cap 06/30/21 [Rx Last Taken Unknown] insulin detemir U-100 [Levemir U-100 Insulin] 32 unit SUBCUT QHS 06/30/21 [History Last Taken Unknown] Allergy/AdvReac Type Severity Reaction Status Date / Time clindamycin Allergy Hives Verified 06/30/21 13:34 Social History Smoking Status: Current every day smoker tobacco type: cigarettes ROS ROS ED Constitutional Constitutional ED: Denies chills, fever(s) or malaise Eyes Eyes: Denies blurry vision or loss of vision ENT ENT ED: Denies rhinorrhea or sore throat Cardiovascular Cardiovascular: Denies chest pain or dizziness Respiratory/Chest Respiratory/Chest: Denies cough or dyspnea Gastrointestinal Gastrointestinal: Denies nausea or vomiting Genitourinary Genitourinary ED: Denies dysuria or hematuria Musculoskeletal Musculoskeletal: Reports other Details: left 5th toe pain ; Denies arthralgias or myalgias Integumentary Reports rash; Denies wounds Neurologic Neurologic: Denies focal weakness or headache(s) Psychiatric Psychiatric: Denies anxiety or behavioral changes EXAM Physical Exam Const Vital Signs: 06/30/21 13:31 Temperature 97.3 F L Temperature Source Temporal Pulse Rate 92 Respiratory Rate 16 Blood Pressure 141/78 H Blood Pressure Mean 99 Pulse Ox 96 Oxygen Delivery Method Room Air Positive well nourished and well developed General Appearance ED: well developed HEENT normocephalic and atraumatic Eyes PERRL Neck full ROM Chest Wall inspection of chest normal Resp normal respiratory effort and clear to auscultation bilaterally Cardio regular rate, regular rhythm and no murmurs Cardio Narrative: 2+ DP pulses, brisk capillary refill Extremity full ROM Extremity Narrative: No obvious deformity of the foot or left fifth toe. Patient does have significant pain with movement of the toe. General Extremety ED: Negative for edema General Extremity: Negative for edema Neuro oriented x3 Sensorium / Orientation: alert Motor Exam: strength 5/5 throughout; Negative for general weakness Skin Skin Narrative: Ruborous discoloration of the fifth left toe. No embolic lesions appreciated. Skin at the pad of the toe is thickened compared to the other toes. Patient does have a mild to centimeter area of thin erythema that is serpiginous proximal to the left fifth toe. MDM MDM MDM Narrative Medical decision making narrative: Evaluated for 2 weeks of worsening left pinky toe pain. Differential clues neuropathy as well as possible diabetic foot wound. I will be placed on gabapentin for pain control as well as Keflex empirically. Will follow up with podiatry. X-ray does not show any acute process. Patient does not have any free air or concern for necrotizing fasciitis. Radiography X-Ray: Read by ED Physician, Read by Radiologist, Normal and No Fracture Diagnostic Testing: Radiology Impression Foot X-Ray 06/30/21 13:45 IMPRESSION: Normal x-ray examination of the foot. Electronically Signed: Osmani Stevens MD at 13:59 EDT , Service support , Discharge Plan Triage Chief Complaint: Lower Extremity Injury ED Provider: Marlyn Butt Dx/Rx/DC Orders Clinical Impression: Diabetic ulcer of left fifth toe Instructions: ED Diabetic Foot Care, ED Neuropathy, Peripheral Prescriptions: New cephalexin 500 mg capsule 500 mg PO Q6 Qty: 40 RF: 0 gabapentin 300 mg capsule 300 mg PO BID PRN (Reason: neuropathy) Qty: 30 RF: 0 No Action metformin 1,000 MG tablet 1,000 mg PO BID Qty: 60 RF: 0 insulin NPH isoph U-100 human 100 UNIT/ML suspension 10 units SQ BID RF: 0 Levemir U-100 Insulin 100 unit/mL Solution 32 unit SUBCUT QHS RF: 0 Primary Care Provider: Care Physician,No Primary Referrals: Sophie Leigh DPM [STAFF PHYSICIAN] - Care Physician,No Primary [Primary Care Provider] - Activity Restrictions/Additional Instructions: Use moleskin to protect your toe. I am not sure if this is an early infection/diabetic foot wound or just neuropathy. Please follow-up with podiatry this week. Call the office tomorrow to schedule an appointment. Take all medications as prescribed. Alternate Tylenol and ibuprofen as well for pain. Disposition Disposition: Home, Self Care
== END 2021-06-30 15:11 | disposition home or self-care (01) ==
PROVIDERS: Emergency Provider Emergency Medicine
DX: E11.621 Type 2 diabetes mellitus with foot ulcer (principal); L97.529 Non-pressure chronic ulcer of other part of left foot with unspecified severity; J45.909 Unspecified asthma, uncomplicated; Z79.4 Long term (current) use of insulin; F17.210 Nicotine dependence, cigarettes, uncomplicated
CPT/HCPCS: 73630; 99282

== ENCOUNTER → 2021-08-20 09:40 | Outpatient (CLI) | payer OTHER, SELFPAY ==
[2021-08-20 10:29] LABS: Absolute Lymphocyte Count 2.87 X10^3/uL (0.83-4.51); Absolute Neutrophil Count 5.4 X10^3/uL (2.0-7.7); Basophil# 0.09 X10^3/uL; Color, Urine Yellow (Yellow); Eosinophil# 0.36 X10^3/uL; Eosinophils% 3.8 % (0-5); Glucose, Dipstick 1000 mg/dl (Normal); Hematocrit 47.2 % (37-47); Hemoglobin 15.8 g/dL (12.0-15.0); Ketone-Dipstick Negative (Negative); Leukocyte Esterase-Dipstick Negative /ul (Negative); Lymphocyte # 2.87 X10^3/ul (0.83-4.51); Lymphocyte % 30.5 % (19-41); Mean Corp Hgb Conc 33.5 g/dL (32-36); Mean Corpuscular Hgb 29.4 pg (27.0-32.0); Mean Corpuscular Volume 87.7 fL (81-99); Mean Platelet Vol. 11.8 fl (6.2-12.0); Monocyte# 0.62 X10^3/uL; Monocyte% 6.6 % (0-10); NRBC Flagged by Analyzer 0 % (0-5); Neutrophil # 5.37 X10^3/uL (2.7-7.7); Neutrophil % 57.1 % (47-70); Nitrite-Dipstick Negative (Negative); Occult Blood-Urine Negative /ul (Negative); Platelet Count 313 K/mm3 (150-450); Protein-Dipstick 15 mg/dl (Negative); RBC Distribution Width CV 12.7 % (11.6-14.6); RBC Distribution Width SD 40.7 fl (35.1-43.9); Red Blood Count 5.38 M/mm3 (4.2-5.4); Specific Gravity, Urine 1.015 (1.002-1.030); Urine Bilirubin Dipstick Negative (Negative); Urine Clarity Sl. Cloudy (Clear); Urine Urobilinogen Normal (Normal); White Blood Count 9.4 K/mm3 (4.4-11.0)
[2021-08-20 11:01] LABS: Hemoglobin A1c 11.7 % (3.8-5.6)
[2021-08-20 11:05] LABS: ALB/GLOB Ratio 0.8 RATIO (0.9-2.4); AST(SGOT) 8 U/L (15-37); Alanine Aminotransfer ALT/SGPT 20 U/L (13-56); Albumin, Serum 3.2 g/dL (3.2-5.0); Alkaline Phosphatase 149 U/L (45-117); Anion Gap 6 (5-15); BUN 5 mg/dL (7-18); BUN/Creat Ratio 6.6 RATIO (10-20); Calcium,Total 8.6 mg/dL (8.5-10.1); Chloride 101 mmol/L (98-107); Creatinine, Serum 0.76 mg/dL (0.55-1.02); EST Glomerular Filtration Rate 89 mL/min (>60); Est Glom Filt Rate - Afr Amer 108 mL/min (>60); Glucose 363 mg/dL (74-106); Potassium 4.4 mmol/L (3.5-5.1); Protein, Total 7.2 g/dL (6.4-8.2); Sodium Level 134 mmol/L (136-145)
== END ==
LOC: LAB 09:44
DX: E11.65 Type 2 diabetes mellitus with hyperglycemia (principal)
CPT/HCPCS: 36415; 80053; 81002; 83036; 85025

== ENCOUNTER 2024-02-21 15:00 | Outpatient (RCR) | payer MEDICAID, SELFPAY ==
[2024-02-17 09:58] VITALS: BP 143/60; PULSE 81; RESP 18; TEMP 36.6; O2SAT 98; BMI 37.1
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
--- NOTE | 2024-02-20 14:35 | WC ---
02/17/2024 RIGHT DISTAL UPPER THIGH
[2024-02-21 15:58] VITALS: BMI 37.1
[2024-02-21 15:59] VITALS: BP 168/73; PULSE 54; TEMP 36.1
== END 2024-02-21 23:59 | disposition home or self-care (01) ==
LOC: WC 15:00
PROVIDERS: PCP Internal Medicine; Referring Provider Internal Medicine; Visit Provider Family Medicine
DX: M72.6 Necrotizing fasciitis (principal); J44.9 Chronic obstructive pulmonary disease, unspecified; E11.9 Type 2 diabetes mellitus without complications; Z79.4 Long term (current) use of insulin; S31.829A Unspecified open wound of left buttock, initial encounter; S71.102A Unspecified open wound, left thigh, initial encounter; I10 Essential (primary) hypertension; Z99.2 Dependence on renal dialysis; F17.210 Nicotine dependence, cigarettes, uncomplicated; Z79.01 Long term (current) use of anticoagulants; Z79.84 Long term (current) use of oral hypoglycemic drugs; Z79.899 Other long term (current) drug therapy
CPT/HCPCS: 11042; 11045; 97605; 97606; 99203; G0463

== ENCOUNTER 2024-03-23 09:00 | Outpatient (RCR) | payer MEDICAID, SELFPAY ==
[2024-02-22 00:57] VITALS: BP 168/73; PULSE 54; RESP 18; TEMP 36.1; O2SAT 98; BMI 37.1
[2024-02-24 10:03] VITALS: BP 141/63; PULSE 68; RESP 18; TEMP 35.9; BMI 37.1
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
[2024-02-28 15:45] VITALS: BP 180/74; PULSE 62; RESP 18; TEMP 35.9; BMI 37.1
[2024-03-02 09:48] VITALS: BP 181/68; PULSE 65; RESP 18; TEMP 36.3; BMI 37.1
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
[2024-03-09 09:03] VITALS: BP 180/63; PULSE 73; RESP 18; TEMP 35.9; BMI 37.1
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
--- NOTE | 2024-03-12 15:57 | WC ---
Patient called this am concerned that she hasn't received her vac supplies that were ordered on Tuesday by [place]/immigration case worker. I told her to wait till this afternoon and if she has not received anything from [facility] to call us back. She verbalized also stated that her cohen catheter balloon might have deflated a bit since when she is on the toilet, she trickles some urine even though her cohen bag fills up with urine. Patient is scheduled to see a nurse visit tomorrow regarding this catheter and her wound vac. Will address this tomorrow.
[2024-03-13 10:55] VITALS: BP 172/78; PULSE 81; RESP 18; TEMP 36.5; BMI 37.1
[2024-03-16 11:12] VITALS: BP 168/88; PULSE 83; RESP 18; TEMP 36.2; BMI 37.1
--- NOTE | 2024-03-16 13:46 | WC ---
cohen cathetar removed per doctors order and new 16 Fr cathetar reinserted and urine sample sent to lab as ordered
--- NOTE | 2024-03-16 14:15 | PN.PCM_ITS ---
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 S31.829D - Unspecified open wound of left buttock, subsequent encounter (4) Open wound of left thigh: CODE(S): S71.102A - Unspecified open wound, left thigh, initial encounter QUALIFIERS: Encounter type: subsequent encounter Qualified Code(s): S71.102D - Unspecified open wound, left thigh, subsequent encounter (5) Insulin dependent type 2 diabetes mellitus: CODE(S): E11.9 - Type 2 diabetes mellitus without complications; Z79.4 - skid man (current) use of insulin (6) Acute renal failure: CODE(S): N17.9 - Acute kidney failure, unspecified QUALIFIERS: Acute renal failure type: unspecified Qualified Code(s): N17.9 - Acute kidney failure, unspecified (7) Dialysis patient: CODE(S): Z99.2 - Dependence on renal dialysis (8) HTN (hypertension): CODE(S): I10 - Essential (primary) hypertension QUALIFIERS: Hypertension type: primary hypertension Qualified Code(s): I10 - Essential (primary) hypertension (9) 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 At home wound-care instructions: Will continue with wound vac treatment at 125 mm Hg to the open ulcer of her left thigh/buttock due to large skin defect and heavy drainage. Continue Esparza catheter to help maintain seal and suction of wound vac and avoid contamination due to incontinence and urination as the open area is very close to her perineum. Esparza catheter changed today. Urine culture taken. Will keep dressing clean and dry. Plan to change vac on Tuesdays and Fridays. She does not qualify for Home Health so will be done at the wound center. Her abdominal ulcer is healed. Off-loading: The patient was instructed to avoid pressure and friction on the affected areas. Reposition every 2 hours at minimum. Avoid prolonged standing and/or dangling of legs. When seated, feet should be elevated at chest level. Frequent ambulation is encouraged. Diet: Patient encouraged to increase protein intake while taking caution to avoid high carbohydrate and/or sugar intake. Encouraged glycemic control. Labs/cultures/imaging: Will obtain labs. Antibiotic completed 02/23/24. Culture positive for anaerobic bacteria, E. Coli and Staph. She started treatment on Ciprofloxacin and Flagyl. Follow-up: Return in 1 week for wound vac change and 2 weeks for wound care visit. Return sooner or report to the emergency room should symptoms worsen, or new symptoms arise. Note: [employer] speech recognition automobile inspector software was used to create portions of this document. Sound-alike and misspelled words, as well as other automobile inspector errors may be contained in the documentation.
[2024-03-21 13:42] VITALS: BP 172/93; PULSE 77; RESP 16; TEMP 35.9; BMI 37.1
[2024-03-23 08:51] VITALS: BP 158/78; PULSE 80; RESP 18; TEMP 36.2; BMI 37.1
[2024-03-23 09:23] VITALS: RESP 18; BMI 37.1
== END 2024-03-23 23:59 | disposition home or self-care (01) ==
LOC: WC 09:00
PROVIDERS: PCP Internal Medicine; Referring Provider Internal Medicine; Visit Provider Family Medicine
DX: M72.6 Necrotizing fasciitis (principal); L89.893 Pressure ulcer of other site, stage 3; L98.412 Non-pressure chronic ulcer of buttock with fat layer exposed; L98.492 Non-pressure chronic ulcer of skin of other sites with fat layer exposed; J44.9 Chronic obstructive pulmonary disease, unspecified; E11.9 Type 2 diabetes mellitus without complications; Z79.4 Long term (current) use of insulin; N17.9 Acute kidney failure, unspecified; I10 Essential (primary) hypertension; F17.200 Nicotine dependence, unspecified, uncomplicated; Z99.2 Dependence on renal dialysis; Z79.01 Long term (current) use of anticoagulants; Z79.899 Other long term (current) drug therapy; Z99.81 Dependence on supplemental oxygen
CPT/HCPCS: 11042; 11043; 11045; 11046; 87070; 87075; 87077; 87086; 87088; 87186; 87205; 97605; 97606

== ENCOUNTER 2024-03-30 08:11 | Day surgery (SDC) | payer MEDICAID, SELFPAY ==
[2024-03-29 09:29] VITALS: BMI 26.4
[2024-03-30 08:49] LABS: Internal QC Validated? YES +Cl - CLEAR BKGD; Pregnancy, Serum, hCG Quali. NEGATIVE Negative
[2024-03-30 08:56] LABS: Anion Gap 10 (5-15); BUN 4 mg/dL (7-18); BUN/Creat Ratio 4.9 RATIO (10-20); Calcium,Total 9.1 mg/dL (8.5-10.1); Chloride 101 mmol/L (98-107); Creatinine, Serum 0.82 mg/dL (0.55-1.02); EST Glomerular Filtration Rate 81 mL/min (>60); Est Glom Filt Rate - Afr Amer 98 mL/min (>60); Estimated Creatinine Clearance 92.18 ml/min; Glucose 361 mg/dL (74-106); Potassium 2.7 mmol/L (3.5-5.1); Sodium Level 138 mmol/L (136-145)
--- NOTE | 2024-03-30 11:05 | OP.PCM_ITS ---
Report of Operation Date of Procedure: 03/30/24 Pre-Operative Diagnosis: Prior central venous catheter for dialysis no longer r equired Post-Operative Diagnosis: Same Surgery/Procedure Performed:: Removal of tunneled central venous catheter Surgeon: Kimo Davies Type of Anesthesia: Local and Sedation,Conscious Estimated Blood Loss (mL): 3 Description of Procedure: HPI: Patient is a 43 a female who suffered acute renal injury after necrotizing fasciitis and use of multiple antibiotics. Her renal function has recovered and she no longer requiring dialysis. She presents now for catheter removal. Description of procedure: Upon obtaining form consent and verification correct patient procedure site patient taken to the [employer] [facility] where she was positioned prepped and draped in usual fashion. Time was performed, sedation administered Versed and fentanyl. Skin surrounding the tunneled catheter and the cuff was anesthetized with 1% lidocaine. The sutures were divided, and skin entry site extended with 11 blade. The tract was then bluntly dissected with a hemostat up to the cuff which was then circumferentially dissected free with blunt dissection. Fluoroscopy was used to document the catheter position and it was then withdrawn and manual pressure held over the access site in the neck as well as the inferior aspect of the tunnel with the skin incision. Completion fluoroscopy imaging was obtained to confirm that no remnant catheter was left behind. After minor pressure was held dry sterile dressings were applied the patient was taken the recovery area before discharged home.
== END 2024-03-30 10:50 | disposition home or self-care (01) ==
PROVIDERS: PCP Internal Medicine; Visit Provider Surgery Trauma Surgery
DX: Z45.2 Encounter for adjustment and management of vascular access device (principal); L97.123 Non-pressure chronic ulcer of left thigh with necrosis of muscle; M72.6 Necrotizing fasciitis; E11.9 Type 2 diabetes mellitus without complications; Z79.4 Long term (current) use of insulin; N17.9 Acute kidney failure, unspecified; I10 Essential (primary) hypertension; Z99.2 Dependence on renal dialysis; S71.102D Unspecified open wound, left thigh, subsequent encounter; S31.829D Unspecified open wound of left buttock, subsequent encounter; F17.210 Nicotine dependence, cigarettes, uncomplicated; Z79.84 Long term (current) use of oral hypoglycemic drugs; J45.909 Unspecified asthma, uncomplicated; Z79.01 Long term (current) use of anticoagulants; X58.XXXD Exposure to other specified factors, subsequent encounter
CPT/HCPCS: 11042; 11045; 36415; 36589; 80048; 84703; 97607; J7040

== ENCOUNTER 2024-04-20 10:30 | Outpatient (RCR) | payer MEDICAID, SELFPAY ==
[2024-03-24 01:14] VITALS: BP 168/73; PULSE 54; RESP 18; TEMP 36.1; O2SAT 98; BMI 37.1
[2024-03-27 13:56] VITALS: BP 146/77; PULSE 87; RESP 18; TEMP 36.4; BMI 37.1
[2024-03-30 11:40] VITALS: BMI 37.1
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
[2024-04-03 15:51] VITALS: BP 168/90; PULSE 89; RESP 18; TEMP 35.3; BMI 37.1
[2024-04-06 11:17] VITALS: BP 129/84; PULSE 88; RESP 18; TEMP 36.2; BMI 37.1
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
[2024-04-09 14:25] VITALS: BP 146/80; PULSE 87; RESP 16; BMI 37.1
--- NOTE | 2024-04-09 14:54 | WC ---
wound cx results reviewed by dr claudio. she sent rx to [facility] for augmentin. pt updated. allergies reviewed. pt agreeable.
[2024-04-13 10:55] VITALS: BP 149/93; PULSE 85; RESP 16; BMI 37.1
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
[2024-04-20 10:56] VITALS: BP 97/71; PULSE 90; RESP 18; TEMP 35.3; BMI 37.1
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
== END 2024-04-22 23:59 | disposition home or self-care (01) ==
LOC: WC 10:30
PROVIDERS: PCP Internal Medicine; Referring Provider Internal Medicine; Visit Provider Family Medicine
DX: E11.622 Type 2 diabetes mellitus with other skin ulcer (principal); L97.123 Non-pressure chronic ulcer of left thigh with necrosis of muscle; J44.9 Chronic obstructive pulmonary disease, unspecified; Z79.4 Long term (current) use of insulin; N17.9 Acute kidney failure, unspecified; F17.200 Nicotine dependence, unspecified, uncomplicated; N32.89 Other specified disorders of bladder; I10 Essential (primary) hypertension; Z99.81 Dependence on supplemental oxygen; Z99.2 Dependence on renal dialysis; Z79.01 Long term (current) use of anticoagulants; Z79.899 Other long term (current) drug therapy
CPT/HCPCS: 11042; 11045; 97607; 87070; 87075; 87077; 87186; 87205; 97605

== ENCOUNTER 2024-05-18 09:45 | Outpatient (RCR) | payer MEDICAID, SELFPAY ==
[2024-04-23 00:15] VITALS: BP 168/73; PULSE 54; RESP 18; TEMP 36.1; O2SAT 98; BMI 37.1
[2024-05-04 10:10] VITALS: BP 125/84; PULSE 83; RESP 18; TEMP 35.9; BMI 37.1
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
[2024-05-18 09:44] VITALS: BP 143/76; PULSE 85; RESP 18; TEMP 35.8; BMI 37.1
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
--- NOTE | 2024-05-24 11:48 | WC ---
PHOTO POST THIGH 05/18/24
== END 2024-05-23 23:59 | disposition home or self-care (01) ==
LOC: WC 09:45
PROVIDERS: PCP Internal Medicine; Referring Provider Internal Medicine; Visit Provider Family Medicine
DX: E11.622 Type 2 diabetes mellitus with other skin ulcer (principal); L97.129 Non-pressure chronic ulcer of left thigh with unspecified severity; J44.9 Chronic obstructive pulmonary disease, unspecified; Z79.4 Long term (current) use of insulin; S71.102A Unspecified open wound, left thigh, initial encounter; S31.829A Unspecified open wound of left buttock, initial encounter; N17.9 Acute kidney failure, unspecified; I10 Essential (primary) hypertension; F17.200 Nicotine dependence, unspecified, uncomplicated; Z99.2 Dependence on renal dialysis; Z99.81 Dependence on supplemental oxygen; Z79.01 Long term (current) use of anticoagulants; Z79.899 Other long term (current) drug therapy
CPT/HCPCS: 99212; 99213; G0463

== ENCOUNTER 2024-11-21 09:30 | Outpatient (RCR) | payer MEDICAID, SELFPAY ==
[2024-11-07 10:14] VITALS: BP 106/75; PULSE 92; RESP 18; TEMP 36.1
--- NOTE | 2024-11-07 11:35 | HP.PCM_ITS ---
History of Present Illness Date of Service: 11/07/24 Chief Complaint: left buttock ulcer History of Wound: Ms. Rojo is a 43-year-old diabetic female presenting to the wound care center today for follow-up evaluation and treatment of a left foot fourth digit full-thickness wound. Patient was seen by her vascular surgeon who had vascular studies performed. She has notable peripheral arterial disease due to decreased blood flow to left lower extremity. She does have a large past medical history and complications to peripheral vascular disease, diabetes, hypertension, tobacco use, COPD/asthma. Patient is concern for losing her digit on the left foot. She does admit to having to elevate out of bed and walk around due to decreased blood flow. She denies trauma to the left foot. Denies constitutional symptoms. No other pedal complaints at this time. Progress of Wound: Stable ulcer to the dorsal aspect of the left foot fourth digit. Presenting to the wound care center today for evaluation and treatment. [facility] Medical History Asthma Type 2 diabetes mellitus Home Medications ?Medication ?Instructions ?Recorded ?Last Taken ?Type insulin NPH isoph U-100 human 100 10 units SQ BID 04/16/19 Unknown History unit/mL subcutaneous suspension gabapentin 300 mg capsule 300 mg PO BID PRN neuropathy #30 06/30/21 Unknown Rx caps insulin detemir U-100 100 unit/mL 30 unit subcut QHS 06/30/21 Unknown History subcutaneous solution (Levemir U-100 Insulin) cholecalciferol (vitamin D3) 125 125 mcg PO DAILY 02/17/24 Unknown History mcg (5,000 unit) capsule duloxetine 30 mg capsule,delayed 30 mg PO DAILY 02/17/24 Unknown History release famotidine 40 mg tablet 40 mg PO QHS 02/17/24 Unknown History lisinopril 5 mg tablet 5 mg PO DAILY 02/17/24 Unknown History nystatin 100,000 unit/mL oral 5 ml PO 4X/DAY 02/17/24 Unknown History suspension oxycodone-acetaminophen 5 mg-325 1 tab PO Q6H PRN PRN pain 02/17/24 Unknown History mg tablet pregabalin 200 mg capsule 200 mg PO BID 02/17/24 Unknown History apixaban 5 mg tablet (Eliquis) 5 mg PO BID 03/30/24 Unknown History Allergy/AdvReac Type Severity Reaction Status Date / Time clindamycin Allergy Hives Verified 11/07/24 10:27 Family History Other Asthma COPD (chronic obstructive pulmonary disease) Cancer Diabetes Heart disease Surgical History History of skin graft Social History Smoking Status: Current every day smoker tobacco type: cigarettes Vital Signs Vital Signs Vital Signs: 11/07/24 10:14 Temperature 96.9 F L Temperature Source Temporal Pulse Rate 92 Respiratory Rate 18 Blood Pressure 106/75 Blood Pressure Mean 85 Blood Pressure Source Monitor Blood Pressure Position Semi-Fowlers Blood Pressure Location Left Arm Oxygen Delivery Method Room Air Physical Exam Narrative Vascular: DP and PT pulses are nonpalpable. Monophasic pulses to the DP and PT arteries with Doppler. Capillary refill time is delayed. Same temperature gradient is warm to cold from proximal ankle to distal digits. No erythema. Neurological: Light touch intact. Protective station is diminished. Patient d oes respond to painful stimuli. Dermatological: Stable eschar to the dorsal aspect of the left foot fourth digit. No periwound erythema. No open lesions or abrasions are appreciated. Full-thickness wound measures 0.5 x 0.5 x 0.2 cm. Wound base is granular. Cannot rule out infection at this time. Excisional debridement down to and including subcutaneous tissue with a #15 blade and pickup to the dry eschar to the dorsal aspect of the left foot fourth digit without incident. Predebridement measurement was eschar. Postdebridement measurement is 0.5 x 0.5 x 0.2 cm. Musculoskeletal: Muscle strength 5/5 in all quadrants left lower extremity. Moderate palpatory tenderness appreciated to the dry eschar to the dorsal aspect of the left fourth digit. No Pain with calf pressure. Debridement Note Debridement Note Debridement Free Text: Excisional debridement down to and including subcutaneous tissue with a #15 blade and pickup to the dry eschar to the dorsal aspect of the left foot fourth digit without incident. Predebridement measurement was eschar. Postdebridement measurement is 0.5 x 0.5 x 0.2 cm. Post-Debridement Measurements and Additional Note: Post-Debridement Measurements/Treatment SURENDRA - Nurse 1 - General Ulcer Assessment Start: 11/07/24 10:14 Freq: Status: Active Protocol: JIA Activity Type Activity Date Activity User E-sign Co-sign Detail Recorded Client Recorded Date Recorded By Document 11/07/24 10:14 DOMINIK [id number] 11/07/24 10:26 KW 11/07/24 10:14 WC - Today's Visit Information Type of service Initial Visit Arrival Mode Ambulatory,Cane Patient Identification Verified (Name & Yes ) Finger Stick Blood Sugar(mg/dl) (if 312 indicated): Blood Sugar Done During this Visit Vital Signs Temperature (97.8 F-99.1 F) 96.9 F L Temperature Source Temporal Pulse Rate (60-100) 92 Pulse Location Monitor Respiratory Rate (12-18) 18 Respiratory rate source Observation Oxygen Delivery Method Room Air Blood Pressure (90/60-120/80) 106/75 Blood Pressure Mean 85 Source Monitor Position Semi-Fowlers Blood Pressure Location Left Arm History Since Last Visit- (Skip if this is Patient's initial visit) Left Footwear Regular Shoe Right Footwear Regular Shoe Pain Scale: 0-10 Numeric Is Patient Pain Free? No LT FOOT -Description Burning -Intensity 10 -Alleviating Factors/Interventions Medication, Medicate when due Communication Assessment Preferred language [employer] Delivery Consultant Required No Able to Read Yes Able to Write Yes Communication Tools None Caregiver Communication Skills No Impairment Impairment Right Hearing Abillity Normal Left Hearing Abillity Normal Visual Assistive Devices Glasses Teaching Assessment Preferences Verbal,Written, Demonstration Barriers to Learning None Readiness To Learn Excellent Willingness to Engage in Self Management High Activies Readiness to Engage in Self Management High Activities Anxiety Level Calm Cooperation Cooperative Perception Coherent Interest in Health Problem Asks Questions Education Importance Acknowledges Need Does Patient Smoke tobacco or other Yes substances Smoking Status Current every day smoker Is Patient Diabetic Yes Functional Assessment Recent Decline in Ability to Perform Denies Any Declines Culture/Denominational/Fitness And Wellness Director Cultural/Denominational Needs that may affect No Treatment Plan Would you allow our hospital flooring installer to No meet you for the purpose of spiritual/ emotional support? Fitness And Wellness Director to contact place of orthodoxy No SURENDRA - Nurse 1 - General Ulcer Measurement Start: 11/07/24 10:14 Freq: Status: Active Protocol: Activity Type Activity Date Activity User E-sign Co-sign Detail Recorded Client Recorded Date Recorded By Document 11/07/24 10:14 KW [id number] 11/07/24 10:26 KW 11/07/24 10:14 Wound Center Nurse 1 #3 LT 4TH TOE -Current Size (cm) - Length 0.5 -Current Size (cm) - Width 0.5 -Current Size (cm) - Depth 0.1 -Total Square Cm 0.25 -Date of Last Picture (Recall this 11/07/24 field) -Exudate Amt None Present -Wound Margin Distinct, Outline Attached -Necrosis Amt Large (67-100%) -Necrotic Tissue Type Eschar -Texture (Genevieve-wound Skin Appearance) Assessed -Moisture (Genevieve-wound Skin Appearance) Assessed -Color (Genevieve-wound Skin Appearance) Assessed -Temperature (Genevieve-wound Skin No Abnormality Appearance) (Pt Warm) -Tenderness on Palpation (Genevieve-wound No Skin Appearance) -Ulcer Cleansing Rinsed/ Irrigated with Saline -Foul Odor after Cleansing No -Anesthetic Used 5% Lidocaine Gel WC - Nurse 2 - General Ulcer CM Notes Start: 11/07/24 10:14 Freq: Status: Active Protocol: Activity Type Activity Date Activity User E-sign Co-sign Detail Recorded Client Recorded Date Recorded By Document 11/07/24 10:45 JF [id number] 11/07/24 10:55 JF Edit Result 11/07/24 10:45 JF (1) [id number] 11/07/24 10:58 JF (1) #3 LT 4TH TOE - Post Debridement (cm) - Depth 0.3 => 0.2 11/07/24 10:45 Wound Center Nurse 2 -Time 10:51 -Correct Patient Yes -Correct Side, Site, Position Yes -Correct Procedure Yes -Procedure Performed Yes -Type of Procedure Debridement -Clinical Debridement Subcutaneous -Tissue Removed Subcutaneous -Post Debridement (cm) - Length 0.5 -Post Debridement (cm) - Width 0.5 -Post Debridement (cm) - Depth 0.2 -Total Square (Post) (cm) 0.25 -Area of Debridement (cm) - Length 0.5 -Area of Debridement (cm) - Width 0.5 -Total Square (Area) (cm) 0.25 -Tunneling No -Undermining/Tunneling No -Circular Undermining No -Wound/Ulcer Outcome Not Healed -Ulcer Cleansing Rinsed/ Irrigated with Saline -Foul Odor after Cleansing No -Bioengineered Tissue No -Bleeding Controlled with Pressure -Treatment Response Procedure Tolerated Well -Offloading Yes -Type of Offloading Surgical Shoe -Debridement - Subq, 1st 20sq cm Yes Pain Scale: 0-10 Numeric Is Patient Pain Free? Yes - Nurse 3 - General Ulcer D/C NN Start: 11/07/24 10:14 Freq: Status: Active Protocol: Activity Type Activity Date Activity User E-sign Co-sign Detail Recorded Client Recorded Date Recorded By Document 11/07/24 11:06 DL [id number] 11/07/24 11:10 DL 11/07/24 11:06 Wound Care Center Nurse 3 #3 LT 4TH TOE -Ulcer Cleansing Rinsed/ Irrigated with Saline -Foul Odor after Cleansing No -Other Dressing bactrpban -Primary Dressing Covered/Secured with Dry Gauze & Roll Gauze, Secured with Tape -Wound Comment(s) Surgical Shoe given today. Dressing applied today per Harriet Hodge. Treatment Response Procedure Tolerated Well Pain Scale: 0-10 Numeric Is Patient Pain Free? Yes - Visit Discharge Discharge Condition Stable Ambulatory Status Ambulatory Transportation Private Auto Assessment/Plan Assessment/Plan (1) Non-pressure chronic ulcer of other part of left foot with fat layer exposed: CODE(S): L97.522 - Non-pressure chronic ulcer of other part of left foot with fat layer exposed PLAN: Patient was examined and evaluated. All findings were discussed with the patient. All questions were answered to the patient's satisfaction. Excisional debridement down to and including subcutaneous tissue with a #15 blade and pickup to the dry eschar to the dorsal aspect of the left foot fourth digit without incident. Predebridement measurement was eschar. Postdebridement measurement is 0.5 x 0.5 x 0.2 cm. Left foot culture was taken antibiotics will be prescribed as needed. The left foot was wiped clean and patted dry. Mupirocin cream followed by dry sterile dressing was applied to the left lower extremity. Due to the patient's decreased blood flow and the finding of monophasic pulses and concern for dampening pulses to the posterior tibial artery to left lower extremity the patient will be referred to vascular surgery for consultation and intervention at their discretion. I did educate to the patient that due to her history of peripheral vascular disease there was a risk for gangrene to the left fourth digit after debridement and she is understanding of. Will make all efforts to continue wound care and limb salvage as needed. The patient showed understanding of this. I educated the patient on strict blood sugar control and smoking cessation. Follow-up at the wound care center with Dr. Zambrano in 1 week. (2) Other specified peripheral vascular diseases: CODE(S): I73.89 - Other specified peripheral vascular diseases (3) Acute painful diabetic polyneuropathy: CODE(S): E11.42 - Type 2 diabetes mellitus with diabetic polyneuropathy (4) Pain in left foot: CODE(S): M79.672 - Pain in left foot
--- NOTE | 2024-11-08 08:25 | WC ---
PHOTO 11/07/24 LEFT 4TH TOE
[2024-11-21 09:28] VITALS: BP 137/83; PULSE 75; RESP 18
--- NOTE | 2024-11-21 11:21 | PCM.WC.PN ---
History of Present Illness Date of Service: 05/18/24 Chief Complaint: left buttock ulcer History of Wound: Ms. Rojo is a 43-year-old diabetic female presenting to the wound care center today for follow-up evaluation and treatment of a left foot fourth digit full-thickness wound. Patient was seen by her vascular surgeon who had vascular studies performed. She has notable peripheral arterial disease due to decreased blood flow to left lower extremity. She does have a large past medical history and complications to peripheral vascular disease, diabetes, hypertension, tobacco use, COPD/asthma. Patient is concern for losing her digit on the left foot. She does admit to having to elevate out of bed and walk around due to decreased blood flow. She denies trauma to the left foot. Denies constitutional symptoms. No other pedal complaints at this time. Progress of Wound: Stable callus to the left foot fourth digit. No new sign of infection or wound. Subjective Subjective Mrs. Rojo is a 43-year-old diabetic female presenting to wound care center today for follow-up and evaluation of the left foot fourth digit full-thickness wound. Patient states the wound is healed. She is doing dressing changes as discussed. She did follow-up with Dr. Davies and he recommended aortic to femoral bypass. He states that he does not do those here and she will need to be seen by a vascular surgeon at either [facility] or [facility]. She denies any new onset of trauma. Denies constitutional symptoms. Other pedal complaints at this time. Objective Data Objective Data Vital Signs: Vital Signs Temp Pulse Resp BP O2 Del Method 96.9 F L 75 18 137/83 H Room Air 11/07/24 10:14 11/21/24 09:28 11/21/24 09:28 11/21/24 09:28 11/21/24 09:28 Oxygen Delivery Method Room Air Weight: 88.451 kg Lab / Micro Data Micro: Microbiology 11/07/24 15:01 Ulcer, Decubitus - Left Foot Gram Stain - Final 11/07/24 15:01 Ulcer, Decubitus - Left Foot Wound Culture - Final No growth aerobically. 11/07/24 15:01 Ulcer, Decubitus - Left Foot Anaerobic Culture - Final No growth in 5 days. Physical Exam Narrative Vascular: DP and PT pulses are nonpalpable. Monophasic pulses to the DP and PT arteries with Doppler. Capillary refill time is delayed. Same temperature gradient is warm to cold from proximal ankle to distal digits. No erythema. Neurological: Light touch intact. Protective station is diminished. Patient does respond to painful stimuli. Dermatological: Evidence of callus to the dorsal aspect of the fourth digit left foot. No sign of infection. No erythema. Musculoskeletal: Muscle strength 5/5 in all quadrants left lower extremity. Moderate palpatory tenderness appreciated to the dry eschar to the dorsal aspect of the left fourth digit. No Pain with calf pressure. Const alert, oriented x3 and no apparent distress General Appearance: cooperative and comfortable HEENT normocephalic and head/scalp atraumatic Resp normal respiratory effort Effort and Inspection: able to speak in complete sentences Cardio regular rate and regular rhythm Skin Wounds: wounds noted Wound Narrative: as in clinical panel Psych mental status grossly normal, thought process normal, cooperative and affect normal Debridement Note Debridement Note Wound debrided: left buttock/thigh ulcer Laterality: Left No debridement was completed: No debridement was completed today (ulcer healed) Post-Debridement Measurements and Additional Note: Post-Debridement Measurements/Treatment - Nurse 1 - General Ulcer Assessment Start: 11/07/24 10:14 Freq: Status: Active Protocol: SURENDRA.MARISSA Activity Type Activity Date Activity User E-sign Co-sign Detail Recorded Client Recorded Date Recorded By Document 11/07/24 10:14 KW [id number] 11/07/24 10:26 KW Document 11/21/24 09:28 KW [id number] 11/21/24 09:34 KW 11/07/24 11/21/24 10:14 09:28 - Today's Visit Information Type of service Initial Visit Follow-up Visit (Physician/BUSINESS SERVICES SPECIALIST SALES ) Arrival Mode Ambulatory,Cane Ambulatory,Cane Patient Identification Verified (Name & Yes Yes ) Finger Stick Blood Sugar(mg/dl) (if 312 indicated): Blood Sugar Done During this Visit Vital Signs Temperature (97.8 F-99.1 F) 96.9 F L Temperature Source Temporal Pulse Rate (60-100) 92 75 Pulse Location Monitor Monitor Respiratory Rate (12-18) 18 18 Respiratory rate source Observation Observation Oxygen Delivery Method Room Air Room Air Blood Pressure (90/60-120/80) 106/75 137/83 H Blood Pressure Mean (mm Hg) 85 101 Source Monitor Monitor Position Semi-Fowlers Semi-Fowlers Blood Pressure Location Left Arm Left Arm History Since Last Visit- (Skip if this is Patient's initial visit) Have you changed medications since your No last visit? Any new allergies or adverse reactions No Had a fall/change in ADL's that may No increase risk of falls Signs or symptoms of abuse and/or No neglect since last visit Have you been in the hospital since your No last visit? Has dressing in place as prescribed Yes Has compression in place as prescribed N/A Has offloadiing in place as prescribed Yes Experienced any changes in pain level or No management Left Footwear Regular Shoe Surgical Shoe with pressure relief insole Right Footwear Regular Shoe Regular Shoe Pain Scale: 0-10 Numeric Is Patient Pain Free? No Yes LT FOOT -Description Burning -Intensity 10 -Alleviating Factors/Interventions Medication, Medicate when due Communication Assessment Preferred language Sami Bpm Developer Required No Able to Read Yes Able to Write Yes Communication Tools None Caregiver Communication Skills No Impairment Impairment Right Hearing Abillity Normal Left Hearing Abillity Normal Visual Assistive Devices Glasses Teaching Assessment Preferences Verbal,Written, Demonstration Barriers to Learning None Readiness To Learn Excellent Willingness to Engage in Self Management High Activies Readiness to Engage in Self Management High Activities Anxiety Level Calm Cooperation Cooperative Perception Coherent Interest in Health Problem Asks Questions Education Importance Acknowledges Need Does Patient Smoke tobacco or other Yes substances Smoking Status Current every day smoker Is Patient Diabetic Yes Functional Assessment Recent Decline in Ability to Perform Denies Any Declines Culture/Spiritism/Ratoprinter Cultural/Spiritism Needs that may affect No Treatment Plan Would you allow our hospital answering service operator to No meet you for the purpose of spiritual/ emotional support? Ratoprinter to contact place of hoahaoism No WC - Nurse 1 - General Ulcer Measurement Start: 11/07/24 10:14 Freq: Status: Active Protocol: Activity Type Activity Date Activity User E-sign Co-sign Detail Recorded Client Recorded Date Recorded By Document 11/07/24 10:14 KW [id number] 11/07/24 10:26 KW Document 11/21/24 09:28 KW [id number] 11/21/24 09:34 KW 11/07/24 11/21/24 10:14 09:28 Wound Center Nurse 1 #3 LT 4TH TOE -Current Size (cm) - Length 0.5 0.1 -Current Size (cm) - Width 0.5 0.1 -Current Size (cm) - Depth 0.1 0 -Total Square Cm 0.25 0.01 -Date of Last Picture (Recall this 11/07/24 11/21/24 field) -Exudate Amt None Present None Present -Wound Margin Distinct, Outline Attached -Necrosis Amt Large (67-100%) -Necrotic Tissue Type Eschar -Texture (Genevieve-wound Skin Appearance) Assessed Assessed -Moisture (Genevieve-wound Skin Appearance) Assessed Assessed -Color (Genevieve-wound Skin Appearance) Assessed Assessed -Temperature (Genevieve-wound Skin No Abnormality No Abnormality Appearance) (Pt Warm) (Pt Warm) -Tenderness on Palpation (Genevieve-wound No No Skin Appearance) -Ulcer Cleansing Rinsed/ Rinsed/ Irrigated with Irrigated with Saline Saline -Foul Odor after Cleansing No No -Anesthetic Used 5% Lidocaine 4% Lidocaine Gel Solution WC - Nurse 2 - General Ulcer CM Notes Start: 11/07/24 10:14 Freq: Status: Active Protocol: Activity Type Activity Date Activity User E-sign Co-sign Detail Recorded Client Recorded Date Recorded By Document 11/07/24 10:45 [id number] 11/07/24 10:55 Edit Result 11/07/24 10:45 JF (1) [id number] 11/07/24 10:58 JF Document 11/21/24 10:07 JF [id number] 11/21/24 10:07 (1) #3 LT 4TH TOE - Post Debridement (cm) - Depth 0.3 => 0.2 11/07/24 11/21/24 10:45 10:07 Wound Center Nurse 2 #3 LT 4TH TOE -Time 10:51 -Correct Patient Yes No -Correct Side, Site, Position Yes No -Correct Procedure Yes No -Procedure Performed Yes No -Type of Procedure Debridement -Clinical Debridement Subcutaneous -Tissue Removed Subcutaneous -Post Debridement (cm) - Length 0.5 -Post Debridement (cm) - Width 0.5 -Post Debridement (cm) - Depth 0.2 -Total Square (Post) (cm) 0.25 -Area of Debridement (cm) - Length 0.5 -Area of Debridement (cm) - Width 0.5 -Total Square (Area) (cm) 0.25 -Tunneling No -Undermining/Tunneling No -Circular Undermining No -Wound/Ulcer Outcome Not Healed Not Healed -Ulcer Cleansing Rinsed/ Irrigated with Saline -Foul Odor after Cleansing No -Bioengineered Tissue No -Bleeding Controlled with Pressure -Treatment Response Procedure Tolerated Well -Offloading Yes -Type of Offloading Surgical Shoe -Debridement - Subq, 1st 20sq cm Yes Pain Scale: 0-10 Numeric Is Patient Pain Free? Yes Yes - Nurse 3 - General Ulcer D/C NN Start: 11/07/24 10:14 Freq: Status: Active Protocol: Activity Type Activity Date Activity User E-sign Co-sign Detail Recorded Client Recorded Date Recorded By Document 11/07/24 11:06 DL [id number] 11/07/24 11:10 DL Document 11/21/24 10:16 JF [id number] 11/21/24 10:17 JF 11/07/24 11/21/24 11:06 10:16 Wound Care Center Nurse 3 #3 LT 4TH TOE -Ulcer Cleansing Rinsed/ Rinsed/ Irrigated with Irrigated with Saline Saline -Foul Odor after Cleansing No No -Other Dressing bactrpban betadine -Primary Dressing Covered/Secured with Dry Gauze & Dry Gauze, Roll Gauze, Secured with Secured with Tape Tape -Wound Comment(s) Surgical Shoe given today. Dressing applied today per Harriet Hodge. Treatment Response Procedure Tolerated Well Pain Scale: 0-10 Numeric Is Patient Pain Free? Yes Yes WC - Visit Discharge Discharge Condition Stable Stable Ambulatory Status Ambulatory Ambulatory Transportation Private Auto Private Auto Medication Reconcilliation completed & Yes provided to patient/care provider Clinical Summary of Care Provided Yes Assessment/Plan Assessment/Plan (1) Non-pressure chronic ulcer of other part of left foot with fat layer exposed: CODE(S): L97.522 - Non-pressure chronic ulcer of other part of left foot with fat layer exposed PLAN: Patient was examined and evaluated. All findings were discussed with the patient. All questions were answered to the patient satisfaction. I would no debridement was done at this time as there shows evidence of callus and healing of the full-thickness wound to the dorsal aspect of the fourth digit left foot. Patient will continue to apply Betadine paint and Band-Aid. We will make recommendations to find a vascular surgeon who will perform the necessary surgery that cannot be done at [facility]. Patient was educated on this and she is agreeable. Patient will be seeing an curing press maintainer for continued blood sugar control. Patient was educated on to continue blood sugar controlled between 100 to 150 mg/dL. Educated the patient on smoking cessation Patient will follow-up in 1 to 2 weeks for evaluation. (2) Smoker: CODE(S): F17.200 - Nicotine dependence, unspecified, uncomplicated (3) Other specified peripheral vascular diseases: CODE(S): I73.89 - Other specified peripheral vascular diseases
--- NOTE | 2024-11-21 13:51 | WC ---
PHOTO 11/21/24 LEFT 4TH TOE
== END 2024-11-23 23:59 | disposition home or self-care (01) ==
LOC: WC 09:30
PROVIDERS: PCP Internal Medicine; Referring Provider Clinical Nurse Specialist; Visit Provider Podiatrist Foot & Ankle Surgery
DX: E11.621 Type 2 diabetes mellitus with foot ulcer (principal); L97.522 Non-pressure chronic ulcer of other part of left foot with fat layer exposed; E11.51 Type 2 diabetes mellitus with diabetic peripheral angiopathy without gangrene; Z79.4 Long term (current) use of insulin; I10 Essential (primary) hypertension; F17.210 Nicotine dependence, cigarettes, uncomplicated; Z79.01 Long term (current) use of anticoagulants; Z79.899 Other long term (current) drug therapy
CPT/HCPCS: 11042; 87070; 87075; 87205; 97802; 99213; 99214; G0463

== ENCOUNTER 2025-08-28 13:56 | Outpatient (RCR) | payer MEDICARE, MEDICAID, SELFPAY ==
[2024-11-24 01:19] VITALS: BP 137/83; PULSE 75; RESP 18; TEMP 36.1
[2025-08-28 14:25] VITALS: BP 131/87; PULSE 77; RESP 18; TEMP 36.6; BMI 30.8
--- NOTE | 2025-08-28 15:08 | PN.PCM_ITS ---
History of Present Illness Chief Complaint: left buttock ulcer History of Wound: Ms. Rojo is a 43-year-old diabetic female presenting to the wound care center today for follow-up evaluation and treatment of a left foot fourth digit full-thickness wound. Patient was seen by her vascular surgeon who had vascular studies performed. She has notable peripheral arterial disease due to decreased blood flow to left lower extremity. She does have a large past medical history and complications to peripheral vascular disease, diabetes, hypertension, tobacco use, COPD/asthma. Patient is concern for losing her digit on the left foot. She does admit to having to elevate out of bed and walk around due to decreased blood flow. She denies trauma to the left foot. Denies constitutional symptoms. No other pedal complaints at this time. Objective Data Objective Data Vital Signs: Vital Signs Temp Pulse Resp BP O2 Del Method 98 F 77 18 131/87 H Room Air 08/28/25 14:25 08/28/25 14:25 08/28/25 14:25 08/28/25 14:25 08/28/25 14:25 Oxygen Delivery Method Room Air Weight: 86.636 kg Body Mass Index (BMI) 30.8 Debridement Note Debridement Note Post-Debridement Measurements and Additional Note: Post-Debridement Measurements/Treatment - Nurse 1 - General Ulcer Assessment Start: 08/28/25 14:25 Freq: Status: Active Protocol: JIA Activity Type Activity Date Activity User E-sign Co-sign Detail Recorded Client Recorded Date Recorded By Document 08/28/25 14:25 RB [id number] 08/28/25 14:33 RB 08/28/25 14:25 - Today's Visit Information Type of service Initial Visit Arrival Mode Ambulatory Transfer Assistance None Patient Identification Verified (Name & Yes ) Patient Requires Transmission-Based No Precautions Height and Weight Height 5 ft 6 in Weight 86.636 kg Weight in Pounds 191.0 lbs Body Mass Index (BMI) 30.8 BMI Classification Obese Vital Signs Temperature (97.8 F-99.1 F) 98 F Temperature Source Temporal Pulse Rate (60-100) 77 Pulse Location Monitor Respiratory Rate (12-18) 18 Respiratory rate source Observation Oxygen Delivery Method Room Air Blood Pressure (90/60-120/80) 131/87 H Blood Pressure Mean (mm Hg) 101 Source Monitor Position Semi-Fowlers Blood Pressure Location Left Arm Pain Scale: 0-10 Numeric Is Patient Pain Free? No LLE -Description Aching -Intensity 8 -Duration (hours) Acute -Pain Behavior Guarding -Pain Aggravating Factors Exercise/ Activity -Alleviating Factors/Interventions Medication -Effectiveness of Alleviating Factor/ Moderately Intervention effective WC - Nurse 1 - General Ulcer Measurement Start: 08/28/25 14:25 Freq: Status: Active Protocol: Activity Type Activity Date Activity User E-sign Co-sign Detail Recorded Client Recorded Date Recorded By Document 08/28/25 14:25 RB [id number] 08/28/25 14:33 RB 08/28/25 14:25 Wound Center Nurse 1 7. L foot dorsal near 4th digit -Combined with other wound No -Current Size (cm) - Length 0.1 -Current Size (cm) - Width 0.1 -Current Size (cm) - Depth 0.1 -Total Square Cm 0.01 -Date of Last Picture (Recall this 08/28/25 field) -Photo Taken Yes -Tunneling No -Undermining/Tunneling No -Circular Undermining No -Exudate Amt Small -Exudate Type Serosanguineous -Wound Margin Distinct, Outline Attached -Granulation Amt Small (1-33%) -Granulation Quality [place] -Slough/Fibrin Yes -Necrosis Amt Large (67-100%) -Necrotic Tissue Type Adherent Slough -Structure Exposed N/A -Texture (Genevieve-wound Skin Appearance) Assessed -Moisture (Genevieve-wound Skin Appearance) Assessed -Color (Genevieve-wound Skin Appearance) Erythema -Temperature (Genevieve-wound Skin No Abnormality Appearance) (Pt Warm) -Tenderness on Palpation (Genevieve-wound No Skin Appearance) -Ulcer Cleansing Wound Cleanser -Foul Odor after Cleansing No -Anesthetic Used 5% Lidocaine Gel 6. L foot dorsal medial -Combined with other wound No -Current Size (cm) - Length 0.1 -Current Size (cm) - Width 0.1 -Current Size (cm) - Depth 0.1 -Total Square Cm 0.01 -Date of Last Picture (Recall this 08/28/25 field) -Photo Taken Yes -Tunneling No -Undermining/Tunneling No -Circular Undermining No -Exudate Amt Small -Exudate Type Serosanguineous -Wound Margin Distinct, Outline Attached -Granulation Amt Small (1-33%) -Granulation Quality [place] -Slough/Fibrin Yes -Necrosis Amt Large (67-100%) -Necrotic Tissue Type Adherent Slough -Structure Exposed N/A -Texture (Genevieve-wound Skin Appearance) Assessed -Moisture (Genevieve-wound Skin Appearance) Assessed -Color (Genevieve-wound Skin Appearance) Erythema -Temperature (Genevieve-wound Skin No Abnormality Appearance) (Pt Warm) -Tenderness on Palpation (Genevieve-wound No Skin Appearance) -Ulcer Cleansing Wound Cleanser -Foul Odor after Cleansing No -Anesthetic Used 5% Lidocaine Gel 5. L ankle lateral -Combined with other wound No -Current Size (cm) - Length 0.1 -Current Size (cm) - Width 0.1 -Current Size (cm) - Depth 0.1 -Total Square Cm 0.01 -Date of Last Picture (Recall this 08/28/25 field) -Photo Taken Yes -Tunneling No -Undermining/Tunneling No -Circular Undermining No -Exudate Amt Small -Exudate Type Serosanguineous -Wound Margin Distinct, Outline Attached -Granulation Amt Small (1-33%) -Granulation Quality [place] -Slough/Fibrin Yes -Necrosis Amt Large (67-100%) -Necrotic Tissue Type Adherent Slough -Structure Exposed N/A -Texture (Genevieve-wound Skin Appearance) Assessed -Moisture (Genevieve-wound Skin Appearance) Assessed -Color (Genevieve-wound Skin Appearance) Assessed, Erythema -Temperature (Genevieve-wound Skin No Abnormality Appearance) (Pt Warm) -Tenderness on Palpation (Genevieve-wound No Skin Appearance) -Ulcer Cleansing Wound Cleanser -Foul Odor after Cleansing No -Anesthetic Used 5% Lidocaine Gel 4.L knee lateral -Combined with other wound No -Current Size (cm) - Length 0.1 -Current Size (cm) - Width 0.1 -Current Size (cm) - Depth 0.1 -Total Square Cm 0.01 -Date of Last Picture (Recall this 08/28/25 field) -Photo Taken Yes -Tunneling No -Undermining/Tunneling No -Circular Undermining No -Exudate Amt Small -Exudate Type Serosanguineous -Wound Margin Distinct, Outline Attached -Granulation Amt Small (1-33%) -Granulation Quality [place] -Slough/Fibrin Yes -Necrosis Amt Large (67-100%) -Necrotic Tissue Type Adherent Slough -Structure Exposed N/A -Texture (Genevieve-wound Skin Appearance) Assessed -Moisture (Genevieve-wound Skin Appearance) Assessed -Color (Genevieve-wound Skin Appearance) Assessed, Erythema -Temperature (Genevieve-wound Skin No Abnormality Appearance) (Pt Warm) -Tenderness on Palpation (Genevieve-wound No Skin Appearance) -Ulcer Cleansing Wound Cleanser -Foul Odor after Cleansing No -Anesthetic Used 5% Lidocaine Gel Lower Limb Edema Present Yes Left Calf (cm) 37 Left Ankle (cm) 21 - Nurse 2 - General Ulcer CM Notes Start: 08/28/25 14:25 Freq: Status: Active Protocol: Activity Type Activity Date Activity User E-sign Co-sign Detail Recorded Client Recorded Date Recorded By Document 08/28/25 14:47 [id number] 08/28/25 14:49 08/28/25 14:47 Wound Center Nurse 2 7. L foot dorsal near 4th digit -Correct Patient Yes -Correct Side, Site, Position No -Correct Procedure No -Procedure Performed No -Wound/Ulcer Outcome Not Healed 6. L foot dorsal medial -Correct Patient Yes -Correct Side, Site, Position No -Correct Procedure No -Procedure Performed No -Wound/Ulcer Outcome Not Healed 5. L ankle lateral -Correct Patient Yes -Correct Side, Site, Position No -Correct Procedure No -Procedure Performed No -Wound/Ulcer Outcome Not Healed 4.L knee lateral -Correct Patient Yes -Correct Side, Site, Position No -Correct Procedure No -Procedure Performed No -Wound/Ulcer Outcome Not Healed Pain Scale: 0-10 Numeric Is Patient Pain Free? Yes - Nurse 3 - General Ulcer D/C NN Start: 08/28/25 14:25 Freq: Status: Active Protocol: Activity Type Activity Date Activity User E-sign Co-sign Detail Recorded Client Recorded Date Recorded By Document 08/28/25 14:58 [id number] 08/28/25 15:01 08/28/25 14:58 Wound Care Center Nurse 3 7. L foot dorsal near 4th digit -Ulcer Cleansing betadine 6. L foot dorsal medial -Ulcer Cleansing betadine 5. L ankle lateral -Ulcer Cleansing betadine 4.L knee lateral -Ulcer Cleansing betadine Pain Scale: 0-10 Numeric Is Patient Pain Free? Yes - Visit Discharge Discharge Condition Stable Ambulatory Status Ambulatory Transportation Private Auto Medication Reconcilliation completed & No provided to patient/care provider Clinical Summary of Care Provided Yes
--- NOTE | 2025-08-30 09:19 | WC ---
PHOTO-LEFT KNEE ANT 08/28/25
--- NOTE | 2025-08-30 09:21 | WC ---
PHOTO-LEFT LAT ANKLE 08/28/25
--- NOTE | 2025-08-30 09:23 | WC ---
PHOTO-LEFT DORSAL FOOT 4TH TOE 08/28/25
--- NOTE | 2025-08-30 20:07 | PCM.WC.HP ---
History of Present Illness Date of Service: 08/28/25 Chief Complaint: left buttock ulcer History of Wound: Ms. Rojo is a 44-year-old diabetic female presenting to the wound care center today for follow-up evaluation and treatment of a left foot fourth digit full-thickness wound. Patient was seen by her vascular surgeon who had vascular studies performed. She has notable peripheral arterial disease due to decreased blood flow to left lower extremity. She does have a large past medical history and complications to peripheral vascular disease, diabetes, hypertension, tobacco use, COPD/asthma. Patient is concern for losing her digit on the left foot. She does admit to having to elevate out of bed and walk around due to decreased blood flow. She denies trauma to the left foot. Denies constitutional symptoms. No other pedal complaints at this time. Progress of Wound: Patient is a 44-year-old diabetic female presenting to wound care center today follow-up evaluation of multiple full-thickness eschars left lower extremity. Patient is diabetic with controlled numbers. She still currently smokes. She has severe peripheral arterial disease without follow-up at vascular surgery. She denies any redness or drainage. Denies constitutional symptoms. Denies trauma. No other pedal complaints at this time. [facility] Medical History Asthma Type 2 diabetes mellitus Home Medications ?Medication ?Instructions ?Recorded ?Last Taken ?Type insulin NPH isoph U-100 human 100 10 units SQ BID 04/16/19 Unknown History unit/mL subcutaneous suspension gabapentin 300 mg capsule 300 mg PO BID PRN neuropathy #30 06/30/21 Unknown Rx caps insulin detemir U-100 100 unit/mL 30 unit subcut QHS 06/30/21 Unknown History subcutaneous solution (Levemir U-100 Insulin) Held on 08/28/25. Instructions: MD Ordered cholecalciferol (vitamin D3) 125 125 mcg PO DAILY 02/17/24 Unknown History mcg (5,000 unit) capsule duloxetine 30 mg capsule,delayed 30 mg PO DAILY 02/17/24 Unknown History release famotidine 40 mg tablet 40 mg PO QHS 02/17/24 Unknown History lisinopril 5 mg tablet 5 mg PO DAILY 02/17/24 Unknown History nystatin 100,000 unit/mL oral 5 ml PO 4X/DAY 02/17/24 Unknown History suspension oxycodone-acetaminophen 5 mg-325 1 tab PO Q6H PRN PRN pain 02/17/24 Unknown History mg tablet pregabalin 200 mg capsule 200 mg PO BID 02/17/24 Unknown History apixaban 5 mg tablet (Eliquis) 5 mg PO BID 03/30/24 Unknown History insulin glargine 100 unit/mL (3 50 unit subcut QPM 08/28/25 Unknown History mL) subcutaneous pen (Lantus Solostar U-100 Insulin) Allergy/AdvReac Type Severity Reaction Status Date / Time clindamycin Allergy Hives Verified 11/12/24 16:24 Family History Other Asthma COPD (chronic obstructive pulmonary disease) Cancer Diabetes Heart disease Surgical History History of skin graft Social History Smoking Status: Current every day smoker tobacco type: cigarettes Vital Signs Vital Signs Vital Signs: Weight Weight: 86.636 kg Body Mass Index (BMI) 30.8 Physical Exam Narrative Vascular: DP and PT pulses palpable. CFT brisk. No erythema or proximal streaking. Skin temperature is warm to warm with no focal increase. Nonpitting edema left lower extremity. Neurologic: Light touch is intact. Protective station is diminished at the digits but reestablished at the midfoot and ankle. Dermatologic: Multiple stable eschar to left lower extremity. No erythema drainage or concern for infection. Musculoskeletal: Muscle strength is 5/5 in all quadrants. No pain to palpation to the multiple eschars left lower extremity. No pain with calf pressure. Assessment/Plan Assessment/Plan (1) Other specified peripheral vascular diseases: CODE(S): I73.89 - Other specified peripheral vascular diseases PLAN: Patient was examined and evaluated. All findings were discussed with the patient. All questions were answered to the patient satisfaction. After examination the patient has evidence of multiple eschars to the left lower extremity. They are all stable with no concern of infection. Patient does not meet criteria to be treated at the wound care center. I did educate the patient to follow-up with me in private office for continued evaluation and care. We also authorized to the patient's insurance diabetic shoes and inserts. Will send referral to vascular specialist either at [facility] Or [facility] at the patient's request. Patient will follow-up with Dr. Zambrano at a private office in 1 week. (2) Acute painful diabetic polyneuropathy: CODE(S): E11.42 - Type 2 diabetes mellitus with diabetic polyneuropathy
== END 2025-08-30 09:32 | disposition home or self-care (01) ==
LOC: WC 13:56
PROVIDERS: PCP Internal Medicine; Referring Provider Clinical Nurse Specialist; Visit Provider Podiatrist Foot & Ankle Surgery
DX: E11.51 Type 2 diabetes mellitus with diabetic peripheral angiopathy without gangrene (principal); E11.42 Type 2 diabetes mellitus with diabetic polyneuropathy; Z79.4 Long term (current) use of insulin; F17.210 Nicotine dependence, cigarettes, uncomplicated; Z79.899 Other long term (current) drug therapy; R60.0 Localized edema
CPT/HCPCS: 99213; G0463